=== PATIENT | male | born 1955 | race Caucasian/White ===

== ENCOUNTER 2018-06-07 18:38 | Inpatient (IN) | payer SELFPAY ==
[2018-06-07 22:24] LABS: Troponin I Less than 0.010 ng/mL (< 0.028)
[2018-06-07 22:46] LABS: CKMB 9.3 ng/mL (0-6.6)
[2018-06-08 01:03] LABS: Troponin I Less than 0.010 ng/mL (< 0.028)
[2018-06-08] MEDS ORDERED: Acetaminophen 325 MG TAB PO PRN (01:35)
[2018-06-08] MEDS ORDERED: Ondansetron ODT 4 MG TAB SL PRN (01:35)
[2018-06-08] MEDS ORDERED: Ondansetron HCl/PF 4 MG/2 ML Vial IVP PRN (01:35)
[2018-06-08] MEDS ORDERED: Diltiazem HCl 125 MG, Admixture Fee 1 EACH in Sodium Chloride 0.9% 100 ML IVPB SCH ×2 (01:45→20:30)
[2018-06-08 02:01] VITALS: BMI 33.4
[2018-06-08 04:33] LABS: Troponin I 0.041 ng/mL (< 0.028)
[2018-06-08] MEDS ORDERED: Metoprolol Tartrate 25 MG TAB PO SCH (11:15)
[2018-06-08] MEDS ORDERED: Topiramate 100 MG TAB PO SCH (11:15)
[2018-06-08] MEDS ORDERED: Furosemide 20 MG TAB PO SCH (11:15)
[2018-06-08] MEDS ORDERED: Levothyroxine Sodium 50 MCG TAB PO SCH (11:15)
[2018-06-08] MEDS ORDERED: Divalproex Sodium 250 MG (DR) TAB PO SCH (11:15)
[2018-06-08] MEDS ORDERED: Gabapentin 400 MG CAP PO SCH (11:15)
[2018-06-08] MEDS ORDERED: Loratadine 10 MG TAB PO SCH (11:15)
[2018-06-08 11:20] LABS: Bilirubin Negative (Negative); Blood, Urine Negative (Negative); Glucose, Urine (Dipstick) Negative (Negative); Leukocyte Negative (Negative); Nitrite Negative (Negative); Protein, Urine (Dipstick) Negative (Neg-Trace); Specific Gravity, Urine 1.015 (1.005-1.030); pH, Urine 7.5 (5.0-9.0)
[2018-06-08 11:22] LABS: Clarity Clear (Clear)
[2018-06-08 12:02] LABS: INR-International Normal Ratio 1.9; Prothrombin Time 21.5 SEC (12.0-14.7)
[2018-06-08] MEDS ORDERED: Digoxin 0.5 MG/2 ML AMP SLOW IVP SCH (14:30)
[2018-06-08] MEDS ORDERED: Enoxaparin Sodium 40 MG/0.4 ML SYRINGE SC SCH (16:15)
[2018-06-08] MEDS: Gabapentin 400 MG CAP PO SCH ×2 (16:36→20:42)
[2018-06-08] MEDS: Divalproex Sodium 250 MG (DR) TAB PO SCH ×2 (16:36→20:43)
[2018-06-08] MEDS ORDERED: Warfarin Sodium 5 MG TAB PO SCH (17:00)
--- NOTE | 2018-06-08 19:06 | CON ---
DATE OF CONSULTATION: 06/08/2018 REASON FOR CONSULTATION: Atrial flutter. PRIMARY CHILD DEVELOPMENT ASSISTANT: Juan Nicholson M.D. HISTORY OF PRESENT ILLNESS: Mr. Thomason is a very pleasant 62-year-old white gentleman who comes to the hospital for tachycardia. He was at his regular appointment with his physician for his lower ext remity edema and back pain. He was found to have a heart rate in the 130s range, so he was transferr ed over as he was found to be in atrial flutter. He has a history of paroxysmal atrial fibrillation. He has been in and out of atrial fibrillation actually last time we saw him was in December of this year. He had an echo at that time that showed he had asymmetric septal hypertrophy; However, his LV OT did not show any significant gradient. His EF was normal and he was in atrial fibrillation at daiana t time. By the time I saw him a few days later, he was already back in sinus rhythm. He has been to lerating his amiodarone well as well as his anticoagulation. He has a history of seizure disorder, b ut has not had one in many years. PAST MEDICAL HISTORY: 1. Paroxysmal atrial fibrillation. 2. Seizure disorder in remission for many years. 3. Hypothyroidism. 4. Hyperlipidemia. PAST SURGICAL HISTORY: 1. Neurostimulator implants on the left chest. 2. Spinal surgery. OUTPATIENT MEDICATIONS: Include, 1. Divalproex. 2. Gabapentin. 3. Topiramate. 4. Levothyroxine 50 mcg a day. 5. Metoprolol 25 mg twice a day. 6. Zyrtec. 7. Lasix 20 mg a day. 8. MiraLax. 9. Warfarin. 10. Simvastatin 20 mg at bedtime. 11. Amiodarone 200 mg a day. ALLERGIES: No known drug allergies. SOCIAL HISTORY: No alcohol, tobacco or drugs. Lives with his brother and [id number]. Sister-in- law is very involved in his care. FAMILY HISTORY: Mother at 70 of unknown causes. Father is alive with dementia. REVIEW OF SYSTEMS: A 12-point review of systems was done and negative unless stated in the history o f present illness. PHYSICAL EXAMINATION: VITAL SIGNS: Temperature 97.5, pulse 124, respiratory rate 20, satting 95% on room air, blood pressu re 119/69. GENERAL: Awake, alert, and oriented x3, in no distress. HEENT: Normocephalic, atraumatic. NECK: Supple. LUNGS: Clear. CARDIOVASCULAR: S1, S2, no S3, S4, no murmurs. ABDOMEN: Soft with positive bowel sounds. EXTREMITIES: No edema. SKIN: Warm and dry. LABORATORY WORK: Reviewed. Potassium was normal. Troponin is negative x2. BNP was only 263, trigl ycerides 169, otherwise normal cholesterol LDL of 58. TSH was normal. UA unremarkable. Valproic ac id was normal. INR was 2.4 yesterday, 1.9 today. CBC unremarkable. ASSESSMENT AND PLAN: Atypical atrial flutter: He does have a history of this. I have not really st opped his amiodarone, he might have stopped it recently with his edema and he was being treated with Lasix as well. Electrophysiology already evaluated and he will get a cardioversion in the morning, I could perform this tomorrow. He can most likely go home after that. We will follow up with him in the office with an outpatient echo in about 1-2 months. Thank you for letting us participate in the care of your patient. We will follow.
[2018-06-08] MEDS: Topiramate 100 MG TAB PO SCH (20:43)
[2018-06-08] MEDS: Metoprolol Tartrate 25 MG TAB PO SCH (20:43)
[2018-06-08] MEDS: Atorvastatin Calcium 10 MG TAB PO SCH (20:43)
[2018-06-09] MEDS: Levothyroxine Sodium 50 MCG TAB PO SCH (04:17)
[2018-06-09] MEDS: Loratadine 10 MG TAB PO SCH (04:17)
[2018-06-09] MEDS: Metoprolol Tartrate 25 MG TAB PO SCH ×2 (04:17→21:10)
[2018-06-09] MEDS: Topiramate 100 MG TAB PO SCH ×2 (04:17→21:13)
[2018-06-09] MEDS: Gabapentin 400 MG CAP PO SCH ×3 (04:18→21:11)
[2018-06-09] MEDS: Divalproex Sodium 250 MG (DR) TAB PO SCH ×3 (04:18→21:11)
[2018-06-09 04:58] LABS: INR-International Normal Ratio 1.8; Prothrombin Time 20.8 SEC (12.0-14.7)
--- NOTE | 2018-06-09 08:48 | CON ---
DATE OF CONSULTATION: 06/08/2018 ELECTROPHYSIOLOGY CONSULTATION REPORT REFERRING PHYSICIAN: Dr. Nicholson. I am seeing Mr. Thomason at our [facility] telemetry for electrophysiology field sales consultant. His p roblems are, 1. Recurrent atrial arrhythmias. A. Paroxysmal atrial fibrillation, status post extensive left atrial ablation procedure, Dr. Garcia dt in January 2017. On the early recurrence of atrial flutter, prompting amiodarone initiation and car dioversion in 02/2017. B. Amiodarone stopped in about 07/2017. C. Current presentation with atypical atrial flutter with rapid rates of unclear duration. 2. On chronic anticoagulation with creatinine 1.9. 3. History of hypertension. 4. History of obesity. 5. History of traumatic brain injury and subsequent craniotomy, seizure disorder, chronic mental sta tus changes. 6. Seizure disorder, under control with vagal stimulator in place. ALLERGIES: None noted. MEDICATIONS AT HOME: Include simvastatin, gabapentin, Depakote, levothyroxine, topiramate, furosemid e, cetirizine, warfarin, metoprolol. SUBJECTIVE: Mr. Thomason is here due to the fact that his primary care physician, Dr. Christianson has foun d atrial flutter/fibrillation and rapid rates at his office. He was sent to the ER in [place], eventually transferred to our facility, he was placed on diltiazem drip and his rates are better cont rolled now. Throughout this, he voiced minimal complaints, although he is rather a poor historian. There is some notion of increased lower extremity edema recently. He denies dizziness, loss of consc iousness, no stroke-like symptoms, no chest pain, no fever, chills, cough, no bleeding issues. He re gularly checks his INR levels. REVIEW OF SYSTEMS: Twelve-point system otherwise unremarkable. PAST MEDICAL HISTORY: As above. SOCIAL HISTORY: Patient denies smoking, ETOH or drug use. FAMILY HISTORY: Noncontributory. OBJECTIVE: VITAL SIGNS: Blood pressure 151/94, heart rate 124, respirations 20, temperature 98.7 degrees Fahren heit. GENERAL: He is alert and oriented, obese man in no apparent distress. NECK: Supple. Jugular veins not distended. CHEST: Coarse without crackles. CARDIAC: Heart sounds are irregularly irregular. S1 and S2 variable. No murmur or gallop. ABDOMEN: Benign. Bowel sounds positive. EXTREMITIES: Lower extremities without edema, clubbing or cyanosis. Pulses are adequate. DATABASE: EKG initially reveals atrial flutter with variable AV conduction, it appears to be atypica l atrial flutter present. Cannot completely rule out . LABORATORY DATA: Sodium 139, potassium 4.2 yesterday, BUN is 15, creatinine is 1.32. The AST, ALT a re 23 and 22. BNP was 263, total cholesterol 122. The INR 1.9 today, 2.4 yesterday, 2.3 on 05/23 an d 2.2 on 05/08. Chest x-ray from yesterday revealed active cardiopulmonary abnormalities. ASSESSMENT AND PLAN: Mr. Thomason is a pleasant 62-year-old man with prior history of traumatic brain injury, persistent atrial fibrillation pulmonary venous isolation. He had some recurrent atri al flutter, is now off amiodarone. We discussed treatment options with his family present. It would be reasonable to cardiovert him and consider resuming some antiarrhythmic agents. He has done well on amiodarone in the past. If his l eft ventricular function is preserved, we could consider also Multaq as an alternative. We will obta in a 2D echo and schedule him for cardioversion tomorrow. His INR levels have been good yesterday, s lightly on the lower end today, need extra Lovenox to minimize chance of stroke. For now, I agree wi th rate control, continue digoxin, IV diltiazem, and metoprolol p.o. We will follow with you. Thank you for the consult.
[2018-06-09] MEDS: Furosemide 20 MG TAB PO SCH (10:50)
[2018-06-09] MEDS ORDERED: PROPOFOL 20 ML ONE (12:46)
--- NOTE | 2018-06-09 14:00 | EKG ---
Test Reason : Blood Pressure : / mmHG Vent. Rate : 125 BPM Atrial Rate : 250 BPM P-R Int : 000 ms QRS Dur : 090 ms QT Int : 332 ms P-R-T Axes : 006 038 004 degrees QTc Int : 479 ms Unusual P axis, possible ectopic atrial tachycardia Abnormal ECG Confirmed by ELENO TROTTER ([id number]) on 06/09/2018 1:59:31 PM Referred By: JEAN Confirmed By:ELENO TROTTER
[2018-06-09] MEDS ORDERED: PROPOFOL 200 MG/20 ML VIAL ONE (14:19)
[2018-06-09] MEDS ORDERED: Enoxaparin Sodium 40 MG/0.4 ML SYRINGE SC SCH (15:15)
[2018-06-09] MEDS ORDERED: Dronedarone HCl 400 MG TAB PO SCH (15:30)
--- NOTE | 2018-06-09 17:09 | PDOC.CTH ---
Cardiology Progress Note - Subjective No new issues. - Objective Vital Signs Temp Pulse Resp BP Pulse Ox 06/09/18 11:48 97.5 F L 63 19 115/69 92 L 06/09/18 08:00 97.8 F 63 16 06/09/18 07:29 97.8 F 63 16 107/61 94 L Weight 273 lb 06/08/18 06/09/18 06/10/18 06:59 06:59 06:59 Intake Total 5.8 1294.6 Output Total 350 800 350 Balance -344.2 494.6 -350 - Physical Examination General/Neuro: alert & oriented x3, NAD Neck: no JVD present Lungs: unlabored respirations Heart: other: (irreg) Abdomen: NT/ND Extremities: + edema B (trace) - Telemetry Telemetry Rhythm: Aflutter - Labs Troponin/CKMB CK-MB (CK-2) 9.3 ng/mL (0-6.6) H* 06/07/18 21:42 Troponin I 0.041 ng/mL (< 0.028) H 06/08/18 04:03 - Assessment/Plan 1. Atypical atrial flutter. 2. Hx of afib s/p ablation PLAN: - Cardioversion today.
[2018-06-09] MEDS: Warfarin Sodium 2.5 MG TAB PO SCH (18:11)
--- NOTE | 2018-06-09 20:50 | OP ---
DATE OF SERVICE: 06/09/2018 CARDIOVERSION REPORT REFERRING PHYSICIAN: Juan Nicholson M.D. REASON FOR PROCEDURE: Mr. Thomason is a 62-year-old man with prior history of atrial arrhythmias. He underwent prior ablation and subsequently required amiodarone for suppression of his rhythm. He is now here with recurrent arrhythmias. He has been on warfarin and adequate anticoagulation. PROCEDURE IN DETAIL: The patient received propofol per Anesthesia specialist. After adequate level of sedation achieved, a synchronized 70 joule shock failed to convert him back to sinus rhythm. A fo llowup 150 joule shock, though convert him back to sinus rhythm with a rate about 55. The patient to lerated the procedure well, no complications noted. PLAN: Continue anticoagulation, target INR 2-3. Stop IV diltiazem and add Multaq to the regimen.
[2018-06-09] MEDS: Atorvastatin Calcium 10 MG TAB PO SCH (21:10)
--- NOTE | 2018-06-09 23:26 | PDOC.PN ---
- Subjective Encounter Start Date: 06/09/18 Encounter Start Time: 16:00 Subjective: nsg notes rev, bennie ovn, no new c/o, no active palpitations at this time -: denies CP, SOB - Objective Vital Signs & Weight: Vital Signs (12 hours) Temp Pulse Resp BP Pulse Ox 06/09/18 20:00 98.7 F 90 18 126/91 H 96 06/09/18 11:48 97.5 F L 63 19 115/69 92 L Weight Weight 273 lb I&O: 06/08/18 06/09/18 06/10/18 06:59 06:59 06:59 Intake Total 5.8 1294.6 250 Output Total 350 800 350 Balance -344.2 494.6 -100 Phys Exam - Physical Examination Constitutional: NAD lying in hospital bed HEENT: PERRLA, moist MMs Respiratory: no wheezing, no rales, no rhonchi, clear to auscultation bilateral Cardiovascular: RRR, no significant murmur, no rub Gastrointestinal: soft, positive bowel sounds Musculoskeletal: pulses present Neurological: moves all 4 limbs Psychiatric: normal affect, A&O x 3 Dx/Plan - Plan cont current plan of care * atrial flutter * s/p ablation * apprec card c/s, EP c/s * mgmt as per specialty recs hypothyroidism - stable, continue home regimen hx TBI s/o neurostim - stable, continue home regimen CKD -stable, continue home regimen diet: cardiac activity: as puja
[2018-06-10 05:31] LABS: Prothrombin Time 23.1 SEC (12.0-14.7)
[2018-06-10] MEDS: Levothyroxine Sodium 50 MCG TAB PO SCH (06:03)
[2018-06-10] MEDS: Loratadine 10 MG TAB PO SCH (09:33)
[2018-06-10] MEDS: Dronedarone HCl 400 MG TAB PO SCH ×2 (09:33→17:01)
[2018-06-10] MEDS: Metoprolol Tartrate 25 MG TAB PO SCH (09:33)
[2018-06-10] MEDS: Gabapentin 400 MG CAP PO SCH ×2 (09:33→15:33)
[2018-06-10] MEDS: Furosemide 20 MG TAB PO SCH (09:34)
[2018-06-10] MEDS: Divalproex Sodium 250 MG (DR) TAB PO SCH ×2 (09:34→15:30)
[2018-06-10] MEDS: Topiramate 100 MG TAB PO SCH (09:35)
--- NOTE | 2018-06-10 11:40 | PDOC.CTH ---
<Elvia Zuniga - Last Filed: 06/10/18 11:38> Cardiology Progress Note - Subjective EP progress note: patient seen an evaluated. No new cardiac concerns or complaints. Family is bedside. Feeling fine after DCCV yesterday. Seems to be tolerating Multaq well. Denies heart racing, palpitations, chest pain/pressure, stroke like symptoms, passing out or lightheaded. - Objective Vital Signs Temp Pulse Resp BP Pulse Ox 06/10/18 08:00 96.3 F L 89 18 135/93 H 94 L 06/10/18 03:57 97.7 F 88 16 126/80 95 Weight 273 lb 06/09/18 06/10/18 06/11/18 06:59 06:59 06:59 Intake Total 1294.6 250 Output Total 800 350 Balance 494.6 -100 - Physical Examination General/Neuro: NAD, other: (alert. mentally slow) Neck: no JVD present Lungs: CTA, unlabored respirations Heart: PMI normal, RRR Abdomen: NT/ND, soft - Telemetry Telemetry Rhythm: NSR - Labs Troponin/CKMB CK-MB (CK-2) 9.3 ng/mL (0-6.6) H* 06/07/18 21:42 Troponin I 0.041 ng/mL (< 0.028) H 06/08/18 04:03 - Assessment/Plan 1. Late recurrent atrial arrhythmias. Hx atrial fibrillation s/p PVAI in the remote past. Now with recent atrial flutter s/p DCCV yesterday. Maintaining NSR with AF suppressed by Multaq. Has been on amiodarone in the past with moderate suppression. If Multaq fails, we will discuss potential further treatment options. 2. OAC on warfarin: CHADS2-Vasc score of 1 on the basis of hypertension. Continue with warfarin, goal INR 2-3. Reconsider OAC in future if high bleed risk. 3. Preserved EF by 2D echo 55-60% OK for DC by EP. Follow up in 4-6 weeks with [facility] will be arranged. <Jimmy Enriquez - Last Filed: 06/10/18 14:55> Cardiology Progress Note - Objective Vital Signs Temp Pulse Resp BP Pulse Ox 06/10/18 12:00 96.9 F L 82 17 128/88 95 06/10/18 08:00 96.3 F L 89 18 135/93 H 94 L 06/10/18 03:57 97.7 F 88 16 126/80 95 Weight 273 lb 06/09/18 06/10/18 06/11/18 06:59 06:59 06:59 Intake Total 1294.6 250 Output Total 800 350 Balance 494.6 -100 - Labs Troponin/CKMB CK-MB (CK-2) 9.3 ng/mL (0-6.6) H* 06/07/18 21:42 Troponin I 0.041 ng/mL (< 0.028) H 06/08/18 04:03 Attending Addendum - Attending Addendum Date/Time: 06/10/18 [id number] I personally evaluated the patient and discussed the management with Ms Zuniga. I agree with the History, Examination, Assessment and Plan documented above with any addition or exceptions noted below.
[2018-06-10 15:38] VITALS: BP 133/77; TEMP 97.4
[2018-06-10] MEDS: Warfarin Sodium 2.5 MG TAB PO SCH (17:01)
== END 2018-06-10 18:23 | disposition home or self-care (01) | DRG 310 ==
LOC: ERS 18:38 → 2SW 23:15 → OBSVTOIN 23:15 → 2NO 06-09 13:08
PROVIDERS: ADMIT Family Medicine; ATTEND Family Medicine
PROC: 5A2204Z Restoration of Cardiac Rhythm, Single (ICD-10-PCS; principal; 2018-06-09)
DX: I48.0 Paroxysmal atrial fibrillation (principal); Z79.01 Long term (current) use of anticoagulants; E66.9 Obesity, unspecified; I48.92 Unspecified atrial flutter; G40.909 Epilepsy, unspecified, not intractable, without status epilepticus; E78.5 Hyperlipidemia, unspecified; E03.9 Hypothyroidism, unspecified; K59.00 Constipation, unspecified; H91.90 Unspecified hearing loss, unspecified ear; D69.6 Thrombocytopenia, unspecified; M54.5 Low back pain; I12.9 Hypertensive chronic kidney disease with stage 1 through stage 4 chronic kidney disease, or unspecified chronic kidney disease; N18.9 Chronic kidney disease, unspecified; Z68.33 Body mass index [BMI] 33.0-33.9, adult
CPT/HCPCS: 36415; 80164; 81003; 82553; 84443; 84484; 85610; 92960; 93005; 93010; 93306; 96365; 96366; A4216; J1650; J2704; J7050

== ENCOUNTER 2018-10-24 18:45 | Observation (INO) | payer MEDICARE, SELFPAY ==
[2018-10-24 19:20] LABS: #Lymphocytes 1.2 thou/uL (1.20-3.40); #Monocytes 1.2 thou/uL (0.11-0.59); #Neutrophils 5.6 thou/uL (1.40-6.50); %Basophils 0.5 % (0.0-1.0); %Eosinophils 0.5 % (0.0-10.0); %Monocytes 14.9 % (0.0-10.0); %Neutrophils 69.2 % (42.0-75.0); Hemoglobin 14.3 g/dL (14.0-18.0); Mean Corpuscular HGB CONC 33.2 g/dL (32.0-36.0); Mean Corpuscular Hemoglobin 30.7 pg (27.0-31.0); Mean Corpuscular Volume 92.5 fL (78.0-98.0); Mean Platelet Volume 9.6 fL (7.4-10.4); Platelet Count 137 thou/uL (130-400); RBC Distribution Width 13.7 % (11.5-14.5); Red Blood Cell (RBC) Count 4.66 mill/uL (4.70-6.10); White Blood Cell (WBC) Count 8.1 thou/uL (4.8-10.8)
[2018-10-24 19:25] LABS: INR-International Normal Ratio 1.8; PTT 35.6 SEC (22.9-36.1); Prothrombin Time 21.2 SEC (12.0-14.7)
[2018-10-24 19:44] LABS: Troponin I Less than 0.010 ng/mL (< 0.028)
[2018-10-24 19:45] LABS: Bilirubin Small (Negative); Blood, Urine Negative (Negative); Clarity CLEAR (Clear); Glucose, Urine (Dipstick) Negative (Negative); Leukocyte Negative (Negative); Nitrite Negative (Negative); Protein, Urine (Dipstick) Negative (Neg-Trace); Specific Gravity, Urine 1.023 (1.002-1.036)
[2018-10-24 19:45] LABS: ALT (SGPT) 25 U/L (8-55); AST (SGOT) 37 U/L (5-34); Albumin 4.1 g/dL (3.4-4.8); Alkaline Phosphatase 80 U/L (40-150); Anion Gap 8 mmol/L (10-20); BUN (Urea Nitrogen) 21 mg/dL (8.4-25.7); Bilirubin, Total 0.9 mg/dL (0.2-1.2); CK (CPK) 1016 U/L (30-200); Calc. Creatinine Clearance 0 mL/min (70-130); Calcium 9.3 mg/dL (7.8-10.44); Carbon Dioxide 27 mmol/L (23-31); Chloride 102 mmol/L (98-107); Estimated GFR-MDRD 61; Globulin 3.9 g/dL (2.4-3.5); Glucose 71 mg/dL (80-115); Lipase 41 U/L (8-78); Potassium 4.2 mmol/L (3.5-5.1); Sodium 133 mmol/L (136-145)
[2018-10-24] MEDS ORDERED: levETIRAcetam In NaCl (Iso-Os) 1,000 MG in Premix Bag 1 BAG IVPB ONE (19:45)
[2018-10-24 19:48] LABS: CKMB 13.4 ng/mL (0-6.6)
--- NOTE | 2018-10-24 20:33 | RAD ---
PORTABLE CHEST: HISTORY: Seizure with patient found on floor, complaining of back pain. FINDINGS: Heart size is slightly enlarged. An electronic device is seen overlying the left chest. The lungs a re clear of infiltrates. I do not see any signs of pneumothorax or rib fractures. IMPRESSION: Cardiomegaly. POS: [facility]
--- NOTE | 2018-10-24 21:13 | CT ---
HEAD CT WITHOUT CONTRAST: 10/24/2018 HISTORY: Possible seizure activity. COMPARISON: 02/24/2017 TECHNIQUE: Axial CT imaging at 5 mm intervals, from the vertex through the skull base, without contrast. FINDINGS: The imaged paranasal sinuses and mastoid air cells are well aerated. There is evidence of a prior ri ght-sided craniotomy. No intracranial hemorrhage, midline shift, or mass effect is seen. There is m ild diffuse cerebral volume loss, stable. Stable kevin cisterna magna noted. No intracranial hemorrh age, midline shift, or mass effect. IMPRESSION: Stable head CT. No acute findings. POS: [facility]
[2018-10-25] MEDS ORDERED: WARFARIN PO PRN (02:37)
[2018-10-25 03:33] LABS: INR-International Normal Ratio 1.9; Prothrombin Time 21.8 SEC (12.0-14.7)
[2018-10-25] MEDS: Levothyroxine Sodium 50 MCG TAB PO SCH (07:45)
[2018-10-25] MEDS ORDERED: Divalproex Sodium DR 500 MG TAB PO SCH ×3 (09:00→11:45)
[2018-10-25 10:15] VITALS: BMI 26.9
[2018-10-25] MEDS ORDERED: Metoprolol Tartrate 25 MG TAB ONE (11:23)
[2018-10-25] MEDS: Metoprolol Tartrate 25 MG TAB PO SCH ×2 (11:31→21:27)
--- NOTE | 2018-10-25 12:25 | HP ---
CHIEF COMPLAINT: Seizure. HISTORY OF PRESENT ILLNESS: Patient is a 63-year-old male, who has a history of a seizure and also h as a history of falls causing cerebral bleeding and status post craniotomy, who presented to the hosp ital after he was found down by his family member. The patient's sister is at the bedside stated daiana t she and her brother keep a very close eye on the patient in regard to medications and his appointme nts and so on and so forth. Patient's sister stated that last time she saw him was Wednesday at 9:00 a. m. when he was complaining of some right-sided shoulder pain and back pain when she put out his medic ations for the following week. Patient's sister then stated that, when she went to pick him up on around 4:30 for his appointment, she saw him lying next to the recliner and [facility]. The patient's sister stated, at that time, he was awake and was responsive at this ti me. EMS was called and the patient was brought into the hospital for further evaluation. The patient's sister stated that the only recent changes on his medications has been the Neurontin, w hich was decreased from 1200 mg t.i.d. to 900 mg t.i.d.; it was done about a month ago. The patient, according to her, has been compliant with medications except for Wednesday when she noticed that he did not take his medications. She states that there is normally an alarm that will go off to remind him to take his medications. Patient currently is awake, slow in responding, follows commands. Denies any fever or chills; however, complains of generalized body aches and pains all over. PAST MEDICAL HISTORY: 1. He has a history of seizures since young age. 2. He also has a history of atrial fibrillation, status post cardioversion, currently is in sinus. He is on anticoagulation. 3. He has hypothyroidism. 4. Dyslipidemia. 5. Hypertension. 6. Gastroesophageal reflux disease. PAST SURGICAL HISTORY: The patient has had a craniotomy after a seizure, which caused him to have a fall, which caused a brain bleed. Per notes, the patient also has had a neurostimulator for his seiz ures in the past. CURRENT MEDICATIONS: That are in the computer are as of the followin. Patient takes warfarin 2.5 Tuesdays and and takes 5 mg the remaining. 2. He is on Lasix of 20 mg daily. 3. He is on Multaq 400 mg b.i.d. 4. He is on Depakote 500 mg t.i.d. 5. He is on sertraline 10 mg daily. 6. He is on gabapentin 900 mg t.i.d. 7. Levothyroxine 50 mcg daily. 8. Metoprolol 25 mg daily. 9. Simvastatin 20 mg daily. 10. Topamax 100 mg b.i.d. ALLERGIES: Patient has no known drug allergies. SOCIAL HISTORY: Denies any alcohol use, drug use. Patient lives alone, he does not drive. This is per previous documentations. FAMILY HISTORY: Mother at the age of 72 from unknown causes. REVIEW OF SYSTEMS: Unable to obtain. Currently, patient still has some confusion. PHYSICAL EXAMINATION: VITAL SIGNS: As of the following, temperature of 98.8. His heart rate was in 69. His blood pressur e was 137/84, 99% on room air, 16 respirations. GENERAL: He is awake, alert, oriented x2. CARDIOVASCULAR: S1 and S2 present, regular rhythm. No murmurs heard. LUNGS: Clear to auscultation. No rhonchi or wheezes noted. ABDOMEN: Soft and nontender. Bowel sounds are present x2. EXTREMITIES: He does have +1 lower extremity pitting edema. SKIN: He does have chronic venous changes in his bilateral lower extremities. MUSCULOSKELETAL: Neurovascular rudd, he has no focal deficits. He is able to move his bilateral upp er extremity 5/5, bilateral lower extremity 5/5. Sensation is also intact bilateral upper and bilate ral lower. NEUROLOGIC: He is able to tell me his name. He is able to tell me he is in the hospital. He recogn izes his sister. He is able to follow commands; however, he does not recall what month and year we a re in. Per the patient's sister, this is not normal for him. LABORATORY RESULTS: As of the following: WBCs of 8.1, hemoglobin of 14.4, hematocrit 43.2, platelet s of 137. Chemistries: Sodium of 133, potassium of 4.2, BUN of 21, creatinine 1.21. Glucose was 71 . CK was 1016. CK-MB was 13.4. LFTs: His AST was mildly elevated, which also has been elevated pr eviously. I checked an ammonia level, which was 47. His TSH was 3.12 and his vitamin B12 level was 299, and his prolactin level was 6.43. He did have a chest x-ray, which did not indicate any acute a bnormalities per my interpretation. Also, a brain CT did not show any acute bleeds. Urinalysis was normal. ASSESSMENT AND PLAN: The patient is a very pleasant 63-year-old male, who presents to the hospital a fter being found down by family. 1. Acute on chronic seizure. The patient's Depakote level was 25, which is low, normal is between 5 0-100. I did consult Neurology, who recommended giving him a loading dose of 1500 mg currently and t hen increasing it to 1000 b.i.d. The patient did get Keppra in the ER. I do not think there is any infectious etiology that could precipitate this like urinary tract infection or pneumonia. The patie nt has no symptoms currently or per his sister either. The patient's Neurontin was recently changed from 1200 mg t.i.d. to 900 mg t.i.d. This could be a possibility. However, this change was made abo wa a month ago. The patient's family also is pretty adamant that he is very compliant with his medic ations, maybe switching him from something like Depakote to maybe Keppra would possibly be a good opt ion. 2. Rhabdomyolysis. The patient's CK was 1016. His urinalysis did not indicate any blood or any RBC s were not checked. We will continue some IV hydration. This is probably from the fall and we will continue to monitor. 3. Dehydration. The patient clinically appeared very dehydrated. We will continue some IV hydratio n. 4. History of atrial fibrillation, currently he is sinus rhythm. His INR was subtherapeutic, his IN R was 1.9. We will continue his Coumadin. There is a risk of falls and being on Coumadin. I discus sed this with the sister. However, currently she wants everything to be continued for now. 5. Deep venous thrombosis prophylaxis. The patient is already on Coumadin. So, I did speak with the patient's sister, who was concerned about the patient's mentation still not being at baseline. I explained to her this could be multifactorial given the fact that the patient a ppears dehydrated, has rhabdomyolysis, and also had a seizure, and given his history of brain injury and craniotomy, might take some time getting back to baseline. Patient currently is able to move all extremities and to follow commands. However, he is just very slow in responding, which she states t hat normally he is very slow in responding, but according to her, he is more slower than his usual se lf. Again, he does not have a urinary tract infection. Chest x-ray did not indicate any acute abnor malities, and also echocardiogram, which was done in 05/2018, indicated an EF of 55%-60% with just so me mild mitral regurgitation and mild tricuspid regurgitation.
--- NOTE | 2018-10-25 15:22 | EEG ---
Referring Physician: Jamar MARCUM EEG # [id number] TEST TYPE: ROUTINE PORTABLE INPATIENT REPORT: AN EEG USING THE INTERNATIONAL TEN-TWENTY SYSTEM OF ELECTRODE PLACEMENT WAS PERFORMED. The best waking background is a low amplitude 9 hertz alpha frequency. Overall , the background is a bit suppressed over both hemispheres. Photic stimulation was unremarkable. No epileptiform features were present. No sleep transients were noted. IMPRESSION: THIS STUDY SUGGESTS A POST-ICTAL STATE WITHOUT ANY EPILEPTIFORM FEATURES Scout: NEY Assistant Teaching Professor: EEG.CARL JUÁREZ
[2018-10-25] MEDS ORDERED: Warfarin Sodium 2.5 MG TAB PO SCH (17:00)
[2018-10-25] MEDS: Loratadine 10 MG TAB PO SCH (20:22)
[2018-10-25] MEDS: Topiramate 100 MG TAB PO SCH ×2 (20:22→21:27)
[2018-10-25] MEDS: Dronedarone HCl 400 MG TAB PO SCH (20:22)
[2018-10-25] MEDS: Gabapentin 300 MG CAP PO SCH ×2 (20:23→21:27)
[2018-10-25] MEDS ORDERED: Amiodarone 200 MG TAB PO SCH (21:00)
[2018-10-25] MEDS: Divalproex Sodium DR 500 MG TAB PO SCH (21:26)
[2018-10-25] MEDS: Atorvastatin Calcium 10 MG TAB PO SCH (21:27)
--- NOTE | 2018-10-25 21:33 | CON ---
DATE OF CONSULTATION: 10/25/2018 CONSULTING PHYSICIAN: ER Services. IMPRESSION: Recurrent seizure secondary to missed doses and subtherapeutic level of Depakote. PLAN: 1. The patient has been loaded with 1500 mg IV and will continue on higher maintenance dose of 1000 mg twice a day. 2. Follow up with his [facility] neurologist. HISTORY OF PRESENT ILLNESS: Mr. Thomason is a 63-year-old man who has a history of traumatic brain injury some 18 years ago. He has some residual cognitive impairment and is not held on a job in quite sometime. 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 He has been followed by neurologist at [facility]. He was currently on a combination of Topamax and Depakote. He apparently missed at least 2 doses of medicine yesterday. He started having recurrent seizures that essentially were status epilepticus. He was brought into the ER for evaluation. He was brought under control and subsequently was found to have a Depakote level of 23. He has had a loading dose and has been stable for the remainder of the afternoon. His brother reports that he is slight bit more sluggish in his baseline, but he is otherwise doing reasonably well. PAST MEDICAL HISTORY: Traumatic brain injury with secondary seizures, low back pain, and joint pain. ALLERGIES: PER CHART. SOCIAL HISTORY: No tobacco or alcohol use. FAMILY HISTORY: Not obtained. MEDICATIONS: Medication list was reviewed. REVIEW OF SYSTEMS: Unremarkable. PHYSICAL EXAMINATION: GENERAL: He is a somewhat overweight middle-aged gentleman, lying in bed, in no acute distress. HEENT: Indentation on the right side of the skull. His pupils are equal. Conjunctivae are clear. Oropharynx clear. Tongue did not appear injured. NEUROLOGIC: His responses were sluggish, but appropriate. He follow commands reasonably well. His speech seem to be reasonably fluent, although limited in content. No facial asymmetry was noted. He seemed to have equal antigravity strength in the extremities. Plantar responses downgoing on the right, upgoing on the left. Gait was not tested. No abnormal movements were seen. SUMMARY: This is a gentleman with traumatic brain injury and secondary seizures. He seems to be stable at this point. The family is going to decide whether they want to bring him home this evening or tomorrow. Job ID: [id number]
[2018-10-26 04:40] LABS: INR-International Normal Ratio 1.7; Prothrombin Time 20.1 SEC (12.0-14.7)
[2018-10-26] MEDS: Levothyroxine Sodium 50 MCG TAB PO SCH (05:15)
[2018-10-26] MEDS: Dronedarone HCl 400 MG TAB PO SCH ×2 (08:44→17:44)
[2018-10-26] MEDS: Metoprolol Tartrate 25 MG TAB PO SCH ×2 (08:44→21:04)
[2018-10-26] MEDS: Loratadine 10 MG TAB PO SCH (08:45)
[2018-10-26] MEDS: Gabapentin 300 MG CAP PO SCH ×3 (08:45→21:04)
[2018-10-26] MEDS: Topiramate 100 MG TAB PO SCH ×2 (08:46→21:04)
[2018-10-26] MEDS: Divalproex Sodium DR 500 MG TAB PO SCH ×2 (09:39→21:03)
[2018-10-26] MEDS ORDERED: Acetaminophen/Codeine 30-300mg Tablet PO PRN (10:49)
--- NOTE | 2018-10-26 12:26 | RAD ---
LUMBAR SPINE 3 VIEWS: HISTORY: Low back pain. FINDINGS: Mild degenerative changes are present. No fracture, subluxation, or bony destruction is identified. IMPRESSION: Mild lumbar spondylosis. POS: [facility]
--- NOTE | 2018-10-26 12:27 | RAD ---
RIGHT SHOULDER 3 VIEWS: HISTORY: A 63-year-old male with a history of right shoulder pain. FINDINGS: Mild degenerative changes of the AC joint and glenohumeral joins. No evidence for acute fracture or dislocation. IMPRESSION: Degenerative change without acute fracture or dislocation. POS: [facility]
--- NOTE | 2018-10-26 15:36 | PDOC.PN ---
- Subjective Encounter Start Date: 10/26/18 Encounter Start Time: 11:15 Subjective: pt up in bed more awake today - Objective Vital Signs & Weight: Vital Signs (12 hours) Temp Pulse Resp BP Pulse Ox 10/26/18 12:00 97.9 F 58 L 18 150/80 H 94 L 10/26/18 08:00 98.5 F 54 L 18 94 L 10/26/18 07:43 98.5 F 54 L 18 152/81 H 94 L 10/26/18 04:01 98.4 F 55 L 16 137/88 96 Weight Weight 204 lb 9.6 oz I&O: 10/25/18 10/26/18 10/27/18 06:59 06:59 06:59 Intake Total 240 Balance 240 Result Diagrams: 10/24/18 19:10 10/24/18 19:10 Phys Exam - Physical Examination Neck: no nodes, no JVD, supple, full ROM Respiratory: no wheezing, no rales, no rhonchi, wheezing present, clear to auscultation bilateral Cardiovascular: RRR, no significant murmur, no rub, gallop, irregular Gastrointestinal: soft, non-tender, no distention, positive bowel sounds Neurological: moves all 4 limbs alert and oriented x3 but is slow on answering questions Dx/Plan (1) Seizure Code(s): R56.9 - UNSPECIFIED CONVULSIONS Status: Acute Comment: causing encephalopathy (2) Warfarin anticoagulation Code(s): Z79.01 - RETIREMENT (CURRENT) USE OF 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 Status: Acute (3) Rhabdomyolysis Code(s): M62.82 - RHABDOMYOLYSIS Status: Acute (4) Low vitamin B12 level Code(s): E53.8 - DEFICIENCY OF OTHER SPECIFIED B GROUP VITAMINS Status: Acute - Plan will stat pt on vit b12 meds -: will recheck ck level -: PT stated pt is very weak and not at baseline -: shoulder xray and lumbar xray no acute changes * . Review of Systems - Review of Systems Respiratory: negative: Cough, Dry, Shortness of Breath, Hemoptysis, SOB with Excertion, Pleuritic Pain, Sputum, Wheezing Cardiovascular: negative: chest pain, palpitations, orthopnea, paroxysmal nocturnal dyspnea, edema, light headedness, other Gastrointestinal: negative: Nausea, Vomiting, Abdominal Pain, Diarrhea, Constipation, Melena, Hematochezia, Other Genitourinary: negative: Dysuria, Frequency, Incontinence, Hematuria, Retention , Other - Medications/Allergies Allergies/Adverse Reactions: Allergies Allergy/AdvReac Type Severity Reaction Status Date / Time No Known Allergies Allergy Verified 10/25/18 10:16 Medications: Current Medications Acetaminophen/Codeine Phosphate (Tylenol #3) 1 tab PO Q6H PRN PRN Reason: Pain Last Admin: 10/26/18 15:26 Dose: 1 tab Atorvastatin Calcium (Lipitor) 10 mg PO [facility] Last Admin: 10/25/18 21:27 Dose: 10 mg Divalproex Sodium (Depakote) 1,000 mg PO BID [facility] Last Admin: 10/26/18 09:39 Dose: 1,000 mg Dronedarone (Multaq) 400 mg PO BID-[facility] Last Admin: 10/26/18 08:44 Dose: 400 mg Gabapentin (Neurontin) 900 mg PO TID [facility] Last Admin: 10/26/18 15:24 Dose: 900 mg Levothyroxine Sodium (Synthroid) 50 mcg PO 0600 [facility] Last Admin: 10/26/18 05:15 Dose: 50 mcg Loratadine (Claritin) 10 mg PO DAILY [facility] Last Admin: 10/26/18 08:45 Dose: 10 mg Metoprolol Tartrate (Lopressor) 25 mg PO BID [facility] Last Admin: 10/26/18 08:44 Dose: 25 mg Miscellaneous Medication (Pharmacy To Dose) 1 each PO PRN PRN PRN Reason: RPH TO DOSE WARFARIN Topiramate (Topamax) 100 mg PO BID [facility] Last Admin: 10/26/18 08:46 Dose: 100 mg Warfarin Sodium (Coumadin) 2.5 mg PO AnnabellaTuThFrSa [facility] Last Admin: 10/25/18 19:28 Dose: 2.5 mg Warfarin Sodium (Coumadin) 5 mg PO [facility]
[2018-10-26] MEDS ORDERED: Ibuprofen 200 MG TAB PO SCH (15:45)
[2018-10-26] MEDS ORDERED: Warfarin Sodium 5 MG TAB PO SCH (17:00)
[2018-10-26] MEDS: Atorvastatin Calcium 10 MG TAB PO SCH (21:04)
[2018-10-26] MEDS: Ibuprofen 200 MG TAB PO SCH (21:04)
[2018-10-27] MEDS: Levothyroxine Sodium 50 MCG TAB PO SCH (04:53)
[2018-10-27 05:01] LABS: INR-International Normal Ratio 2.1; Prothrombin Time 23.5 SEC (12.0-14.7)
[2018-10-27] MEDS ORDERED: Metoprolol Tartrate 25 MG TAB PO SCH (08:16)
[2018-10-27] MEDS: Divalproex Sodium DR 500 MG TAB PO SCH (08:31)
[2018-10-27] MEDS: Dronedarone HCl 400 MG TAB PO SCH (08:31)
[2018-10-27] MEDS: Topiramate 100 MG TAB PO SCH (08:31)
[2018-10-27] MEDS: Loratadine 10 MG TAB PO SCH (08:32)
[2018-10-27] MEDS: Gabapentin 300 MG CAP PO SCH ×2 (08:32→15:12)
[2018-10-27] MEDS: Ibuprofen 200 MG TAB PO SCH (08:33)
[2018-10-27] MEDS ORDERED: Cyanocobalamin (Vitamin B-12) 1,000 MCG TAB PO SCH (09:00)
[2018-10-27 12:27] VITALS: TEMP 97.7
[2018-10-27 16:24] VITALS: BP 118/75
--- NOTE | 2018-10-28 12:12 | DIS ---
DATE OF ADMISSION: 10/24/2018 DATE OF DISCHARGE: 10/27/2018 DISCHARGE DIAGNOSES: 1. Acute on chronic seizure. 2. Physical deconditioning. 3. Mild rhabdomyolysis. 4. Vitamin B12 deficiency. HOSPITAL COURSE: The patient is a very pleasant 63-year-old male, who presented to the hospital after was found fallen on the floor by family member. The patient was postictal and thought to have a seizure. He was seen by Neurology, who increased his Depakote level since his Depakote level was low than the recommended. He did have an EEG, which did indicate postictal status without any epileptiform feature. The patient was seen by Physical Therapy and he was kept in the hospital for couple of days because of severe deconditioning and the patient lives alone with support of family. The patient does not have any insurance, unable to provide rehab for this patient. I have talked with family member, who will be staying with the patient and also hopefully will be able to provide some [facility] physical therapy as outpatient. The patient has been eating and drinking well. His TSH was 3.12. His vitamin B12 was 299, which he has been put on medications for that. MEDICATIONS: His home medications; 1. Vitamin B12 of 1000 p.o. daily. 2. Depakote 1000 mg b.i.d. 3. Lopressor 12.5 b.i.d. 4. Furosemide 20 mg daily. 5. Gabapentin 900 mg t.i.d. 6. Levothyroxine 50 mcg daily. 7. Simvastatin 20 mg at bedtime. 8. Topamax 100 mg b.i.d. 9. Warfarin 2.5 on Wednesday, Wednesday, and Wednesday and I think Warfarin 0.5 on Saturdays and Sundays. 10. Amiodarone 200 mg b.i.d. PHYSICAL EXAMINATION: VITAL SIGNS: Temperature of 97.7, pulse 50, respiratory rate 20, sats 94% on room air, and blood pressure 120/81. GENERAL: He is awake, alert, and oriented x3. Does not appear in distress. CV: S1 and S2 present. No murmurs, rubs, or gallops. ABDOMEN: Soft and nontender. Bowel sounds are present x2. EXTREMITIES: Mild lower extremity edema. NEURO: The patient is able to move all 4 extremities. He does have some slowing when he talks, which according to the family is at baseline. I did decrease the dose of the patient's metoprolol since his heart rate was in the 50s from 25 b.i.d. to 12.5 b.i.d., and he will follow up with his primary care doctor in a week. Job ID: [id number]
--- NOTE | 2018-10-29 20:20 | EKG ---
Test Reason : SEZIURES Blood Pressure : / mmHG Vent. Rate : 066 BPM Atrial Rate : 066 BPM P-R Int : 232 ms QRS Dur : 098 ms QT Int : 438 ms P-R-T Axes : 045 018 021 degrees QTc Int : 459 ms Sinus rhythm with 1st degree A-V block Otherwise normal ECG Confirmed by TERRY MARIN, LISSY ([id number]), international editorial producer BETTIE KENNEDY ([id number]) on 10/29/2018 8:20:00 PM Referred By: ASHWIN STEWART Confirmed By:LISSY STEWART MD
== END 2018-10-27 16:00 | disposition home or self-care (01) ==
LOC: ERS 18:45 → INTOOBSV 22:55 → ERHOLD 22:55 → T4-B 10-25 19:53
PROVIDERS: ADMIT Hospitalist; ATTEND Hospitalist
DX: R56.9 Unspecified convulsions (principal); M62.82 Rhabdomyolysis; E86.0 Dehydration; E53.8 Deficiency of other specified B group vitamins; I48.91 Unspecified atrial fibrillation; E03.9 Hypothyroidism, unspecified; E78.5 Hyperlipidemia, unspecified; I10 Essential (primary) hypertension; K21.9 Gastro-esophageal reflux disease without esophagitis; R79.1 Abnormal coagulation profile; M47.816 Spondylosis without myelopathy or radiculopathy, lumbar region; Z87.820 Personal history of traumatic brain injury; Z79.01 Long term (current) use of anticoagulants; Z79.899 Other long term (current) drug therapy; Z98.890 Other specified postprocedural states
CPT/HCPCS: 36415; 70450; 71045; 72100; 80053; 80164; 81003; 82140; 82550; 82553; 82607; 83690; 83880; 84146; 84443; 84484; 85025; 85610; 85730; 90471; 90686; 93005; 95816; 95819; 96361; 96365; G0008; G0378; G8978-GP-CL; G8979-GP-CK; J1953

== ENCOUNTER 2019-06-11 10:49 | Inpatient (IN) | payer MEDICARE, SELFPAY ==
[2019-06-11] MEDS ORDERED: levETIRAcetam 500 MG/100 ML PREMIX BAG ONE (11:19)
--- NOTE | 2019-06-11 11:52 | CT ---
CT Brain WO Con: 06/11/2019 11:10 AM CLINICAL HISTORY: Seizures and fall. IMAGING TECHNIQUE: Multiple CT images were obtained of the brain without IV contrast. COMPARISON: CT brain dated October 24, 2018 FINDINGS: Infarct: No acute infarct evident. Hemorrhage: None.. Hydrocephalus: None.. Basal cisterns: Normal.. Cerebral parenchyma: There is generalized cerebral and cerebellar atrophy but more atrophy is present within the region of the temporal lobes which is stable. Midline shift: None.. Cerebellum: Normal. Brainstem: Normal. OTHER: Calvarium: There is stable postsurgical change of a right sided craniotomy. Visualized Paranasal sinuses: There air-fluid levels within the right maxillary sinus and ethmoid air cells. Extracranial soft tissues:There is soft tissue swelling involving the parietal scalp bilaterally. IMPRESSION: 1. No acute intracranial abnormality. 2. Stable cerebral atrophy 3. Parietal scalp contusions. 4. Air-fluid levels within the right maxillary sinus and ethmoid air cells may reflect underlying sin usitis
--- NOTE | 2019-06-11 11:54 | CT ---
CT cervical spine without contrast: Multiple axial tones obtained through cervical spine with multiplanar reconstruction. INDICATIONS: trauma with cervical spine injury COMPARISON: none FINDINGS: Cervical vertebra maintain normal height and alignment.. Moderate degenerative changes seen throughout the cervical spine with loss of disc space, hypertrophi c spurring, and posterior spondylosis. No evidence of fracture. IMPRESSION: No acute finding
[2019-06-11 11:56] LABS: Hemoglobin 16.3 g/dL (14.0-18.0); Mean Corpuscular HGB CONC 31.6 g/dL (32.0-36.0); Mean Corpuscular Hemoglobin 31.1 pg (27.0-31.0); Mean Corpuscular Volume 98.2 fL (78.0-98.0); Mean Platelet Volume 9.7 fL (7.4-10.4); Platelet Count 185 thou/uL (130-400); Red Blood Cell (RBC) Count 5.25 mill/uL (4.70-6.10); White Blood Cell (WBC) Count 10.1 thou/uL (4.8-10.8)
[2019-06-11 12:14] LABS: ALT (SGPT) 63 U/L (8-55); AST (SGOT) 150 U/L (5-34); Acetaminophen Less than 6.0 mcg/mL (10.0-30.0); Albumin 3.9 g/dL (3.4-4.8); Alcohol Less than 10 mg/dL (Less than 10); Alkaline Phosphatase 65 U/L (40-150); Anion Gap 18 mmol/L (10-20); BUN (Urea Nitrogen) 74 mg/dL (8.4-25.7); Bilirubin, Total 1.5 mg/dL (0.2-1.2); Calc. Creatinine Clearance 0 mL/min (70-130); Carbon Dioxide 20 mmol/L (23-31); Chloride 110 mmol/L (98-107); Estimated GFR-MDRD 37; Globulin 4.2 g/dL (2.4-3.5); Glucose 131 mg/dL (80-115); Lipase 142 U/L (8-78); Potassium 3.9 mmol/L (3.5-5.1); Protein, Total 8.1 g/dL (5.8-8.1); Salicylate Less than 8.0 mg/dL (15.0-30.0); Sodium 144 mmol/L (136-145)
[2019-06-11 12:20] LABS: Band 2 % (5-11); Lymphocytes 6 % (21-51); MDiff Complete? YES; Monocytes 20 % (0-10); Neutrophil 72 % (42-75); Ovalocytes SLIGHT = 2-5 cells (100X) (0-1/hpf); Platelet Morphology Comment Appears Adequate; Polychromasia SLIGHT = 2-3 cells (100X) (0-2/hpf)
[2019-06-11 12:26] LABS: CK (CPK) 6317 U/L (30-200)
[2019-06-11 12:37] LABS: CKMB 41.5 ng/mL (0-6.6)
--- NOTE | 2019-06-11 12:37 | RAD ---
AP CHEST: Date: 06/11/19 HISTORY: Seizure. FINDINGS: Lungs appear clear of infiltrate. No evidence of vascular congestion. Heart size upper normal and sta ble. IMPRESSION: No acute process. POS: [facility]
--- NOTE | 2019-06-11 12:38 | RAD ---
RIGHT SHOULDER 3 VIEWS: Date: 06/11/19 HISTORY: Seizure. FINDINGS: No fracture or dislocation. AC joint normally aligned. IMPRESSION: No acute abnormality. POS: [facility]
--- NOTE | 2019-06-11 12:38 | RAD ---
AP PELVIS: Date: 06/11/19 HISTORY: Seizure with injury. FINDINGS: Pelvis appears intact. Mild degenerative change at both hips. No fracture or acute abnormality. IMPRESSION: No evidence of acute fracture. POS: [facility]
--- NOTE | 2019-06-11 12:38 | RAD ---
RIGHT HUMERUS 2 VIEWS: Date: 06/11/19 HISTORY: Injury. FINDINGS: No evidence of fracture. No osseous abnormality is seen. IMPRESSION: No acute abnormality. POS: [facility]
[2019-06-11 12:45] LABS: Bacteria/HPF None Seen HPF (None Seen); Bilirubin 1+ (Negative); Blood, Urine Trace (Negative); Clarity Clear (Clear); Glucose, Urine (Dipstick) Normal (Negative); Leukocyte Negative Leu/uL (Negative); Mucous/LPF 1+ LPF (<2+); Nitrite Negative (Negative); Protein, Urine (Dipstick) 100 mg/dL (Neg-Trace); RBC/HPF None Seen HPF (0-3); Squamous Epithelial None Seen HPF (0-3); WBC/HPF 0-3 HPF (0-3)
[2019-06-11 12:50] LABS: Amphetamine Not Detected (NotDetected); Barbiturates Screen Not Detected (NotDetected); Benzodiazepine Screen Not Detected (NotDetected); Cocaine Metabolite Screen Not Detected (NotDetected); Medtox Control Line Valid? VALID (VALID); Medtox Reader # READER 4; Methadone Not Detected (NotDetected); Methamphetamine Not Detected (NotDetected); Opiate Screen Not Detected (NotDetected); Oxycodone Screen Not Detected (NotDetected); Phencyclidine (PCP) Not Detected (NotDetected); THC/Cannabinoid Screen Not Detected (NotDetected); Tricyclic Screen Not Detected (NotDetected)
[2019-06-11] MEDS ORDERED: Morphine 4 MG/ML VIAL ONE (13:11)
[2019-06-11 15:27] LABS: Troponin I 0.038 ng/mL (< 0.028)
[2019-06-11] MEDS ORDERED: Morphine 4 MG/ML VIAL SLOW IVP PRN (15:31)
[2019-06-11] MEDS ORDERED: hydrALAZINE 20 MG/ML VIAL SLOW IVP PRN (15:42)
[2019-06-11 16:17] LABS: INR-International Normal Ratio 1.4; Prothrombin Time 17.3 SEC (12.0-14.7)
[2019-06-11] MEDS: Sodium Chloride 0.9% 1,000 ML IV SCH (16:17)
[2019-06-11] MEDS ORDERED: Metoprolol Tartrate 5 MG/5 ML VIAL ONE (16:19)
[2019-06-11] MEDS ORDERED: Lorazepam 2 MG/ML VIAL SLOW IVP PRN (16:52)
--- NOTE | 2019-06-11 17:03 | HP ---
PRIMARY CARE PROVIDER: Conrad Christianson MD CHIEF COMPLAINT: Found down. HISTORY OF PRESENT ILLNESS: This is a 63-year-old male with known seizure disorder, on antiepileptic medication; atrial fibrillation, on full anticoagulation with warfarin; thrombocytopenia; hypothyroidism; dyslipidemia; hypertension, who presents to the emergency room by EMS for being found down. All history is obtained by the patient's brother and sister. She was last with the patient on Wednesday 5 days ago and states that it was a normal day, he had blood work performed. She prepares this medication and reports that the patient is good at taking it on his own. She found him down today at his home, and his last medication was taken on Wednesday in the afternoon. She reports that the seizures he has are not frequent. However, when they come, they are debilitating. He was last hospitalized for seizures back in September 2018. There were no precipitants for it, no recent medication changes , and no change in health that she has noticed. Since arriving in the emergency room, the patient was a little responsive, he has received morphine for pain, and he is now asleep. REVIEW OF SYSTEMS: Not obtainable. ALLERGIES: NONE THAT ARE KNOWN BY THE PATIENT'S SISTER, HOWEVER, ASPIRIN IS LISTED ON THE ER CHART. CURRENT MEDICATIONS: Reconciled with the bottles provided by the patient's sister. 1. Vitamin B12 of 1000 mcg daily. 2. Divalproex sodium 500 mg tablets 3 times a day. 3. Gabapentin 600 mg 1-1/2 tablets 3 times a day. 4. Levothyroxine 50 mcg daily. 5. Lasix 20 mg daily. 6. Warfarin 2.5 mg tablets, takes 1/2 tablet every day except for one full tablet on Wednesday and Wednesday. 7. Simvastatin 20 mg daily. 8. Amiodarone 200 mg b.i.d. 9. Loratadine 10 mg daily. 10. Metoprolol tartrate 25 mg one-half tablet b.i.d. 11. Topiramate, a 100 mg and a 25 mg tablets together b.i.d. PAST MEDICAL HISTORY: by chart review: 1. Epilepsy. 2. Thrombocytopenia. 3. Atrial fibrillation, on anticoagulation. 4. Hypothyroidism. 5. Dyslipidemia. 6. Hypertension. 7. GERD. PAST SURGICAL HISTORY by chart review: 1. AFib ablation. 2. Craniotomy secondary to bleeding after a seizure. 3. Neurostimulator for seizures. SOCIAL HISTORY: The patient lives alone, his siblings are his surrogate decision makers, and he is a full code. FAMILY HISTORY: Significant for mother, who at 72 from unknown causes. PHYSICAL EXAMINATION: VITAL SIGNS: Blood pressure 170/95, pulse 85, respirations 18, temperature 98.2 , saturations 95% on 1 L nasal cannula. GENERAL: The patient is asleep. He does crumble to stimulus such as light touch. He is not in apparent distress. HEENT: His oral mucosa is pink and dry. NECK: Supple, nontender. LYMPHATICS: He does have palpable anterior lymph node on the left side, less than 1 cm. LUNGS: Clear to auscultation bilateral. No audible wheezing, rhonchi, or rales. HEART: Normal S1 and S2. Regular rate and rhythm. No significant murmurs. ABDOMEN: Soft with present bowel sounds. The patient does grunt with palpation , however, that is with palpation with his arms or legs, nothing unique to his abdomen and there were no palpable abnormalities. EXTREMITIES: No pitting edema, clubbing, or cyanosis. SKIN: No visible rashes. NEUROLOGIC: Unable to assess. PSYCHIATRIC: Unable to assess. VASCULAR: 2+ dorsalis pedis pulses. DIAGNOSTIC STUDIES: EKG is personally reviewed, sinus rhythm with a normal axis and a first-degree AV block at 222, if prolonged QT with a QT corrected of 467, no ST changes and occasional PVC. LABORATORY DATA: CBC: 10.1, 16.3, 51.5, 185. Chemistry: 144, 3.9, 110, 20, 74, 1.86, 131. T bilirubin 1.5, AST 150, ALT 63, alkaline phosphatase 65, total protein 8.1, albumin 3.9. Troponin 0.048 and 0.038. CK 6317, MB 41.5. Lipase 142. Urinalysis shows present protein, ketones, 1+ bilirubin, no red blood cells. Urine drug screen negative, alcohol negative, Tylenol negative, salicylates negative. IMAGING: CT of the brain without contrast shows no acute intracranial abnormality, stable cerebral atrophy, parietal scalp contusions, and air-fluid levels in the right maxillary and ethmoid air cells, which may be sinusitis. CT of the C-spine, no acute findings. Chest x-ray personally reviewed, no acute process. Right shoulder x-ray, negative. Right humerus, negative. Pelvis x-ray, negative. IMPRESSION: 1. Rhabdomyolysis in a patient found down with suspected breakthrough seizure as the source. 2. Acute kidney injury secondary to above. 3. Encephalopathy and dehydration 4. Elevated LFTs, which likely reflect muscle breakdown. 5. History of atrial fibrillation, on full anticoagulation with warfarin, with unknown INR. 6. Dyslipidemia. 7. Hypertension, uncontrolled. 8. Hypothyroidism. 9. Gastroesophageal reflux disease. 10. Left anterior cervical lymphadenopathy of unknown significance. PLAN: 1. Admission to the hospital. 2. Monitoring on telemetry. 3. Neurology consult for breakthrough seizures, we will continue IV Keppra for now and await further recommendations. 4. IV fluid hydration, monitoring renal function, and we will obtain a renal ultrasound. If not improving tomorrow, will request Nephrology consultation. 5. We will request bladder scanning and if needed, place Olguin catheter. 6. Check a TSH level and an INR. 7. Holding the warfarin given the current situation, I am concerned that Coumadin is not safe for the patient at this time. This will need to be reassessed both in the hospital and then follow up as an outpatient. 8. Given the half-life of amiodarone being long, we will hold on this for now as well as his other oral medications until he is able to safely swallow. 9. Continue beta-tashia with IV metoprolol. Use IV hydralazine prn for elevated blood pressures 10. DVT prophylaxis with pneumatic compression devices, hold on pharmacologic DVT prophylaxis until the INR is resulted. 11. GI prophylaxis. We will use IV famotidine. 12. Code status is full. Surrogate decision maker are the patient's siblings. Reviewed the plan of care with the patient's siblings. No questions or further needs at the end of evaluation. The patient is at high risk given age comorbidities and current presentation. Job ID: [id number] MTDD
[2019-06-11] MEDS: Metoprolol Tartrate 5 MG/5 ML VIAL IVP SCH ×2 (17:07→21:15)
--- NOTE | 2019-06-11 17:25 | ULT ---
Bilateral renal ultrasound CLINICAL INDICATION: Renal Insufficiency COMPARISON: None FINDINGS: Right kidney: No solid mass, or hydronephrosis. Left kidney: No solid mass, or hydronephrosis. Urinary bladder: Olguin catheter seen within a mildly distended urinary bladder. IMPRESSION: Unremarkable exam.
[2019-06-11 18:42] VITALS: BMI 31.9
[2019-06-11 18:43] LABS: Troponin I 0.042 ng/mL (< 0.028)
[2019-06-11] MEDS: levETIRAcetam In NaCl (Iso-Os) 1,000 MG in Premix Bag 1 BAG IVPB SCH (21:15)
[2019-06-11] MEDS: Famotidine/PF 20 mg/2ml Vial SLOW IVP SCH (21:15)
[2019-06-12] MEDS: Morphine 2 MG/ML SYRINGE SLOW IVP PRN ×2 (04:22→18:26)
[2019-06-12] MEDS: Metoprolol Tartrate 5 MG/5 ML VIAL IVP SCH (04:28)
[2019-06-12 04:57] LABS: INR-International Normal Ratio 1.4; Prothrombin Time 16.8 SEC (12.0-14.7)
[2019-06-12 05:15] LABS: Anion Gap 12 mmol/L (10-20); BUN (Urea Nitrogen) 59 mg/dL (8.4-25.7); Calc. Creatinine Clearance 100 mL/min (70-130); Carbon Dioxide 23 mmol/L (23-31); Chloride 117 mmol/L (98-107); Estimated GFR-MDRD 57; Glucose 104 mg/dL (80-115); Potassium 4.1 mmol/L (3.5-5.1); Sodium 148 mmol/L (136-145)
[2019-06-12] MEDS: Sodium Chloride 0.9% 1,000 ML IV SCH (05:19)
[2019-06-12 05:27] LABS: CK (CPK) 4294 U/L (30-200)
--- NOTE | 2019-06-12 06:32 | PDOC.EVN ---
Event Note - Event Note Event Note: Reviewed labs this morning and elevated sodium and chloride levels - change to D5 1/2 NS and continue to hydrate for rhabdomyolysis.
[2019-06-12] MEDS: Dextrose 5 %-0.45 % NaCl 1,000 ML IV SCH ×3 (06:38→21:45)
--- NOTE | 2019-06-12 07:49 | PDOC.PN ---
- Subjective Encounter Start Date: 06/12/19 Encounter Start Time: 07:50 Subjective: responds to questions - Objective Resuscitation Status - Order Detail: 06/11/19 15:27 Resuscitation Status Routine Resuscitation Status: FULL: Full Resuscitation MAR Reviewed: Yes Vital Signs & Weight: Vital Signs (12 hours) Temp Pulse Resp BP Pulse Ox 06/12/19 06:01 98.2 F 06/12/19 04:30 134/87 06/12/19 04:29 127/90 06/12/19 04:28 130/92 H 06/12/19 04:00 100.1 F H 90 16 132/85 89 L 06/11/19 23:00 99.6 F 92 18 143/86 H 93 L 06/11/19 19:47 98.3 F 77 20 98/62 96 Weight Weight 262 lb 9.6 oz I&O: 06/11/19 06/12/19 06/13/19 06:59 06:59 06:59 Intake Total 1100 Output Total 1050 Balance 50 Result Diagrams: 06/11/19 11:35 06/12/19 04:17 Phys Exam - Physical Examination Neck: no JVD Respiratory: clear to auscultation bilateral Cardiovascular: RRR, no significant murmur Gastrointestinal: soft, positive bowel sounds Musculoskeletal: edema present Dx/Plan (1) MARBIN (acute kidney injury) Code(s): N17.9 - ACUTE KIDNEY FAILURE, UNSPECIFIED Status: Acute Comment: resolving (2) Rhabdomyolysis Code(s): M62.82 - RHABDOMYOLYSIS Status: Acute Qualifiers: Rhabdomyolysis type: traumatic Encounter type: initial encounter Qualified Code(s): T79.6XXA - Traumatic ischemia of muscle, initial encounter (3) Seizure Code(s): R56.9 - UNSPECIFIED CONVULSIONS Status: Acute Comment: causing encephalopathy (4) Warfarin anticoagulation Code(s): Z79.01 - 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 OF 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 Status: Chronic (5) Wound dehiscence Status: Acute Qualifiers: Encounter type: initial encounter Qualified Code(s): T81.31XA - Disruption of external operation (surgical) wound, not elsewhere classified, initial encounter Comment: at site of loop recorder placement (6) Dyslipidemia Code(s): E78.5 - HYPERLIPIDEMIA, UNSPECIFIED Status: Chronic (7) Hypothyroidism Code(s): E03.9 - HYPOTHYROIDISM, UNSPECIFIED Status: Chronic Qualifiers: Hypothyroidism type: unspecified Qualified Code(s): E03.9 - Hypothyroidism , unspecified (8) Seizure disorder Code(s): G40.909 - EPILEPSY, UNSP, NOT INTRACTABLE, WITHOUT STATUS EPILEPTICUS Status: Chronic (9) Acute encephalopathy Code(s): G93.40 - ENCEPHALOPATHY, UNSPECIFIED Status: Acute - Plan brother present. discussed patient care , etc -: encephalopathy improving -: serial Ck, cont iv fluids -: speech, OT,PT, wound care -: neuro consult * .
[2019-06-12] MEDS: Famotidine/PF 20 mg/2ml Vial SLOW IVP SCH ×2 (09:43→21:41)
[2019-06-12] MEDS: levETIRAcetam In NaCl (Iso-Os) 1,000 MG in Premix Bag 1 BAG IVPB SCH (11:27)
[2019-06-12] MEDS: Topiramate 100 MG TAB PO SCH ×2 (12:06→21:49)
[2019-06-12] MEDS: Acetaminophen 325 MG TAB PO PRN (12:06)
[2019-06-12] MEDS: Metoprolol Tartrate 25 MG TAB PO SCH ×2 (12:07→21:49)
[2019-06-12] MEDS: Amiodarone 200 MG TAB PO SCH ×2 (12:08→21:49)
[2019-06-12] MEDS: Topiramate 25 MG TAB PO SCH ×2 (12:08→21:49)
[2019-06-12] MEDS: Gabapentin 300 MG CAP PO SCH ×3 (12:09→21:49)
[2019-06-12] MEDS ORDERED: Ondansetron ODT 4 MG TAB PO PRN (14:45)
[2019-06-12] MEDS: Warfarin Sodium 2.5 MG TAB PO SCH (18:32)
[2019-06-12] MEDS: Atorvastatin Calcium 10 MG TAB PO SCH (21:49)
[2019-06-13] MEDS: Dextrose 5 %-0.45 % NaCl 1,000 ML IV SCH ×3 (03:18→11:53)
[2019-06-13] MEDS: Levothyroxine Sodium 50 MCG TAB PO SCH (06:16)
--- NOTE | 2019-06-13 09:19 | PDOC.PN ---
- Subjective Encounter Start Date: 06/13/19 Encounter Start Time: 09:13 Subjective: more alert - Objective Resuscitation Status - Order Detail: 06/11/19 15:27 Resuscitation Status Routine Resuscitation Status: FULL: Full Resuscitation MAR Reviewed: Yes Vital Signs & Weight: Vital Signs (12 hours) Temp Pulse Resp BP Pulse Ox 06/13/19 08:00 102.9 F H 98 20 122/83 87 L 06/13/19 04:00 99.3 F 84 20 141/80 H 92 L 06/13/19 00:00 98.0 F 76 20 147/94 H 96 Weight Admit Weight 262 lb 9.6 oz Weight 262 lb 9.6 oz I&O: 06/12/19 06/13/19 06/14/19 06:59 06:59 06:59 Intake Total 1100 2158 Output Total 1050 875 Balance 50 1283 Result Diagrams: 06/11/19 11:35 06/12/19 04:17 Phys Exam - Physical Examination Neck: no JVD scattered rhonchi Cardiovascular: RRR, no significant murmur Gastrointestinal: soft, positive bowel sounds Musculoskeletal: edema present Dx/Plan (1) MARBIN (acute kidney injury) Code(s): N17.9 - ACUTE KIDNEY FAILURE, UNSPECIFIED Status: Acute Comment: resolving (2) Rhabdomyolysis Code(s): M62.82 - RHABDOMYOLYSIS Status: Acute Qualifiers: Rhabdomyolysis type: traumatic Encounter type: initial encounter Qualified Code(s): T79.6XXA - Traumatic ischemia of muscle, initial encounter (3) Seizure Code(s): R56.9 - UNSPECIFIED CONVULSIONS Status: Acute Comment: causing encephalopathy (4) Warfarin anticoagulation Code(s): Z79.01 - 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 OF 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 Status: Chronic (5) Wound dehiscence Status: Acute Qualifiers: Encounter type: initial encounter Qualified Code(s): T81.31XA - Disruption of external operation (surgical) wound, not elsewhere classified, initial encounter Comment: at site of loop recorder placement (6) Dyslipidemia Code(s): E78.5 - HYPERLIPIDEMIA, UNSPECIFIED Status: Chronic (7) Hypothyroidism Code(s): E03.9 - HYPOTHYROIDISM, UNSPECIFIED Status: Chronic Qualifiers: Hypothyroidism type: unspecified Qualified Code(s): E03.9 - Hypothyroidism , unspecified (8) Seizure disorder Code(s): G40.909 - EPILEPSY, UNSP, NOT INTRACTABLE, WITHOUT STATUS EPILEPTICUS Status: Chronic (9) Acute encephalopathy Code(s): G93.40 - ENCEPHALOPATHY, UNSPECIFIED Status: Acute - Plan rpt Ck, BMP- cont iv fluids -: CXR, blood, urine C&S * .
--- NOTE | 2019-06-13 09:40 | RAD ---
XR Chest 1 View Portable HISTORY: Shortness of breath and fever COMPARISON: 06/11/2019 study. FINDINGS: Heart size appears enlarged. Electronic device is again noted over the left chest. There is been development of opacification in the left base with obscuration of left hemidiaphragm. This is new as compared to the prior exam. IMPRESSION: Retrocardiac infiltrate. Some of these changes could be related to pleural effusion.
[2019-06-13] MEDS: Acetaminophen 325 MG TAB PO PRN ×2 (09:52→16:02)
[2019-06-13] MEDS: Gabapentin 300 MG CAP PO SCH ×3 (09:52→20:19)
[2019-06-13] MEDS: Topiramate 100 MG TAB PO SCH ×2 (09:52→20:18)
[2019-06-13] MEDS: Amiodarone 200 MG TAB PO SCH ×2 (09:52→20:21)
[2019-06-13] MEDS: Metoprolol Tartrate 25 MG TAB PO SCH ×2 (09:53→20:20)
[2019-06-13] MEDS: Topiramate 25 MG TAB PO SCH ×2 (09:56→20:21)
[2019-06-13] MEDS: Famotidine/PF 20 mg/2ml Vial SLOW IVP SCH ×2 (10:09→20:20)
[2019-06-13 10:24] LABS: Anion Gap 12 mmol/L (10-20); BUN (Urea Nitrogen) 40 mg/dL (8.4-25.7); CK (CPK) 1512 U/L (30-200); Calc. Creatinine Clearance 101 mL/min (70-130); Carbon Dioxide 21 mmol/L (23-31); Chloride 118 mmol/L (98-107); Estimated GFR-MDRD 58; Glucose 93 mg/dL (80-115); Potassium 3.6 mmol/L (3.5-5.1); Sodium 147 mmol/L (136-145)
[2019-06-13] MEDS: Morphine 2 MG/ML SYRINGE SLOW IVP PRN (11:52)
--- NOTE | 2019-06-13 16:18 | PDOC.EVN ---
Event Note - Event Note Event Note: CXR- LLL infiltrate. start rocephine and zithromax
[2019-06-13] MEDS: cefTRIAXone\\ROCEPHIN 2 GM in Sodium Chloride 0.9% 100 ML IVPB SCH (17:35)
[2019-06-13] MEDS: Azithromycin 500 MG in Sodium Chloride 0.9% 250 ML 250 ML IVPB SCH (18:23)
[2019-06-13] MEDS: Warfarin Sodium 1.25 MG HALF.TAB PO SCH (18:23)
[2019-06-13] MEDS: Atorvastatin Calcium 10 MG TAB PO SCH (20:21)
--- NOTE | 2019-06-13 21:32 | CON ---
DATE OF CONSULTATION: 06/13/2019 CONSULTING PHYSICIAN: Hospitalist Services. IMPRESSION: 1. Seizure disorder. 2. Rhabdomyolysis. 3. Continued altered mental status, possibly secondary to new onset of pneumonia versus subclinical seizures. PLAN: 1. Continue anticonvulsant therapy. 2. EEG. 3. Continue supportive measures. HISTORY OF PRESENT ILLNESS: Mr. Thomason is a 63-year-old man with a known history of epilepsy. He was found down in his apartment and transferred here. He had a CPK of over 6000. His BUN was significantly elevated as well as his creatinine consistent with dehydration. He was started on IV fluids. Since admission, he has been a bit lethargic. He was more awake last night according to the family. He was conversant and answering questions. He spiked a fever earlier today. He has become much more lethargic. They report that he can take several days to recover from his postictal state. He is reportedly hypersensitive to touch in his postictal state. PAST MEDICAL HISTORY: Hypertension, seizures. ALLERGIES: ASPIRIN. SOCIAL HISTORY: Unremarkable. FAMILY HISTORY: Unremarkable. REVIEW OF SYSTEMS: Not obtainable due to his mental state. PHYSICAL EXAMINATION: GENERAL: He is a well-nourished, middle-aged man, lying in bed, in no apparent distress. VITAL SIGNS: Had been stable, but other than an elevated temperature today. HEENT: Pupils equal, conjunctivae clear. He has head turn to the left. Attempting to rotate the head back to the right caused some wincing with pain, seemed to have some hypersensitivities, soft-tissue manipulation around the neck. EXTREMITIES: No cyanosis or edema. NEUROLOGIC: He would not awaken and follow commands. He is responsive to stimulation, but primarily displaying pain. His face appeared to be symmetric. He had symmetric tone in the extremities. There was some development of a rhythmic tremor-like movement in both of his hands. He also had some tremulous twitching of the lower lip. Plantar responses were equivocal. No abnormal movements in the legs were noted. SUMMARY: This is a middle-aged male with a history of epilepsy. He has been slow to awaken after an apparent seizure and secondary rhabdomyolysis. He now has pneumonia complicating the situation. I agree with management. I will check his EEG and give you further information when available. Job ID: [id number]
[2019-06-14] MEDS: Dextrose 5 %-0.45 % NaCl 1,000 ML IV SCH ×2 (04:12→09:37)
[2019-06-14 05:41] LABS: ALT (SGPT) 43 U/L (8-55); AST (SGOT) 60 U/L (5-34); Albumin 2.7 g/dL (3.4-4.8); Alkaline Phosphatase 53 U/L (40-150); Anion Gap 11 mmol/L (10-20); BUN (Urea Nitrogen) 40 mg/dL (8.4-25.7); CK (CPK) 891 U/L (30-200); Calc. Creatinine Clearance 90 mL/min (70-130); Carbon Dioxide 22 mmol/L (23-31); Chloride 119 mmol/L (98-107); Estimated GFR-MDRD 51; Globulin 3.6 g/dL (2.4-3.5); Glucose 95 mg/dL (80-115); Potassium 3.8 mmol/L (3.5-5.1); Protein, Total 6.3 g/dL (5.8-8.1); Sodium 148 mmol/L (136-145)
[2019-06-14 05:50] LABS: Hemoglobin 12.9 g/dL (14.0-18.0); Mean Corpuscular HGB CONC 29.6 g/dL (32.0-36.0); Mean Corpuscular Hemoglobin 30.1 pg (27.0-31.0); Mean Platelet Volume 9.7 fL (7.4-10.4); Platelet Count 155 thou/uL (130-400); RBC Distribution Width 15.1 % (11.5-14.5); Red Blood Cell (RBC) Count 4.28 mill/uL (4.70-6.10); White Blood Cell (WBC) Count 8.6 thou/uL (4.8-10.8)
[2019-06-14 05:51] LABS: Band 33 % (5-11); Hypochromia SLIGHT = 6-15 cells (100X) (0-5/hpf); Lymphocytes 26 % (21-51); MDiff Complete? YES; Monocytes 19 % (0-10); Neutrophil 22 % (42-75); Platelet Morphology Comment Appears Adequate
[2019-06-14] MEDS: Levothyroxine Sodium 50 MCG TAB PO SCH (05:53)
--- NOTE | 2019-06-14 08:52 | PDOC.PN ---
- Subjective Encounter Start Date: 06/14/19 Encounter Start Time: 08:51 Subjective: somewhat more alert - Objective Resuscitation Status - Order Detail: 06/11/19 15:27 Resuscitation Status Routine Resuscitation Status: FULL: Full Resuscitation MAR Reviewed: Yes Vital Signs & Weight: Vital Signs (12 hours) Temp Pulse Resp BP Pulse Ox 06/14/19 07:49 98.7 F 77 24 H 109/77 92 L 06/14/19 04:40 99.2 F 06/14/19 04:00 100.0 F H 74 22 H 102/77 91 L 06/13/19 22:00 99.8 F H 73 20 106/70 93 L 06/13/19 21:42 97.8 F Weight Admit Weight 262 lb 9.6 oz Weight 262 lb 9.6 oz I&O: 06/13/19 06/14/19 06/15/19 06:59 06:59 06:59 Intake Total 2158 2440 Output Total 875 1600 Balance 1283 840 Result Diagrams: 06/14/19 04:57 06/14/19 04:57 Phys Exam - Physical Examination Neck: no JVD rales/rhonchi LLL Cardiovascular: RRR, no significant murmur Gastrointestinal: soft, positive bowel sounds Musculoskeletal: no edema Dx/Plan (1) Hypernatremia Code(s): E87.0 - HYPEROSMOLALITY AND HYPERNATREMIA Status: Acute (2) PNA (pneumonia) Code(s): J18.9 - PNEUMONIA, UNSPECIFIED ORGANISM Status: Acute Qualifiers: Pneumonia type: due to Pneumococcus Laterality: left Lung location: lower lobe of lung Qualified Code(s): J13 - Pneumonia due to Streptococcus pneumoniae (3) MARBIN (acute kidney injury) Code(s): N17.9 - ACUTE KIDNEY FAILURE, UNSPECIFIED Status: Acute Comment: resolving (4) Rhabdomyolysis Code(s): M62.82 - RHABDOMYOLYSIS Status: Acute Qualifiers: Rhabdomyolysis type: traumatic Encounter type: initial encounter Qualified Code(s): T79.6XXA - Traumatic ischemia of muscle, initial encounter (5) Seizure Code(s): R56.9 - UNSPECIFIED CONVULSIONS Status: Acute Comment: causing encephalopathy (6) Warfarin anticoagulation Code(s): Z79.01 - [employer]NAGER [employer] (CURRENT) USE OF 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 Status: Chronic (7) Wound dehiscence Status: Acute Qualifiers: Encounter type: initial encounter Qualified Code(s): T81.31XA - Disruption of external operation (surgical) wound, not elsewhere classified, initial encounter Comment: at site of loop recorder placement (8) Dyslipidemia Code(s): E78.5 - HYPERLIPIDEMIA, UNSPECIFIED Status: Chronic (9) Hypothyroidism Code(s): E03.9 - HYPOTHYROIDISM, UNSPECIFIED Status: Chronic Qualifiers: Hypothyroidism type: unspecified Qualified Code(s): E03.9 - Hypothyroidism , unspecified (10) Seizure disorder Code(s): G40.909 - EPILEPSY, UNSP, NOT INTRACTABLE, WITHOUT STATUS EPILEPTICUS Status: Chronic (11) Acute encephalopathy Code(s): G93.40 - ENCEPHALOPATHY, UNSPECIFIED Status: Acute - Plan blood C&S pending, cont iv antibx -: rpt speech tx eval -: D5W iv fluids- monitor BMP -: Ck level decreased -: cont anti epileptic meds * .
[2019-06-14 10:12] LABS: INR-International Normal Ratio 1.8; Prothrombin Time 20.8 SEC (12.0-14.7)
[2019-06-14] MEDS: Famotidine/PF 20 mg/2ml Vial SLOW IVP SCH ×2 (10:30→20:55)
[2019-06-14] MEDS: Dextrose 5% in Water 1,000 ML IV SCH ×2 (11:18→21:09)
[2019-06-14] MEDS: Topiramate 100 MG TAB PO SCH ×2 (11:57→20:55)
[2019-06-14] MEDS: Metoprolol Tartrate 25 MG TAB PO SCH ×2 (11:57→20:55)
[2019-06-14] MEDS: Amiodarone 200 MG TAB PO SCH ×2 (11:57→20:56)
[2019-06-14] MEDS: Topiramate 25 MG TAB PO SCH ×2 (11:58→21:13)
[2019-06-14] MEDS: Gabapentin 300 MG CAP PO SCH ×3 (11:58→20:55)
[2019-06-14] MEDS: Warfarin Sodium 1.25 MG HALF.TAB PO SCH (16:36)
[2019-06-14] MEDS: cefTRIAXone\\ROCEPHIN 2 GM in Sodium Chloride 0.9% 100 ML IVPB SCH (16:36)
[2019-06-14] MEDS: Azithromycin 500 MG in Sodium Chloride 0.9% 250 ML 250 ML IVPB SCH (17:20)
[2019-06-14] MEDS: Atorvastatin Calcium 10 MG TAB PO SCH (20:56)
[2019-06-15] MEDS: Dextrose 5% in Water 1,000 ML IV SCH ×3 (04:23→23:45)
[2019-06-15] MEDS: Levothyroxine Sodium 50 MCG TAB PO SCH (05:29)
[2019-06-15 05:51] LABS: INR-International Normal Ratio 1.9
[2019-06-15] MEDS: Metoprolol Tartrate 25 MG TAB PO SCH ×2 (08:21→22:03)
[2019-06-15] MEDS: Amiodarone 200 MG TAB PO SCH ×2 (08:21→22:03)
[2019-06-15] MEDS: Gabapentin 300 MG CAP PO SCH ×3 (08:21→22:04)
[2019-06-15] MEDS: Topiramate 100 MG TAB PO SCH ×2 (08:22→22:03)
[2019-06-15] MEDS: Famotidine/PF 20 mg/2ml Vial SLOW IVP SCH ×2 (08:24→22:04)
[2019-06-15] MEDS: Topiramate 25 MG TAB PO SCH ×2 (08:42→22:03)
--- NOTE | 2019-06-15 09:00 | EEG ---
Referring Physician: Goldy BAH EEG # [id number] TEST TYPE: PORTABLE INPATIENT REPORT: AN EEG USING THE INTERNATIONAL TEN-TWENTY SYSTEM OF ELECTRODE PLACEMENT WAS PERFORMED. The best waking background is a 6-7 hertz Theta frequency which appears symmetric over both hemispheres. No epileptiform features were present. The patient appeared to be awake through the study. Photic stimulation was unremarkable. IMPRESSION: THIS IS AN ABNORMAL STUDY FOR THE FINDINGS OF SOME DIFFUSE SLOWING OF A NONSPECIFIC NATURE. CLINICAL CORRELATION IS INDICATED. Runstitching Machine Operator: NEY Security Attendant: [email or web address] JUÁREZ
[2019-06-15 09:40] LABS: Anion Gap 11 mmol/L (10-20); BUN (Urea Nitrogen) 30 mg/dL (8.4-25.7); CK (CPK) 461 U/L (30-200); Calc. Creatinine Clearance 128 mL/min (70-130); Calcium 8.6 mg/dL (7.8-10.44); Carbon Dioxide 19 mmol/L (23-31); Chloride 115 mmol/L (98-107); Estimated GFR-MDRD 77; Glucose 93 mg/dL (80-115); Potassium 3.6 mmol/L (3.5-5.1); Sodium 141 mmol/L (136-145)
--- NOTE | 2019-06-15 10:19 | PDOC.PN ---
- Subjective Encounter Start Date: 06/15/19 Encounter Start Time: 10:14 Subjective: alert - Objective Resuscitation Status - Order Detail: 06/11/19 15:27 Resuscitation Status Routine Resuscitation Status: FULL: Full Resuscitation MAR Reviewed: Yes Vital Signs & Weight: Vital Signs (12 hours) Temp Pulse Resp BP Pulse Ox 06/15/19 07:40 98.3 F 59 L 18 106/65 94 L 06/15/19 04:00 97.9 F 62 19 105/68 96 06/15/19 00:00 98.3 F 62 20 110/70 96 Weight Admit Weight 262 lb 9.6 oz Weight 262 lb 9.6 oz I&O: 06/14/19 06/15/19 06/16/19 06:59 06:59 06:59 Intake Total 2440 Output Total 1600 350 Balance 840 -350 Result Diagrams: 06/14/19 04:57 06/15/19 09:02 Phys Exam - Physical Examination Neck: no JVD Respiratory: clear to auscultation bilateral Cardiovascular: RRR, no significant murmur Gastrointestinal: soft, positive bowel sounds Musculoskeletal: no edema Dx/Plan (1) Hypernatremia Code(s): E87.0 - HYPEROSMOLALITY AND HYPERNATREMIA Status: Resolved (2) PNA (pneumonia) Code(s): J18.9 - PNEUMONIA, UNSPECIFIED ORGANISM Status: Acute Qualifiers: Pneumonia type: due to Pneumococcus Laterality: left Lung location: lower lobe of lung Qualified Code(s): J13 - Pneumonia due to Streptococcus pneumoniae (3) MARBIN (acute kidney injury) Code(s): N17.9 - ACUTE KIDNEY FAILURE, UNSPECIFIED Status: Resolved Comment : resolving (4) Rhabdomyolysis Code(s): M62.82 - RHABDOMYOLYSIS Status: Acute Qualifiers: Rhabdomyolysis type: traumatic Encounter type: initial encounter Qualified Code(s): T79.6XXA - Traumatic ischemia of muscle, initial encounter (5) Seizure Code(s): R56.9 - UNSPECIFIED CONVULSIONS Status: Acute Comment: causing encephalopathy (6) Warfarin anticoagulation Code(s): Z79.01 - DETENTION (CURRENT) USE OF 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 Status: Chronic (7) Wound dehiscence Status: Acute Qualifiers: Encounter type: initial encounter Qualified Code(s): T81.31XA - Disruption of external operation (surgical) wound, not elsewhere classified, initial encounter Comment: at site of loop recorder placement (8) Dyslipidemia Code(s): E78.5 - HYPERLIPIDEMIA, UNSPECIFIED Status: Chronic (9) Hypothyroidism Code(s): E03.9 - HYPOTHYROIDISM, UNSPECIFIED Status: Chronic Qualifiers: Hypothyroidism type: unspecified Qualified Code(s): E03.9 - Hypothyroidism , unspecified (10) Seizure disorder Code(s): G40.909 - EPILEPSY, UNSP, NOT INTRACTABLE, WITHOUT STATUS EPILEPTICUS Status: Chronic (11) Acute encephalopathy Code(s): G93.40 - ENCEPHALOPATHY, UNSPECIFIED Status: Acute (12) Bacteremia due to Gram-positive bacteria Code(s): R78.81 - BACTEREMIA Status: Acute - Plan 2/2 blood C&S coag neg staph -: DC rocephin, start ancef -: echocardigram for poss endocarditis -: cont routine meds * .
[2019-06-15] MEDS: CEFAZOLIN 2 GM in Premix Bag 1 BAG IVPB SCH ×2 (13:23→22:07)
[2019-06-15] MEDS ORDERED: CEFAZOLIN 2 GM in Premix Bag 1 BAG IVPB SCH (14:00)
[2019-06-15] MEDS: Warfarin Sodium 1.25 MG HALF.TAB PO SCH (16:06)
[2019-06-15] MEDS: Azithromycin 500 MG in Sodium Chloride 0.9% 250 ML 250 ML IVPB SCH (18:10)
[2019-06-15] MEDS: Morphine 2 MG/ML SYRINGE SLOW IVP PRN (22:00)
[2019-06-15] MEDS: Acetaminophen 325 MG TAB PO PRN (22:04)
[2019-06-15] MEDS: Atorvastatin Calcium 10 MG TAB PO SCH (22:04)
[2019-06-16] MEDS: Morphine 2 MG/ML SYRINGE SLOW IVP PRN ×3 (04:55→21:15)
[2019-06-16] MEDS: CEFAZOLIN 2 GM in Premix Bag 1 BAG IVPB SCH (04:57)
[2019-06-16] MEDS: Levothyroxine Sodium 50 MCG TAB PO SCH (04:58)
[2019-06-16 05:50] LABS: INR-International Normal Ratio 2.1; Prothrombin Time 23.1 SEC (12.0-14.7)
[2019-06-16] MEDS: Gabapentin 300 MG CAP PO SCH ×3 (08:23→21:18)
[2019-06-16] MEDS: Metoprolol Tartrate 25 MG TAB PO SCH ×2 (08:24→21:17)
[2019-06-16] MEDS: Amiodarone 200 MG TAB PO SCH ×2 (08:24→21:18)
[2019-06-16] MEDS: Topiramate 25 MG TAB PO SCH ×2 (08:25→21:18)
[2019-06-16] MEDS: Topiramate 100 MG TAB PO SCH ×2 (08:25→21:18)
[2019-06-16] MEDS: Famotidine/PF 20 mg/2ml Vial SLOW IVP SCH ×2 (08:26→21:19)
[2019-06-16] MEDS: Dextrose 5% in Water 1,000 ML IV SCH ×2 (08:38→16:34)
[2019-06-16] MEDS: CEFAZOLIN 2 GM in Sodium Chloride 0.9% 100 ML IVPB SCH ×2 (14:06→21:20)
[2019-06-16] MEDS: Warfarin Sodium 2.5 MG TAB PO SCH (15:54)
[2019-06-16] MEDS ORDERED: Acetaminophen 650 MG/20.3 ML UDCUP PO PRN (16:18)
[2019-06-16] MEDS: Folic Acid 1 MG TAB PO SCH (17:35)
[2019-06-16] MEDS: Azithromycin 500 MG in Sodium Chloride 0.9% 250 ML 250 ML IVPB SCH (17:35)
--- NOTE | 2019-06-16 17:59 | PRG ---
DATE OF SERVICE: 06/16/2019 SUBJECTIVE: A 64-year-old male with seizure disorder; atrial fibrillation, on anticoagulation; hypertension; and dyslipidemia, was brought in on 06/11/2019 with unresponsiveness. He was last seen normal 5 days prior to admission. He currently lives alone at home. His workup was consistent with acute kidney injury along with rhabdomyolysis, encephalopathy along with deconditioning. He was evaluated by Dr. Baldwin, and was advised to continue anticonvulsant therapy. He underwent EEG yesterday, that was nonspecific. The patient developed urinary retention, for which a Olguin catheter has been placed. He has also currently been followed by Wound Care for decubitus ulcer present on admission. His blood culture also came back positive for Staphylococcus. He is also on antibiotics for pneumonia. REVIEW OF SYSTEMS: The patient denies any nausea, vomiting, abdominal pain, fever, or chills. OBJECTIVE: VITAL SIGNS: Temperature 99.3, pulse rate of 60, respirations 20, blood pressure 112/63, and O2 saturation of 92% on 2L nasal cannula. GENERAL: A 64-year-old male with increased somnolence. The patient opens eyes to verbal command. Appears comfortable. LUNGS: Diminished air entry at bilateral bases with scattered rales. HEART: S1 and S2 present. Regular rate and rhythm. ABDOMEN: Distended. Bowel sounds present. No rebound or guarding. EXTREMITIES: No calf tenderness. NEUROLOGIC: No new focal deficit. LABORATORY FINDINGS: INR today is 2.1. No other labs today. CK yesterday was 461. Blood culture 2/2 is positive for Staphylococcus. Urine culture showed 10,000 to 25,000 Enterococcus as well as less than 5000 gram-negative rods. IMAGING STUDIES: 1. Chest x-ray 3 days ago showed left-sided infiltrate. 2. Renal ultrasound was negative for obstructive uropathy. 3. CT scan of the brain was negative. 4. Humerus and shoulder x-rays were negative. 5. Pelvic x-rays were negative for fractures. IMPRESSION: 1. Toxic metabolic encephalopathy secondary to seizure. 2. Acute kidney injury on chronic kidney disease, stage 2. Creatinine on admission was 1.86. 3. Dehydration with hypernatremia. 4. Abnormal liver function tests, probably secondary to dehydration. 5. Elevated troponin secondary to demand ischemia/type 2 myocardial infarction. 6. Rhabdomyolysis. 7. Metabolic acidosis. 8. Chronic anticoagulation for atrial fibrillation. 9. Hypertension. 10. Dyslipidemia. 11. Hypothyroidism. 12. Gastroesophageal reflux disease. 13. History of vitamin B12 deficiency. 14. Physical deconditioning. 15. Two of two Staphylococcus bacteremia. 16. Left-sided pneumonia, suspected aspiration. 17. History of seizure disorder. 18. Urinary retention. 19. Decubitus ulcer, present on admission. Please refer to Wound Care note. 20. Obesity with a BMI of 32. PLAN: The patient will continue to be monitored in the stroke unit. We will continue azithromycin with Ancef. Infectious Disease will be consulted. We will reduce IV fluid to 70 mL/h. Continue Keppra. We will change Pepcid to p.o. We will recheck chest x-ray in a.m. The patient has not had a bowel movement for the last 5 days. We will get a KUB. We will add MiraLAX along with Senokot-S. Continue Topamax along with gabapentin. Continue physical therapy, occupational Therapy, and speech therapy evaluation. We will consult residential case manager for halfway facility versus rehab. We will repeat labs in a.m. Recheck PT/INR in a.m. Check CK in a.m. Plan was discussed with the patient's brother at the bedside. Job ID: [id number]
[2019-06-16] MEDS ORDERED: Polyethylene Glycol 3350 17 GM Packet PO SCH (21:00)
[2019-06-16] MEDS: Atorvastatin Calcium 10 MG TAB PO SCH (21:16)
[2019-06-16] MEDS: Senokot S 8.6-50 MG TAB PO SCH (21:17)
[2019-06-17 03:06] LABS: #Basophils 0.1 thou/uL (0.0-0.2); #Eosinphils 0.3 thou/uL (0.0-0.7); #Lymphocytes 1.5 thou/uL (1.20-3.40); #Monocytes 1.4 thou/uL (0.11-0.59); #Neutrophils 7.5 thou/uL (1.40-6.50); %Basophils 0.9 % (0.0-1.0); %Eosinophils 2.3 % (0.0-10.0); %Lymphocytes 14.2 % (21.0-51.0); %Neutrophils 69.6 % (42.0-75.0); Hemoglobin 11.6 g/dL (14.0-18.0); Mean Corpuscular HGB CONC 31.7 g/dL (32.0-36.0); Mean Corpuscular Hemoglobin 31.2 pg (27.0-31.0); Mean Corpuscular Volume 98.3 fL (78.0-98.0); Mean Platelet Volume 9.1 fL (7.4-10.4); Platelet Count 187 thou/uL (130-400); RBC Distribution Width 14.6 % (11.5-14.5); Red Blood Cell (RBC) Count 3.72 mill/uL (4.70-6.10); White Blood Cell (WBC) Count 10.8 thou/uL (4.8-10.8)
[2019-06-17 03:17] LABS: INR-International Normal Ratio 2.3; Prothrombin Time 25.5 SEC (12.0-14.7)
--- NOTE | 2019-06-17 03:19 | PDOC.EVN ---
Event Note - Event Note Event Note: Patient's nurse called to say that patient's O2 requirement increasing to 4.5 L. Will order breathing treatment, chest X ray, and BNP. Patient does not appear to be in any distress.
[2019-06-17 03:26] LABS: Actual Bicarbonate (HCO3a) 18.2 mEq/L (22-28); Analyzer IN Cardio OR; Base Excess (BEa) -5.4 mEq/L (-2.0 to +3.0); CO2 Tension 29.6 mmHg (35.0-45.0); Calcium, Ionized 1.15 mmol/L (1.12-1.30); Carboxyhemoglobin (COHb) 0.7 gm% (0.0-3.0); Hemoglobin (Hb) 11.9 g/dL (14.0-18.0); O2 Tension (PaO2) 69.9 mmHg (> 80.0); Potassium - ABG Lab 3.29 mmol/L (3.70-5.30); Puncture Site R RADIAL; pH, Arterial 7.41 (7.35-7.45)
[2019-06-17 03:43] LABS: ALT (SGPT) 47 U/L (8-55); AST (SGOT) 62 U/L (5-34); Albumin 2.6 g/dL (3.4-4.8); Alkaline Phosphatase 136 U/L (40-150); Anion Gap 9 mmol/L (10-20); BUN (Urea Nitrogen) 16 mg/dL (8.4-25.7); Bilirubin, Total 0.9 mg/dL (0.2-1.2); CK (CPK) 235 U/L (30-200); Calc. Creatinine Clearance 137 mL/min (70-130); Calcium 8.6 mg/dL (7.8-10.44); Carbon Dioxide 20 mmol/L (23-31); Chloride 110 mmol/L (98-107); Estimated GFR-MDRD 83; Globulin 3.5 g/dL (2.4-3.5); Glucose 98 mg/dL (80-115); Magnesium 1.7 mg/dL (1.6-2.6); Phosphorus 3.4 mg/dL (2.3-4.7); Potassium 3.3 mmol/L (3.5-5.1); Protein, Total 6.1 g/dL (5.8-8.1); Sodium 136 mmol/L (136-145)
[2019-06-17] MEDS: Famotidine 20 MG TAB PO SCH ×2 (05:55→09:30)
[2019-06-17] MEDS: Dextrose 5% in Water 1,000 ML IV SCH ×2 (07:13→09:29)
[2019-06-17] MEDS: Levothyroxine Sodium 50 MCG TAB PO SCH (07:13)
[2019-06-17] MEDS: CEFAZOLIN 2 GM in Sodium Chloride 0.9% 100 ML IVPB SCH ×3 (07:14→21:42)
[2019-06-17] MEDS ORDERED: Polyethylene Glycol 3350 17 GM Packet PO SCH (09:00)
[2019-06-17] MEDS: Gabapentin 300 MG CAP PO SCH ×3 (09:29→21:41)
[2019-06-17] MEDS: Senokot S 8.6-50 MG TAB PO SCH ×2 (09:29→21:42)
[2019-06-17] MEDS: Topiramate 100 MG TAB PO SCH ×2 (09:29→21:42)
[2019-06-17] MEDS: Saccharomyces boulardii 250 MG CAP PO SCH (09:30)
[2019-06-17] MEDS: Cyanocobalamin (Vitamin B-12) 1,000 MCG TAB PO SCH (09:30)
[2019-06-17] MEDS: Metoprolol Tartrate 25 MG TAB PO SCH ×2 (09:30→21:41)
[2019-06-17] MEDS: Topiramate 25 MG TAB PO SCH ×2 (09:31→21:42)
[2019-06-17] MEDS: Famotidine/PF 20 mg/2ml Vial SLOW IVP SCH (09:31)
[2019-06-17] MEDS: Amiodarone 200 MG TAB PO SCH ×2 (09:31→21:42)
--- NOTE | 2019-06-17 10:51 | RAD ---
PORTABLE CHEST: HISTORY: Pneumonia. COMPARISON: 06/13/2019 study. FINDINGS: The heart size appears slightly enlarged. The patient is obliqued on this examination. There is lorenzo e linear parenchymal change in the right base suggestive of atelectasis. Still persistent increased retrocardiac density similar to the previous exam. IMPRESSION: Cardiomegaly with bibasilar lung changes and also possible pleural changes in the left base. Finding s appear essentially stable. POS: ASAD
[2019-06-17] MEDS: Morphine 2 MG/ML SYRINGE SLOW IVP PRN ×2 (11:13→22:44)
--- NOTE | 2019-06-17 12:02 | RAD ---
XR Abdomen 2 View/1 View Cxr HISTORY: Shortness of breath abdominal pain. COMPARISON: Earlier exam done today. FINDINGS: Heart size is slightly enlarged, the bibasilar lung changes appear improved as compared to the prior exam. No signs of failure. KUB and left lateral decubitus views of abdomen: There is mild gaseous distention of the colon. No fr ee air. No radiopaque calculi. There are arthritic changes of the spine. IMPRESSION: Improvement in the bibasilar atelectasis. No signs of obstruction.
--- NOTE | 2019-06-17 13:16 | EKG ---
Test Reason : Blood Pressure : / mmHG Vent. Rate : 099 BPM Atrial Rate : 099 BPM P-R Int : 222 ms QRS Dur : 110 ms QT Int : 364 ms P-R-T Axes : 057 -11 049 degrees QTc Int : 467 ms Sinus rhythm with 1st degree A-V block with Premature atrial complexes with Abberant conduction Possible Inferior infarct , age undetermined Abnormal ECG Confirmed by NELL LAND MD ([id number]), video editor ALICJA ABREU ([id number]) on 06/17/2019 1:16:14 PM Referred By: Confirmed By:NELL ALND MD
[2019-06-17] MEDS ORDERED: Acetaminophen 325 MG TAB PO PRN (15:45)
--- NOTE | 2019-06-17 16:56 | CON ---
DATE OF CONSULTATION: 06/17/2019 REASON FOR CONSULTATION: Bacteremia. HISTORY OF PRESENT ILLNESS: A 64-year-old with history of seizure disorder since childhood; atrial fibrillation, on warfarin; and hypertension, who was found in his house on the floor awake, but unable to prop himself up. Presumably, he had been there for at least 48 hours and this patient was brought by EMS after relatives found him in that situation. He lives by himself and usually takes a number of medications on a regular schedule with alarm prompters to increase the likelihood of compliance. On arrival, his BP was 170/95, pulse 85, respirations 18, temperature 98.2, and O2 saturation 95%. He was drowsy and would respond to light touch. The lung exam and heart examination were normal. The abdomen was not particularly tender. The white cell count 10.1. Platelets were normal. Creatinine 1.86 and bilirubin 1.5. The CK was elevated at 6300 and lipase 142. Urine drug screen was negative. The patient had a CT of brain, which showed no abnormalities other than atrophy. C-spine and chest x-ray without acute process. Impression was rhabdomyolysis, possible seizure, and acute kidney injury. He was admitted to telemetry and given IV fluids. Now, we have 2 sets of blood cultures which were Staphylococcus coagulase negative and we were asked to evaluate this finding. The patient does not appear in distress. He is awake. He denies headaches. No shortness of breath. No neck pain. No back pain. No abdominal pain. He is urinating with an indwelling Olguin catheter, which was inserted upon admission. He has been noticed by family members that he tends to veer to the left side. At home, he is able to ambulate with assistance of a walker and is fairly independent except for shopping, where he needs the family members to perform shopping groceries for him. 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 SOCIAL HISTORY: Lives by himself. Fairly independent. FAMILY HISTORY: Noncontributory. ALLERGIES: NONE. CURRENT MEDICATIONS: 1. Tylenol. 2. DuoNeb. 3. Cordarone. 4. Lipitor. 5. Azithromycin. 6. Cefazolin. 7. Dextrose. 8. Pepcid. 9. Folvite. 10. Neurontin. 11. Levothyroxine. 12. Lorazepam. 13. Ondansetron. 14. Florastor. 15. Senokot. 16. Warfarin. PHYSICAL EXAMINATION: VITAL SIGNS: T-max 102.2 to 102.9. He has been afebrile since after admission. BP 120/70, pulse 79, respirations 18, and O2 saturation 92%. SKIN: A few areas of bruising in the presacral gluteal region from the fall and pressure damage. Blistering with some areas of what appears to be superficial skin necrosis in the back area and the right hip. No lymphadenopathy. Peripheral IV access. Olguin catheter. HEENT: Ocular movements have a tendency to deviate to the left side, but he is able to establish eye contact intermittently. His head position tends to veer to the left, and he seems to have pain when I try to bring his head towards the right side. The nasal passages are patent. Ear exam normal. Oral cavity with very few remaining teeth. NECK: Stiff to all directions. LUNGS: Symmetric with clear breath sounds. HEART: S1 and S2. Irregular rate. ABDOMEN: Soft. Not distended or tender. No ascites. No bladder distention. EXTREMITIES: He is diffusely weak. There is no edema in the lower extremities. His pulses are 1+ in dorsalis pedis. Plantar responses are flexor. No clonus. NEUROLOGIC: He is awake. He will establish eye contact, but has some element of dysarthria. Sluggish reply to questions. LABORATORY DATA: White cell count was 10.1 and now 10.8, hemoglobin 11.6, MCV 98, platelets 187 with 69% neutrophils and 14% lymphocytes. INR 2.3. A pH 7.41, pCO2 29, and pO2 69. Sodium was 148, now 136 and creatinine was 1.28, is now down to 0.92. Transaminases are coming down, probably those are related to the muscle damage. The CK is down to 235 and albumin is 2.6. Urinalysis with 0 to 3 wbc' s. Toxicology was negative. Microbiology with 2 sets with Staphylococcus epidermidis in one and the other was a coagulase-negative staphylococcus, not identified, but probably not Staphylococcus epidermidis. He also had Enterococcus faecalis and gram-negative randell, which probably reflects contamination or colonization rather than an invasive infection. ASSESSMENT AND PLAN: Epilepsy with likely recurrent seizure activity with rhabdomyolysis following the protracted stay in recumbent position and on the floor at his home until he was found by relatives. The organisms retrieved from the blood cultures are unlikely to represent a true bacteremia. The specimen is logged as having been drawn at exactly the same time, so I doubt the technical quality of the sample. The urinary tract findings do not need treatment. At this point, we would recommend discontinuation of antimicrobial therapy. The wounds in the back need wound care only. There is one area of what appears to be superficial skin necrosis that will have to be continued to be followed to obtain an accurate staging. Job ID: [id number] [facility]
[2019-06-17] MEDS: Warfarin Sodium 1.25 MG HALF.TAB PO SCH (17:03)
[2019-06-17] MEDS: Folic Acid 1 MG TAB PO SCH (17:03)
--- NOTE | 2019-06-17 19:13 | PDOC.PN ---
- Subjective Encounter Start Date: 06/17/19 Encounter Start Time: 15:00 Patient seen and examined for AMS/Seizure/Pneumonia. No new seizure or focal deficits. No new complaints. Overnight events noted. - Objective Resuscitation Status - Order Detail: 06/11/19 15:27 Resuscitation Status Routine Resuscitation Status: FULL: Full Resuscitation MAR Reviewed: Yes Vital Signs & Weight: Vital Signs (12 hours) Temp Pulse Resp BP BP BP Pulse Ox 06/17/19 18:19 16 92 L 06/17/19 15:38 98.2 F 74 18 116/79 92 L 06/17/19 14:24 70 22 H 92 L 06/17/19 13:51 115/68 108/68 06/17/19 12:00 98.0 F 79 18 121/70 92 L 06/17/19 10:50 82 24 H 92 L 06/17/19 08:00 98.3 F 83 18 123/76 92 L Weight Admit Weight 262 lb 9.6 oz Weight 262 lb 9.6 oz I&O: 06/16/19 06/17/19 06/18/19 06:59 06:59 06:59 Intake Total 1250 500 Output Total 850 2150 750 Balance -850 -900 -250 Result Diagrams: 06/17/19 02:58 06/17/19 02:58 Radiology Reviewed by me: Yes (CXR - No new infiltrate) EKG Reviewed by me: Yes (Tele SR) Phys Exam - Physical Examination Constitutional: NAD Respiratory: no wheezing, no rhonchi Bibasilar rales Cardiovascular: RRR, no rub Gastrointestinal: soft, non-tender, positive bowel sounds Neurological: moves all 4 limbs Dx/Plan - Plan IMPRESSION: 1. Toxic metabolic encephalopathy secondary to seizure. 2. Acute kidney injury on chronic kidney disease, stage 2. 3. Dehydration with hypernatremia. 4. Abnormal liver function tests, probably secondary to dehydration. 5. Elevated troponin secondary to demand ischemia/type 2 myocardial infarction. 6. Rhabdomyolysis. 7. Metabolic acidosis. 8. Chronic anticoagulation for atrial fibrillation. 9. Hypertension. 10. Dyslipidemia. 11. Hypothyroidism. 12. Gastroesophageal reflux disease. 13. History of vitamin B12 deficiency. 14. Physical deconditioning. 15. 2/2 Staphylococcus bacteremia. 16. Left-sided pneumonia, suspected aspiration. 17. History of seizure disorder. 18. Urinary retention - Olguin placed this admission 19. Decubitus ulcer, present on admission. Please refer to Wound Care note. 20. Obesity with a BMI of 32. PLAN: Cont Keppra - change to PO Restart Depakote at low dose Reduce IVF to 50 ml/hr AM labs Cont Ancef Await ID input Treat constipation Continue Topamax along with gabapentin. Continue physical therapy, occupational Therapy, and speech therapy evaluation. DC in 1-2 days if stable Review of Systems - Review of Systems Respiratory: negative: Cough, Dry, Shortness of Breath, Hemoptysis, SOB with Excertion, Pleuritic Pain, Sputum, Wheezing Cardiovascular: negative: chest pain, palpitations, orthopnea, paroxysmal nocturnal dyspnea, edema, light headedness, other Gastrointestinal: negative: Nausea, Vomiting, Abdominal Pain, Diarrhea, Constipation, Melena, Hematochezia, Other - Medications/Allergies Allergies/Adverse Reactions: Allergies Allergy/AdvReac Type Severity Reaction Status Date / Time aspirin Allergy Verified 06/12/19 00:00 Medications: Current Medications Acetaminophen (Tylenol) 650 mg PO Q4H PRN PRN Reason: Headache/Fever or Mild Pain Albuterol/Ipratropium (Duoneb) 3 ml NEB [id number] [facility] Last Admin: 06/17/19 18:19 Dose: 3 ml Amiodarone HCl (Cordarone) 200 mg PO BID [facility] Last Admin: 06/17/19 09:31 Dose: 200 mg Atorvastatin Calcium (Lipitor) 10 mg PO HS [facility] Last Admin: 06/16/19 21:16 Dose: 10 mg Bisacodyl (Dulcolax) 10 mg PA DAILY [facility] Cyanocobalamin (Vitamin B-12) 1,000 mcg PO DAILY [facility] Last Admin: 06/17/19 09:30 Dose: 1,000 mcg Divalproex Sodium (Depakote) 250 mg PO BID [facility] Famotidine (Pepcid) 20 mg PO DAILY [facility] Folic Acid (Folvite) 1 mg PO Q24HR [facility] Last Admin: 06/17/19 17:03 Dose: 1 mg Gabapentin (Neurontin) 900 mg PO TID [facility] Last Admin: 06/17/19 15:09 Dose: 900 mg Hydralazine HCl (Apresoline) 10 mg SLOW IVP Q4H PRN PRN Reason: SBP Greater Than 180 Cefazolin Sodium 2 gm/ Sodium (Chloride) 100 mls @ 100 mls/hr IVPB Q8HR [facility] Last Admin: 06/17/19 13:30 Dose: 100 mls Dextrose/Water (D5w) 1,000 mls @ 50 mls/hr IV .Q20H [facility] Last Admin: 06/17/19 09:29 Dose: 1,000 mls Lactulose (Lactulose) 10 gm PO TID [facility] Levetiracetam (Keppra) 500 mg PO BID [facility] Levothyroxine Sodium (Synthroid) 50 mcg PO 0600 [facility] Last Admin: 06/17/19 07:13 Dose: 50 mcg Lorazepam (Ativan) 1 mg SLOW IVP Q1H PRN PRN Reason: Seizures Magnesium Hydroxide (Milk Of Magnesium) 30 ml PO HS [facility] Metoprolol Tartrate (Lopressor) 12.5 mg PO BID [facility] Last Admin: 06/17/19 09:30 Dose: 12.5 mg Miscellaneous Medication (Pharmacy To Dose) 1 each PO .WARFARIN [facility] Morphine Sulfate (Morphine) 2 mg SLOW IVP Q4H PRN PRN Reason: Moderate Pain (4-6) Last Admin: 06/17/19 11:13 Dose: 2 mg Ondansetron HCl (Zofran Odt) 4 mg PO Q6H PRN PRN Reason: Nausea/Vomiting Polyethylene Glycol (Miralax) 17 gm PO BID [facility] Saccharomyces Boulardii (Florastor) 250 mg PO DAILY [facility] Last Admin: 06/17/19 09:30 Dose: 250 mg Senna/Docusate Sodium (Senokot S) 2 tab PO BID [facility] Last Admin: 06/17/19 09:29 Dose: 2 tab Sodium Chloride (Flush - Normal Saline) 10 ml IVF Q12HR [facility] Last Admin: 06/17/19 09:31 Dose: 10 ml Sodium Chloride (Flush - Normal Saline) 10 ml IVF PRN PRN PRN Reason: Saline Flush Topiramate (Topamax) 100 mg PO BID [facility] Last Admin: 06/17/19 09:29 Dose: 100 mg Topiramate (Topamax) 25 mg PO BID [facility] Last Admin: 06/17/19 09:31 Dose: 25 mg Warfarin Sodium (Coumadin) 2.5 mg PO MoFr@1700 [facility] Last Admin: 06/16/19 15:54 Dose: 2.5 mg Warfarin Sodium (Coumadin) 1.25 mg PO Gelacio@1700 [facility] Last Admin: 06/17/19 17:03 Dose: 1.25 mg
[2019-06-17] MEDS ORDERED: Divalproex Sodium DR 500 MG TAB PO SCH (21:00)
[2019-06-17] MEDS: Atorvastatin Calcium 10 MG TAB PO SCH (21:41)
[2019-06-17] MEDS: levETIRAcetam 500 MG TAB PO SCH (21:41)
[2019-06-17] MEDS: Polyethylene Glycol 3350 17 GM Packet PO SCH (21:45)
[2019-06-17] MEDS: Milk Of Magnesia 30 ML UDCUP PO SCH (22:45)
[2019-06-18 06:18] LABS: Prothrombin Time 31.3 SEC (12.0-14.7)
[2019-06-18] MEDS: CEFAZOLIN 2 GM in Sodium Chloride 0.9% 100 ML IVPB SCH (07:55)
[2019-06-18] MEDS: Levothyroxine Sodium 50 MCG TAB PO SCH (07:55)
[2019-06-18] MEDS ORDERED: Bisacodyl 10 MG SUPP PR SCH (09:00)
[2019-06-18] MEDS ORDERED: Cyanocobalamin (Vitamin B-12) 1,000 MCG TAB PO SCH (09:00)
[2019-06-18] MEDS ORDERED: Divalproex Sodium DR 500 MG TAB PO SCH (09:00)
[2019-06-18] MEDS: Dextrose 5% in Water 1,000 ML IV SCH (09:17)
[2019-06-18] MEDS: levETIRAcetam 500 MG TAB PO SCH ×2 (09:20→22:16)
[2019-06-18] MEDS: Topiramate 25 MG TAB PO SCH ×2 (09:21→22:16)
[2019-06-18] MEDS: Topiramate 100 MG TAB PO SCH ×2 (09:21→22:16)
[2019-06-18] MEDS: Senokot S 8.6-50 MG TAB PO SCH ×2 (09:23→22:15)
[2019-06-18] MEDS: Metoprolol Tartrate 25 MG TAB PO SCH ×2 (09:24→22:17)
[2019-06-18] MEDS: Amiodarone 200 MG TAB PO SCH ×2 (09:26→22:17)
[2019-06-18] MEDS: Divalproex Sodium 250 MG (DR) TAB PO SCH ×2 (09:26→22:26)
[2019-06-18] MEDS: Famotidine 20 MG TAB PO SCH (09:27)
[2019-06-18] MEDS: Cyanocobalamin (Vitamin B-12) 1,000 MCG TAB PO SCH (09:27)
[2019-06-18] MEDS: Saccharomyces boulardii 250 MG CAP PO SCH (09:27)
[2019-06-18] MEDS: Gabapentin 300 MG CAP PO SCH ×3 (09:27→22:17)
[2019-06-18] MEDS: Polyethylene Glycol 3350 17 GM Packet PO SCH (09:31)
[2019-06-18] MEDS: Morphine 2 MG/ML SYRINGE SLOW IVP PRN ×2 (13:22→20:43)
--- NOTE | 2019-06-18 13:47 | PDOC.PN ---
- Subjective Encounter Start Date: 06/18/19 Encounter Start Time: 10:30 Patient seen and examined for AMS. Mentation improving. No new seizure. No new complaints. No overnight events - Objective Resuscitation Status - Order Detail: 06/11/19 15:27 Resuscitation Status Routine Resuscitation Status: FULL: Full Resuscitation MAR Reviewed: Yes Vital Signs & Weight: Vital Signs (12 hours) Temp Pulse Resp BP Pulse Ox 06/18/19 11:49 98.1 F 76 18 139/74 95 06/18/19 10:29 82 20 94 L 06/18/19 09:15 92 L 06/18/19 07:58 98.2 F 77 16 118/63 92 L 06/18/19 06:44 71 16 94 L 06/18/19 04:00 98.1 F 77 24 H 112/64 93 L 06/18/19 02:21 74 20 93 L Weight Admit Weight 262 lb 9.6 oz Weight 262 lb 9.6 oz I&O: 06/17/19 06/18/19 06/19/19 06:59 06:59 06:59 Intake Total 1250 500 550 Output Total 2150 750 1225 Balance -417 -146 -675 Result Diagrams: 06/17/19 02:58 06/17/19 02:58 EKG Reviewed by me: Yes (Tele SR) Phys Exam - Physical Examination Constitutional: NAD Respiratory: no wheezing, no rhonchi Cardiovascular: RRR, no rub Gastrointestinal: soft, non-tender, positive bowel sounds Musculoskeletal: no edema Neurological: moves all 4 limbs Dx/Plan - Plan IMPRESSION: 1. Toxic metabolic encephalopathy secondary to seizure. improving 2. Acute kidney injury on chronic kidney disease, stage 2. 3. Dehydration with hypernatremia. 4. Abnormal liver function tests, probably secondary to dehydration. 5. Elevated troponin secondary to demand ischemia/type 2 myocardial infarction. 6. Rhabdomyolysis. 7. Metabolic acidosis. 8. Chronic Atrial fibrillation - on Warfarin - INR 3.0 today 9. Hypertension. 10. Dyslipidemia. 11. Hypothyroidism. 12. Gastroesophageal reflux disease. 13. History of vitamin B12 deficiency. 14. Physical deconditioning. 15. 2/2 Staphylococcus bacteremia. Contamination per ID 16. Left-sided pneumonia, suspected aspiration. 17. History of seizure disorder. 18. Urinary retention - Olguin placed this admission 19. Decubitus ulcer, present on admission. Please refer to Wound Care note. 20. Obesity with a BMI of 32. PLAN: DC Ancef Start PO Augmentin Treat constipation Cont Keppra/Depakote/Topamax/Gabapentin. Cont other meds as below Stable for discharge - Await Rehab vs SNF placement AM labs including Warfarin Review of Systems - Review of Systems Respiratory: negative: Cough, Dry, Shortness of Breath, Hemoptysis, SOB with Excertion, Pleuritic Pain, Sputum, Wheezing Cardiovascular: negative: chest pain, palpitations, orthopnea, paroxysmal nocturnal dyspnea, edema, light headedness, other - Medications/Allergies Allergies/Adverse Reactions: Allergies Allergy/AdvReac Type Severity Reaction Status Date / Time aspirin Allergy Verified 06/12/19 00:00 Medications: Current Medications Acetaminophen (Tylenol) 650 mg PO Q4H PRN PRN Reason: Headache/Fever or Mild Pain Albuterol/Ipratropium (Duoneb) 3 ml NEB [id number] [facility] Last Admin: 06/18/19 10:29 Dose: 3 ml Amiodarone HCl (Cordarone) 200 mg PO BID [facility] Last Admin: 06/18/19 09:26 Dose: 200 mg Amoxicillin/Clavulanate Potassium (Augmentin) 500 mg PO TID [facility] Atorvastatin Calcium (Lipitor) 10 mg PO HS [facility] Last Admin: 06/17/19 21:41 Dose: 10 mg Cyanocobalamin (Vitamin B-12) 1,000 mcg PO DAILY [facility] Last Admin: 06/18/19 09:27 Dose: 1,000 mcg Divalproex Sodium (Depakote) 250 mg PO BID [facility] Last Admin: 06/18/19 09:26 Dose: 250 mg Famotidine (Pepcid) 20 mg PO DAILY [facility] Last Admin: 06/18/19 09:27 Dose: 20 mg Folic Acid (Folvite) 1 mg PO Q24HR [facility] Last Admin: 06/17/19 17:03 Dose: 1 mg Gabapentin (Neurontin) 900 mg PO TID [facility] Last Admin: 06/18/19 09:27 Dose: 900 mg Hydralazine HCl (Apresoline) 10 mg SLOW IVP Q4H PRN PRN Reason: SBP Greater Than 180 Dextrose/Water (D5w) 1,000 mls @ 50 mls/hr IV .Q20H [facility] Last Admin: 06/18/19 09:17 Dose: 1,000 mls Lactulose (Lactulose) 10 gm PO DAILY [facility] Levetiracetam (Keppra) 500 mg PO BID [facility] Last Admin: 06/18/19 09:20 Dose: 500 mg Levothyroxine Sodium (Synthroid) 50 mcg PO 0600 [facility] Last Admin: 06/18/19 07:55 Dose: 50 mcg Lorazepam (Ativan) 1 mg SLOW IVP Q1H PRN PRN Reason: Seizures Magnesium Hydroxide (Milk Of Magnesium) 30 ml PO HS [facility] Last Admin: 06/17/19 22:45 Dose: 30 ml Metoprolol Tartrate (Lopressor) 12.5 mg PO BID [facility] Last Admin: 06/18/19 09:24 Dose: 12.5 mg Miscellaneous Medication (Pharmacy To Dose) 1 each PO .WARFARIN [facility] Morphine Sulfate (Morphine) 2 mg SLOW IVP Q4H PRN PRN Reason: Moderate Pain (4-6) Last Admin: 06/18/19 13:22 Dose: 2 mg Ondansetron HCl (Zofran Odt) 4 mg PO Q6H PRN PRN Reason: Nausea/Vomiting Polyethylene Glycol (Miralax) 17 gm PO DAILY [facility] Saccharomyces Boulardii (Florastor) 250 mg PO DAILY [facility] Last Admin: 06/18/19 09:27 Dose: 250 mg Senna/Docusate Sodium (Senokot S) 2 tab PO BID [facility] Last Admin: 06/18/19 09:23 Dose: 2 tab Sodium Chloride (Flush - Normal Saline) 10 ml IVF Q12HR [facility] Last Admin: 06/18/19 09:34 Dose: Not Given Sodium Chloride (Flush - Normal Saline) 10 ml IVF PRN PRN PRN Reason: Saline Flush Topiramate (Topamax) 100 mg PO BID [facility] Last Admin: 06/18/19 09:21 Dose: 100 mg Topiramate (Topamax) 25 mg PO BID [facility] Last Admin: 06/18/19 09:21 Dose: 25 mg Warfarin Sodium (Coumadin) 2.5 mg PO MoFr@1700 [facility] Last Admin: 06/16/19 15:54 Dose: 2.5 mg Warfarin Sodium (Coumadin) 1.25 mg PO SuTuWeThSa@1700 [facility] Last Admin: 06/17/19 17:03 Dose: 1.25 mg
[2019-06-18] MEDS: Amoxicillin/Potassium Clav 500 MG TAB PO SCH ×2 (15:30→22:19)
[2019-06-18] MEDS: Warfarin Sodium 1.25 MG HALF.TAB PO SCH (16:45)
[2019-06-18] MEDS: Folic Acid 1 MG TAB PO SCH (16:46)
[2019-06-18] MEDS: Atorvastatin Calcium 10 MG TAB PO SCH (22:17)
[2019-06-18] MEDS: Milk Of Magnesia 30 ML UDCUP PO SCH (22:19)
[2019-06-19 05:09] LABS: Hemoglobin 11.7 g/dL (14.0-18.0); Platelet Count 240 thou/uL (130-400)
[2019-06-19 05:15] LABS: INR-International Normal Ratio 3.4; Prothrombin Time 34.1 SEC (12.0-14.7)
[2019-06-19 05:39] LABS: Albumin 2.6 g/dL (3.4-4.8); Anion Gap 10 mmol/L (10-20); BUN (Urea Nitrogen) 13 mg/dL (8.4-25.7); BUN/Creatinine Ratio 15.48; Calc. Creatinine Clearance 150 mL/min (70-130); Calcium 8.9 mg/dL (7.8-10.44); Carbon Dioxide 22 mmol/L (23-31); Chloride 109 mmol/L (98-107); Estimated GFR-MDRD Greater than 90; Glucose 96 mg/dL (80-115); Magnesium 2.1 mg/dL (1.6-2.6); Potassium 3.8 mmol/L (3.5-5.1); Sodium 137 mmol/L (136-145)
[2019-06-19] MEDS: Dextrose 5% in Water 1,000 ML IV SCH (06:56)
[2019-06-19] MEDS: Levothyroxine Sodium 50 MCG TAB PO SCH (06:56)
[2019-06-19] MEDS: levETIRAcetam 500 MG TAB PO SCH ×2 (09:14→20:26)
[2019-06-19] MEDS: Amoxicillin/Potassium Clav 500 MG TAB PO SCH ×3 (09:14→20:27)
[2019-06-19] MEDS: Topiramate 25 MG TAB PO SCH ×2 (09:15→20:27)
[2019-06-19] MEDS: Cyanocobalamin (Vitamin B-12) 1,000 MCG TAB PO SCH (09:15)
[2019-06-19] MEDS: Senokot S 8.6-50 MG TAB PO SCH ×2 (09:16→20:27)
[2019-06-19] MEDS: Topiramate 100 MG TAB PO SCH ×2 (09:16→20:27)
[2019-06-19] MEDS: Polyethylene Glycol 3350 17 GM Packet PO SCH (09:17)
[2019-06-19] MEDS: Gabapentin 300 MG CAP PO SCH ×3 (09:18→20:26)
[2019-06-19] MEDS: Saccharomyces boulardii 250 MG CAP PO SCH (09:18)
[2019-06-19] MEDS: Amiodarone 200 MG TAB PO SCH ×2 (09:18→20:27)
[2019-06-19] MEDS: Famotidine 20 MG TAB PO SCH (09:18)
[2019-06-19] MEDS: Metoprolol Tartrate 25 MG TAB PO SCH ×2 (09:24→20:27)
[2019-06-19] MEDS: Divalproex Sodium 250 MG (DR) TAB PO SCH ×2 (11:28→20:27)
[2019-06-19] MEDS ORDERED: Senokot S 8.6-50 MG TAB PO SCH ×2 (12:08→13:00)
--- NOTE | 2019-06-19 12:12 | PDOC.PN ---
- Subjective Encounter Start Date: 06/19/19 Encounter Start Time: 12:11 Patient seen and examined for Encephalopathy. Mentation gradually improving. No CP/SOB/Abd pain. No new complaints. No overnight events - Objective Resuscitation Status - Order Detail: 06/11/19 15:27 Resuscitation Status Routine Resuscitation Status: FULL: Full Resuscitation MAR Reviewed: Yes Vital Signs & Weight: Vital Signs (12 hours) Temp Pulse Pulse Resp BP BP Pulse Ox 06/19/19 12:00 98.1 F 72 18 135/77 94 L 06/19/19 10:40 67 16 92 L 06/19/19 09:49 65 114/61 06/19/19 08:00 98.6 F 69 18 124/68 92 L 06/19/19 06:52 65 16 94 L 06/19/19 03:42 98.7 F 66 24 H 108/63 93 L 06/19/19 02:19 84 16 93 L Weight Admit Weight 262 lb 9.6 oz Weight 262 lb 9.6 oz I&O: 06/18/19 06/19/19 06/20/19 06:59 06:59 06:59 Intake Total 500 790 Output Total 750 2125 1200 Balance -354 -5894 -6263 Result Diagrams: 06/19/19 04:51 06/19/19 04:51 EKG Reviewed by me: Yes (Tele SR) Phys Exam - Physical Examination Constitutional: NAD Respiratory: no wheezing, no rhonchi dec AE at bases Cardiovascular: RRR, no rub Gastrointestinal: soft, non-tender, positive bowel sounds Neurological: moves all 4 limbs Dx/Plan - Plan DVT proph w/SCDs IMPRESSION: 1. Toxic metabolic encephalopathy secondary to seizure. 2. Acute kidney injury on chronic kidney disease, stage 2/Rhabdomyolysis/ Dehydration with hypernatremia. 3. Chronic Atrial fibrillation - on Warfarin - INR supratherapeutic 4. Abnormal liver function tests, probably secondary to dehydration. 5. Elevated troponin secondary to demand ischemia/type 2 myocardial infarction. 6. Urinary retention - Olguin placed this admission 7. Metabolic acidosis. 8. Aspiration pneumonia. 9. Hypertension. 10. Dyslipidemia. 11. Hypothyroidism. 12. Gastroesophageal reflux disease. 13. History of vitamin B12 deficiency. 14. Physical deconditioning. 15. 2/2 Staphylococcus bacteremia. Contamination per ID 16. Obesity with a BMI of 32. 17. History of seizure disorder. 18. Decubitus ulcer, present on admission. Please refer to Wound Care note. PLAN: Cont Augmentin Cont Keppra/Depakote/Topamax/Gabapentin and other meds as below Stable for discharge - Await Rehab vs SNF placement PT/INR in AM ABBI Olguin in 1-2 days Review of Systems - Review of Systems Respiratory: negative: Cough, Dry, Shortness of Breath, Hemoptysis, SOB with Excertion, Pleuritic Pain, Sputum, Wheezing Cardiovascular: negative: chest pain, palpitations, orthopnea, paroxysmal nocturnal dyspnea, edema, light headedness, other - Medications/Allergies Allergies/Adverse Reactions: Allergies Allergy/AdvReac Type Severity Reaction Status Date / Time aspirin Allergy Verified 06/12/19 00:00 Medications: Current Medications Acetaminophen (Tylenol) 650 mg PO Q4H PRN PRN Reason: Headache/Fever or Mild Pain Last Admin: 06/18/19 22:18 Dose: 650 mg Albuterol/Ipratropium (Duoneb) 3 ml NEB [id number] [facility] Last Admin: 06/19/19 10:40 Dose: 3 ml Amiodarone HCl (Cordarone) 200 mg PO BID [facility] Last Admin: 06/19/19 09:18 Dose: 200 mg Amoxicillin/Clavulanate Potassium (Augmentin) 500 mg PO TID [facility] Last Admin: 06/19/19 09:14 Dose: 500 mg Atorvastatin Calcium (Lipitor) 10 mg PO HS [facility] Last Admin: 06/18/19 22:17 Dose: 10 mg Cyanocobalamin (Vitamin B-12) 1,000 mcg PO DAILY [facility] Last Admin: 06/19/19 09:15 Dose: 1,000 mcg Divalproex Sodium (Depakote) 250 mg PO BID [facility] Last Admin: 06/19/19 11:28 Dose: 250 mg Famotidine (Pepcid) 20 mg PO DAILY [facility] Last Admin: 06/19/19 09:18 Dose: 20 mg Folic Acid (Folvite) 1 mg PO Q24HR [facility] Last Admin: 06/18/19 16:46 Dose: 1 mg Gabapentin (Neurontin) 900 mg PO TID [facility] Last Admin: 06/19/19 09:18 Dose: 900 mg Hydralazine HCl (Apresoline) 10 mg SLOW IVP Q4H PRN PRN Reason: SBP Greater Than 180 Dextrose/Water (D5w) 1,000 mls @ 50 mls/hr IV .Q20H [facility] Last Admin: 06/19/19 06:56 Dose: 1,000 mls Lactulose (Lactulose) 10 gm PO DAILY [facility] Last Admin: 06/19/19 09:20 Dose: 10 gm Levetiracetam (Keppra) 500 mg PO BID [facility] Last Admin: 06/19/19 09:14 Dose: 500 mg Levothyroxine Sodium (Synthroid) 50 mcg PO 0600 [facility] Last Admin: 06/19/19 06:56 Dose: 50 mcg Lorazepam (Ativan) 1 mg SLOW IVP Q1H PRN PRN Reason: Seizures Metoprolol Tartrate (Lopressor) 12.5 mg PO BID [facility] Last Admin: 06/19/19 09:24 Dose: 12.5 mg Morphine Sulfate (Morphine) 2 mg SLOW IVP Q4H PRN PRN Reason: Moderate Pain (4-6) Last Admin: 06/18/19 20:43 Dose: 2 mg Ondansetron HCl (Zofran Odt) 4 mg PO Q6H PRN PRN Reason: Nausea/Vomiting Polyethylene Glycol (Miralax) 17 gm PO DAILY [facility] Last Admin: 06/19/19 09:17 Dose: Not Given Saccharomyces Boulardii (Florastor) 250 mg PO DAILY [facility] Last Admin: 06/19/19 09:18 Dose: 250 mg Senna/Docusate Sodium (Senokot S) 1 tab PO BID [facility] Sodium Chloride (Flush - Normal Saline) 10 ml IVF Q12HR [facility] Last Admin: 06/19/19 09:16 Dose: Not Given Sodium Chloride (Flush - Normal Saline) 10 ml IVF PRN PRN PRN Reason: Saline Flush Topiramate (Topamax) 100 mg PO BID [facility] Last Admin: 06/19/19 09:16 Dose: 100 mg Topiramate (Topamax) 25 mg PO BID [facility] Last Admin: 06/19/19 09:15 Dose: 25 mg Warfarin Sodium (Coumadin) 2.5 mg PO MoFr@1700 [facility] Last Admin: 06/16/19 15:54 Dose: 2.5 mg Warfarin Sodium (Coumadin) 1.25 mg PO SuTuWeThSa@1700 [facility] Last Admin: 06/18/19 16:45 Dose: 1.25 mg
[2019-06-19] MEDS: Acetaminophen 325 MG TAB PO SCH ×2 (15:04→20:27)
[2019-06-19] MEDS: Folic Acid 1 MG TAB PO SCH (18:31)
[2019-06-19] MEDS: Atorvastatin Calcium 10 MG TAB PO SCH (20:26)
[2019-06-20] MEDS: traMADol HCl 50 MG TAB PO PRN ×3 (01:32→10:46)
[2019-06-20] MEDS: Dextrose 5% in Water 1,000 ML IV SCH (04:20)
[2019-06-20] MEDS: Levothyroxine Sodium 50 MCG TAB PO SCH (05:14)
[2019-06-20 05:16] LABS: Hemoglobin 11.7 g/dL (14.0-18.0); Platelet Count 256 thou/uL (130-400)
[2019-06-20 05:20] LABS: INR-International Normal Ratio 3.9; Prothrombin Time 37.7 SEC (12.0-14.7)
[2019-06-20] MEDS: Amiodarone 200 MG TAB PO SCH ×2 (08:18→20:35)
[2019-06-20] MEDS: Divalproex Sodium 250 MG (DR) TAB PO SCH ×2 (08:18→20:35)
[2019-06-20] MEDS: Topiramate 25 MG TAB PO SCH ×2 (08:18→20:36)
[2019-06-20] MEDS: Cyanocobalamin (Vitamin B-12) 1,000 MCG TAB PO SCH (08:18)
[2019-06-20] MEDS: levETIRAcetam 500 MG TAB PO SCH ×2 (08:18→20:34)
[2019-06-20] MEDS: Acetaminophen 325 MG TAB PO SCH ×3 (08:18→20:34)
[2019-06-20] MEDS: Amoxicillin/Potassium Clav 500 MG TAB PO SCH ×3 (08:18→20:34)
[2019-06-20] MEDS: Topiramate 100 MG TAB PO SCH ×2 (08:18→20:34)
[2019-06-20] MEDS: Saccharomyces boulardii 250 MG CAP PO SCH (08:19)
[2019-06-20] MEDS: Metoprolol Tartrate 25 MG TAB PO SCH ×2 (08:19→20:35)
[2019-06-20] MEDS: Famotidine 20 MG TAB PO SCH (08:19)
[2019-06-20] MEDS: Senokot S 8.6-50 MG TAB PO SCH ×2 (08:19→20:36)
[2019-06-20] MEDS: Gabapentin 300 MG CAP PO SCH ×3 (08:19→20:34)
[2019-06-20] MEDS: Polyethylene Glycol 3350 17 GM Packet PO SCH (08:20)
--- NOTE | 2019-06-20 10:40 | PDOC.HOSPP ---
- Subjective Subjective: Patient seen and examined for Seizure/Encephalopathy. No new complaints. No overnight events - Objective Vital Signs & Weight: Vital Signs (12 hours) Temp Pulse Resp BP Pulse Ox 06/20/19 08:15 93 L 06/20/19 08:00 97.8 F 70 20 126/75 93 L 06/20/19 07:04 72 16 96 06/20/19 04:00 97.6 F 66 18 130/64 96 06/20/19 02:08 70 16 94 L 06/20/19 00:00 97.5 F L 62 16 116/73 98 Weight Admit Weight 262 lb 9.6 oz Weight 262 lb 9.6 oz I&O: 06/19/19 06/20/19 06/21/19 06:59 06:59 06:59 Intake Total 790 480 Output Total 3339 6250 Balance -6962 -9719 Result Diagrams: 06/20/19 04:50 06/19/19 04:51 EKG Reviewed by me: Yes (Tele SR) ROS - Review of Systems All systems: All other ROS were reviewed and found negative. Respiratory: negative: cough, dry, shortness of breath, hemoptysis, SOB with excertion, pleuritic pain, sputum, wheezing, other Cardiovascular: negative: chest pain, palpitations, orthopnea, paroxysmal noc. dyspnea, edema, light headedness, other - Medication Medications: Active Medications Generic Name Dose Route Start Last Admin Trade Name Freq PRN Reason Stop Dose Admin Acetaminophen 650 mg 06/17/19 15:45 06/18/19 22:18 Tylenol PO 650 mg Q4H PRN Administration Headache/Fever or Mild Pain Acetaminophen 650 mg 06/19/19 15:00 06/20/19 08:18 Tylenol PO 650 mg TID [facility] Administration Albuterol/Ipratropium 3 ml 06/17/19 02:30 06/20/19 07:04 Duoneb NEB 3 ml [id number] [facility] Administration Amiodarone HCl 200 mg 06/12/19 09:00 06/20/19 08:18 Cordarone PO 200 mg BID [facility] Administration Amoxicillin/Clavulanate Potassium 500 mg 06/18/19 15:00 06/20/19 08:18 Augmentin PO 500 mg TID [facility] Administration Atorvastatin Calcium 10 mg 06/12/19 21:00 06/19/19 20:26 Lipitor PO 10 mg HS [facility] Administration Cyanocobalamin 1,000 mcg 06/17/19 09:00 06/20/19 08:18 Vitamin B-12 PO 1,000 mcg DAILY [facility] Administration Divalproex Sodium 250 mg 06/18/19 09:00 06/20/19 08:18 Depakote PO 250 mg BID [facility] Administration Famotidine 20 mg 06/18/19 09:00 06/20/19 08:19 Pepcid PO 20 mg DAILY [facility] Administration Folic Acid 1 mg 06/16/19 17:30 06/19/19 18:31 Folvite PO 1 mg Q24HR [facility] Administration Gabapentin 900 mg 06/12/19 09:00 06/20/19 08:19 Neurontin PO 900 mg TID [facility] Administration Dextrose/Water 1,000 mls @ 50 mls/hr 06/17/19 08:08 06/20/19 04:20 D5w IV Not Given .Q20H [facility] Lactulose 10 gm 06/19/19 09:00 06/20/19 08:19 Lactulose PO 10 gm DAILY [facility] Administration Levetiracetam 500 mg 06/17/19 21:00 06/20/19 08:18 Keppra PO 500 mg BID [facility] Administration Levothyroxine Sodium 50 mcg 06/13/19 06:00 06/20/19 05:14 Synthroid PO 50 mcg 0600 [facility] Administration Metoprolol Tartrate 12.5 mg 06/12/19 09:00 06/20/19 08:19 Lopressor PO 12.5 mg BID [facility] Administration Morphine Sulfate 2 mg 06/11/19 16:08 06/18/19 20:43 Morphine SLOW IVP 2 mg Q4H PRN Administration Moderate Pain (4-6) Polyethylene Glycol 17 gm 06/19/19 09:00 06/20/19 08:20 Miralax PO Not Given DAILY [facility] Saccharomyces Boulardii 250 mg 06/17/19 09:00 06/20/19 08:19 Florastor PO 250 mg DAILY [facility] Administration Senna/Docusate Sodium 1 tab 06/19/19 21:00 06/20/19 08:19 Senokot S PO 1 tab BID [facility] Administration Sodium Chloride 10 ml 06/13/19 21:00 06/20/19 08:20 Flush - Normal Saline IVF Not Given Q12HR [facility] Topiramate 100 mg 06/12/19 09:00 06/20/19 08:18 Topamax PO 100 mg BID [facility] Administration Topiramate 25 mg 06/12/19 09:00 06/20/19 08:18 Topamax PO 25 mg BID [facility] Administration Tramadol HCl 50 mg 06/20/19 01:25 06/20/19 05:14 Ultram PO 50 mg Q4H PRN Administration Pain Warfarin Sodium 2.5 mg 06/12/19 17:00 06/16/19 15:54 Coumadin PO 2.5 mg MoFr@1700 [facility] Administration Warfarin Sodium 1.25 mg 06/13/19 17:00 06/18/19 16:45 Coumadin PO 1.25 mg SuTuWeThSa@1700 [facility] Administration - Exam NAD Heart: RRR, no gallops Respiratory: CTAB, no rales Gastrointestinal: soft, normal bowel sounds Neurological: no new deficit Hosp A/P - Plan PT/OT, social worker masters, speech therapy, dc hernandez (in 1-2 days) IMPRESSION: 1. Toxic metabolic encephalopathy secondary to seizure. Mentation improving 2. Acute kidney injury on chronic kidney disease, stage 2/Rhabdomyolysis/ Dehydration with hypernatremia. 3. Chronic Atrial fibrillation - on Warfarin - INR supratherapeutic 4. Abnormal liver function tests, probably secondary to dehydration. 5. Elevated troponin secondary to demand ischemia/type 2 myocardial infarction. 6. Urinary retention - Hernandez placed this admission 7. Metabolic acidosis. 8. Aspiration pneumonia. on Augmentin 9. Hypertension. 10. Dyslipidemia. 11. Hypothyroidism. 12. Gastroesophageal reflux disease. 13. History of vitamin B12 deficiency. 14. Physical deconditioning. 15. 2/2 Staphylococcus bacteremia. Contamination per ID 16. Obesity with a BMI of 32. 17. History of seizure disorder. 18. Decubitus ulcer, present on admission. Please refer to Wound Care note. 19. Swallow dys - on modified diet PLAN: Cont Augmentin and AEDs Warfarin on hold Stable for discharge - Await Rehab vs SNF placement PT/INR in AM DC Hernandez in 1-2 days Laboratory Tests 06/20/19 04:50 PT 37.7 H INR 3.9
[2019-06-20] MEDS: Folic Acid 1 MG TAB PO SCH (17:43)
[2019-06-20 20:32] VITALS: BP 112/64; TEMP 97.2
[2019-06-20] MEDS: Atorvastatin Calcium 10 MG TAB PO SCH (20:35)
--- NOTE | 2019-06-20 21:55 | DIS ---
DATE OF ADMISSION: 06/11/2019 DATE OF DISCHARGE: 06/20/2019 DISCHARGE DISPOSITION: Inpatient rehabilitation. The patient was seen and examined on the day of discharge. Please refer to my progress note from today. DISCHARGE MEDICATIONS: 1. Tylenol as needed. 2. Amiodarone 200 mg b.i.d. 3. Gabapentin 900 mg three times a day. 4. Levothyroxine 50 mcg daily. 5. Claritin 10 mg daily. 6. Simvastatin 20 mg at bedtime. 7. Topamax 25 mg b.i.d. 8. DuoNeb every 4 hourly. 9. Folic acid 1 mg daily. 10. Augmentin 500 mg 3 times daily, to be discontinued after 5 days. 11. Vitamin B12 1000 mcg daily. 12. Depakote 500 mg twice a day. 13. Keppra 500 mg b.i.d. 14. Lopressor 12.5 mg b.i.d. 15. MiraLAX daily. 16. Florastor 250 mg daily. 17. Senokot S one tablet b.i.d. 18. Topamax 100 mg b.i.d. (the patient takes 125 mg twice a day Topamax). INPATIENT CONSULTANTS: 1. Infectious Disease, Dr. Russell. 2. Neurology Dr. Baldwin. BRIEF HOSPITAL COURSE: The patient is a 64-year-old male with seizure disorder; atrial fibrillation, on anticoagulation; hypertension, and dyslipidemia, was brought in on 06/11/2019, with unresponsiveness. Please refer to the history and physical by Dr. Ijeoma Howard for further details. The patient was admitted to the hospital with a diagnosis of breakthrough seizure causing rhabdomyolysis. The patient was last seen normal 5 days before the admission. It is unclear how long the patient stayed on the floor. He was started on Keppra along with IV hydration. The patient was seen by Neurology as well. He had encephalopathy that slowly improved over the course of the hospitalization. He also had acute kidney injury that gradually resolved. He was restarted back on anticoagulation. His INR is supratherapeutic on the day of discharge at 3.9. Warfarin will be resumed once his INR is below 3. The patient was also found to have 2/2 coagulase-negative staphylococcus bacteremia. He was seen by Infectious Disease, who recommended to discontinue antibiotics. The bacteremia is probably contamination per Infectious Disease. He also had urinary retention for which Olguin catheter was placed. Olguin catheter can probably be discontinued in 1 to 2 days. He would require postvoid residual to be monitored. He was also found to have aspiration pneumonia for which he was placed on IV antibiotics. He will continue Augmentin for another 5 days. He also had decubitus ulcer present on admission. He will continue wound care at the rehab. He is on modified diet per Speech Therapy recommendation. Please note that he would require daily PT/INR until his INR becomes therapeutic. Warfarin can probably be restarted at that time. SIGNIFICANT LABORATORY DATA: CK on admission 6317, at discharge 235. Maximum sodium was 148, at discharge 137. Creatinine on admission was 1.86, at discharge 0.84. Troponin maximum 0.042. Total bilirubin on admission 1.5, at discharge is 0.9. Urine drug screen was negative. CT scan of the brain was negative for acute findings. Cervical spine CT was negative for acute fractures. Chest x-ray on admission was negative for acute findings. Repeat chest x-ray on 06/13/2019, showed retrocardiac infiltrate. He had a chest x-ray 2 days prior to discharge that showed stable findings. Renal ultrasound was negative for obstructive uropathy. Pelvis, humerus, and shoulder x-rays were negative for acute fractures. FINAL DIAGNOSES: 1. Toxic metabolic encephalopathy secondary to breakthrough seizures. 2. Acute kidney injury on chronic kidney disease stage 2. 3. Rhabdomyolysis. 4. Dehydration. 5. Paroxysmal atrial fibrillation, on anticoagulation. Please note that INR is supratherapeutic at the time of discharge. Coumadin needs to be restarted once his INR is below 3. 6. Abnormal LFTs, probably secondary to #1 and dehydration, resolved. 7. Elevated troponin secondary to demand ischemia/type 2 myocardial infarction. 8. Urinary retention. Olguin catheter can probably be discontinued after 1-2 days. 9. Metabolic acidosis. 10. Aspiration pneumonia. The patient needs Augmentin for another 5 days. 11. Hypertension. 12. Dyslipidemia. 13. Hypothyroidism. 14. Gastroesophageal reflux disease. 15. History of vitamin B12 deficiency. 16. Physical deconditioning. 17. Epilepsy. 18. Decubitus ulcer, present on admission. 19. Swallow dysfunction. 20. Obesity with a BMI of 32. 21. 2/2 staphylococcal bacteremia. Contamination per Infectious Disease. TIME SPENT: Total time coordinating the discharge of this patient was 37 minutes. Job ID: [id number]
== END 2019-06-20 22:07 | DRG 100 ==
LOC: ERS 10:49 → ERHOLD 12:15 → 2SE 17:56
PROVIDERS: ADMIT Family Medicine; ATTEND Family Medicine
DX: G40.909 Epilepsy, unspecified, not intractable, without status epilepticus (principal); G92 Toxic encephalopathy; I21.A1 Myocardial infarction type 2; J69.0 Pneumonitis due to inhalation of food and vomit; N17.9 Acute kidney failure, unspecified; E87.0 Hyperosmolality and hypernatremia; R78.81 Bacteremia; E87.2 Acidosis; T79.6XXA Traumatic ischemia of muscle, initial encounter; Z79.01 Long term (current) use of anticoagulants; D69.6 Thrombocytopenia, unspecified; E03.9 Hypothyroidism, unspecified; E78.5 Hyperlipidemia, unspecified; K21.9 Gastro-esophageal reflux disease without esophagitis; E86.0 Dehydration; R59.0 Localized enlarged lymph nodes; N18.2 Chronic kidney disease, stage 2 (mild); I12.9 Hypertensive chronic kidney disease with stage 1 through stage 4 chronic kidney disease, or unspecified chronic kidney disease; E53.8 Deficiency of other specified B group vitamins; E66.9 Obesity, unspecified; R33.9 Retention of urine, unspecified; I48.2 Chronic atrial fibrillation; L89.152 Pressure ulcer of sacral region, stage 2; Z88.8 Allergy status to other drugs, medicaments and biological substances; Z68.32 Body mass index [BMI] 32.0-32.9, adult; Z79.02 Long term (current) use of antithrombotics/antiplatelets; Z79.899 Other long term (current) drug therapy
CPT/HCPCS: 36415; 51702; 70450; 71045; 72125; 72170; 74022; 76770; 80048; 80053; 80069; 80306; 80307; 81003; 81015; 82550; 82553; 82805; 83690; 83735; 83880; 84100; 84443; 84484; 85014; 85018; 85025; 85049; 85610; 87040; 87077; 87086; 87149; 87186; 93005; 93306; 94640; 95816; 95819; 96361; 96365; 96375; J0456; J0690; J0696; J1953; J2270; J3490; J7050; J7620; S0028

== ENCOUNTER 2021-05-09 00:17 | Emergency (ER) | payer OTHER, MEDICARE | END 2021-05-09 03:16 | disposition home or self-care (01) | LOC: ERS 00:17 | DX: R07.89 Other chest pain (principal); I10 Essential (primary) hypertension; E03.9 Hypothyroidism, unspecified; E78.5 Hyperlipidemia, unspecified; F17.220 Nicotine dependence, chewing tobacco, uncomplicated; Z79.899 Other long term (current) drug therapy; W01.0XXA Fall on same level from slipping, tripping and stumbling without subsequent striking against object, initial encounter ==

== ENCOUNTER 2022-06-19 08:49 | Outpatient (CLI) | payer MEDICARE ==
[2022-06-19 10:04] LABS: Hemoglobin 13.7 g/dL (13.5-17.5); Mean Corpuscular HGB CONC 33.7 g/dL (32.0-36.0); Mean Corpuscular Hemoglobin 28.5 pg (27.0-33.0); Mean Corpuscular Volume 84.6 fl (81.2-95.1); Mean Platelet Volume 11.9 fl (7.4-10.4); Platelet Count 186 10x3/uL (150-450); RBC Distribution Width 13.6 % (11.5-14.5); Red Blood Cell (RBC) Count 4.81 10x6/uL (4.32-5.72); White Blood Cell (WBC) Count 5.2 10x3/uL (3.5-10.5)
[2022-06-19 10:25] LABS: Anion Gap 15 mmol/L (10-20); BUN (Urea Nitrogen) 9 mg/dL (8.4-25.7); Calc. Creatinine Clearance 0 mL/min (70-130); Calcium 9.6 mg/dL (7.8-10.44); Carbon Dioxide 27 mmol/L (23-31); Chloride 92 mmol/L (98-107); Estimated GFR 64; Glucose 78 mg/dL (80-115); INR-International Normal Ratio 1.1; PTT 29.1 sec (22.0-33.0); Potassium 5.5 mmol/L (3.5-5.1); Prothrombin Time 11.9 sec (9.5-12.1); Sodium 128 mmol/L (136-145)
== END 2022-06-19 08:50 | disposition home or self-care (01) ==
LOC: LABBT 08:49
PROVIDERS: ATTEND Emergency Medicine
DX: Z01.818 Encounter for other preprocedural examination (principal); Z20.822 Contact with and (suspected) exposure to COVID-19; I48.91 Unspecified atrial fibrillation
CPT/HCPCS: 80048; 85027; 85610; 85730; 87811

== ENCOUNTER 2022-06-22 06:28 | Day surgery (SDC) | payer MEDICARE ==
[2022-06-19 09:52] VITALS: BMI 31.7
[2022-06-22] MEDS ORDERED: PROPOFOL 200 MG/20 ML VIAL ONE (08:52)
== END 2022-06-22 10:26 | disposition home or self-care (01) ==
LOC: SDC 06:28
PROVIDERS: ATTEND Internal Medicine Cardiovascular Disease
PROC: B246ZZ4 Ultrasonography of Right and Left Heart, Transesophageal (ICD-10-PCS; principal; 2022-06-22)
PROC: 5A2204Z Restoration of Cardiac Rhythm, Single (ICD-10-PCS; 2022-06-22)
DX: I48.0 Paroxysmal atrial fibrillation (principal); I48.4 Atypical atrial flutter; I08.1 Rheumatic disorders of both mitral and tricuspid valves; G40.909 Epilepsy, unspecified, not intractable, without status epilepticus; E78.5 Hyperlipidemia, unspecified; I42.2 Other hypertrophic cardiomyopathy; K21.9 Gastro-esophageal reflux disease without esophagitis; Z87.820 Personal history of traumatic brain injury; Z79.01 Long term (current) use of anticoagulants; Z79.82 Long term (current) use of aspirin; Z79.890 Hormone replacement therapy; Z79.899 Other long term (current) drug therapy
CPT/HCPCS: 92960; 93005; 93010; 93312; J2704

== ENCOUNTER 2023-04-01 21:49 | Emergency (ER) | payer MEDICARE ==
[2023-04-01 22:35] LABS: #Eosinphils 0.2 thou/uL (0.0-0.7); #Lymphocytes 1.2 thou/uL (1.20-3.40); #Monocytes 0.7 thou/uL (0.11-0.59); #Neutrophils 3.3 thou/uL (1.40-6.50); %Basophils 0.8 % (0.0-1.0); %Eosinophils 2.8 % (0.0-10.0); %Lymphocytes 22.3 % (21.0-51.0); %Monocytes 12.6 % (0.0-10.0); %Neutrophils 61.4 % (42.0-75.0); Hemoglobin 9.1 g/dL (14.0-18.0); Mean Corpuscular HGB CONC 31.8 g/dL (32.0-36.0); Mean Corpuscular Hemoglobin 28.9 pg (27.0-31.0); Mean Corpuscular Volume 90.9 fl (78.0-98.0); Mean Platelet Volume 7.8 fL (7.4-10.4); Platelet Count 252 10x3/uL (130-400); RBC Distribution Width 13.2 % (11.5-14.5); Red Blood Cell (RBC) Count 3.14 mill/uL (4.70-6.10); White Blood Cell (WBC) Count 5.4 10x3/uL (4.8-10.8)
[2023-04-01] MEDS ORDERED: Furosemide 40 MG/4 ML VIAL ONE (22:52)
[2023-04-01 23:02] LABS: ALT (SGPT) 21 U/L (8-55); AST (SGOT) 25 U/L (5-34); Albumin 3.7 g/dL (3.4-4.8); Alkaline Phosphatase 178 U/L (40-110); Anion Gap 14 mmol/L (10-20); BUN (Urea Nitrogen) 22 mg/dL (8.4-25.7); Bilirubin, Total 0.5 mg/dL (0.2-1.2); Calc. Creatinine Clearance 0 mL/min (70-130); Carbon Dioxide 25 mmol/L (23-31); Chloride 100 mmol/L (98-107); Estimated GFR 43; Globulin 3.3 g/dL (2.4-3.5); Glucose 82 mg/dL (80-115); Sodium 135 mmol/L (136-145)
== END 2023-04-02 00:09 | disposition home or self-care (01) ==
LOC: ERS 21:49
DX: M79.89 Other specified soft tissue disorders (principal); E03.9 Hypothyroidism, unspecified; E78.5 Hyperlipidemia, unspecified; F17.220 Nicotine dependence, chewing tobacco, uncomplicated; Z79.82 Long term (current) use of aspirin; Z79.01 Long term (current) use of anticoagulants
CPT/HCPCS: 36415; 71045; 80053; 83880; 84443; 84484; 85025; 93005; 96374; J1940

== ENCOUNTER 2023-06-02 09:26 | Emergency (ER) | payer MEDICARE ==
[2023-06-02 10:32] LABS: #Basophils 0.1 thou/uL (0.0-0.2); #Eosinphils 0.1 thou/uL (0.0-0.7); #Monocytes 0.8 thou/uL (0.11-0.59); %Basophils 0.8 % (0.0-1.0); %Eosinophils 1.4 % (0.0-10.0); %Lymphocytes 15.2 % (21.0-51.0); %Monocytes 11.3 % (0.0-10.0); %Neutrophils 70.7 % (42.0-75.0); Hemoglobin 8.8 g/dL (14.0-18.0); Mean Corpuscular HGB CONC 31.5 g/dL (32.0-36.0); Mean Corpuscular Hemoglobin 25.6 pg (27.0-31.0); Mean Corpuscular Volume 81.1 fl (78.0-98.0); Mean Platelet Volume 10.5 fL (7.4-10.4); Platelet Count 280 10x3/uL (130-400); RBC Distribution Width 15.9 % (11.5-14.5); Red Blood Cell (RBC) Count 3.44 mill/uL (4.70-6.10); White Blood Cell (WBC) Count 7.1 10x3/uL (4.8-10.8)
[2023-06-02 10:42] LABS: Bacteria/HPF None Seen HPF (None Seen); Bilirubin Negative (Negative); Blood, Urine Negative (Negative); CAUTI Indications for Culture Dysuria,urgency,freq; Clarity Clear (Clear); Glucose, Urine (Dipstick) Normal (Negative); Ketone, Urine Negative (Negative); Leukocyte Negative Leu/uL (Negative); Nitrite Negative (Negative); Protein, Urine (Dipstick) Negative (Neg-Trace); RBC/HPF 0-3 HPF (0-3); Specific Gravity, Urine 1.008 (1.002-1.036); Squamous Epithelial None Seen HPF (0-3); Urobilinogen Normal mg/dL (Less than 2); WBC/HPF None Seen HPF (0-3); pH, Urine 6.5 (5.0-9.0)
[2023-06-02 10:45] LABS: Urine Culture Reflex No No
[2023-06-02 10:54] LABS: ALT (SGPT) 14 U/L (8-55); AST (SGOT) 30 U/L (5-34); Albumin 3.6 g/dL (3.4-4.8); Alkaline Phosphatase 184 U/L (40-110); Anion Gap 15 mmol/L (10-20); BUN (Urea Nitrogen) 13 mg/dL (8.4-25.7); Bilirubin, Total 0.8 mg/dL (0.2-1.2); Calc. Creatinine Clearance 0 mL/min (70-130); Calcium 8.8 mg/dL (7.8-10.44); Carbon Dioxide 27 mmol/L (23-31); Chloride 92 mmol/L (98-107); Estimated GFR 42; Glucose 83 mg/dL (80-115); Potassium 4.3 mmol/L (3.5-5.1); Protein, Total 7.6 g/dL (5.8-8.1); Sodium 130 mmol/L (136-145)
[2023-06-02] MEDS ORDERED: Furosemide 20 MG/2 ML VIAL ONE (11:41)
== END 2023-06-02 12:15 | disposition home or self-care (01) ==
LOC: ERS 09:26
DX: R60.0 Localized edema (principal); N17.9 Acute kidney failure, unspecified; F17.220 Nicotine dependence, chewing tobacco, uncomplicated
CPT/HCPCS: 71045; 80053; 81001; 83880; 85025; 93005; 96374; J1940

== ENCOUNTER 2023-07-12 17:12 | Inpatient (IN) | payer MEDICARE ==
[2023-07-12 18:06] LABS: #Basophils 0.1 thou/uL (0.0-0.2)
[2023-07-12 18:21] LABS: RBC Distribution Width 16.5 % (11.5-14.5)
[2023-07-12 18:23] LABS: #Eosinphils 0.2 thou/uL (0.0-0.7); #Monocytes 0.7 thou/uL (0.11-0.59); #Neutrophils 3.2 thou/uL (1.40-6.50); %Basophils 1.7 % (0.0-1.0); %Eosinophils 4.1 % (0.0-10.0); Hematocrit 25.3 % (42.0-52.0); Hemoglobin 7.4 g/dL (14.0-18.0); Mean Corpuscular HGB CONC 29.2 g/dL (32.0-36.0); Mean Corpuscular Volume 82.1 fl (78.0-98.0); Mean Platelet Volume 10.3 fL (7.4-10.4); Platelet Count 248 10x3/uL (130-400); Red Blood Cell (RBC) Count 3.08 mill/uL (4.70-6.10); White Blood Cell (WBC) Count 5.4 10x3/uL (4.8-10.8)
[2023-07-12 18:45] LABS: INR-International Normal Ratio 1.4; PTT 33.1 sec (22.9-36.1); Prothrombin Time 17.3 sec (12.0-14.7)
[2023-07-12 18:46] LABS: Free T4 (Free Thyroxine) 1.59 ng/dL (0.70-1.48); Thyroid Stimulating Hormone 0.6767 uIU/mL (0.35-4.94)
[2023-07-12 18:46] LABS: Bacteria/HPF None Seen HPF (None Seen); Bilirubin Negative (Negative); Blood, Urine Negative (Negative); CAUTI Indications for Culture Alt mental st,lethar; Clarity Clear (Clear); Glucose, Urine (Dipstick) Normal (Negative); Ketone, Urine Negative (Negative); Leukocyte Negative Leu/uL (Negative); Nitrite Negative (Negative); Protein, Urine (Dipstick) 20 mg/dL (Neg-Trace); RBC/HPF 0-3 HPF (0-3); Specific Gravity, Urine 1.022 (1.002-1.036); Squamous Epithelial None Seen HPF (0-3); WBC/HPF 0-3 HPF (0-3)
[2023-07-12 18:50] LABS: Urine Culture Reflex No No
[2023-07-12 20:03] LABS: ALT (SGPT) 19 U/L (8-55); AST (SGOT) 24 U/L (5-34); Albumin 3.7 g/dL (3.4-4.8); Alkaline Phosphatase 161 U/L (40-110); Anion Gap 14 mmol/L (10-20); BUN (Urea Nitrogen) 11 mg/dL (8.4-25.7); Bilirubin, Total 0.4 mg/dL (0.2-1.2); Calc. Creatinine Clearance 0 mL/min (70-130); Calcium 8.6 mg/dL (7.8-10.44); Carbon Dioxide 25 mmol/L (23-31); Chloride 99 mmol/L (98-107); Estimated GFR 60; Glucose 82 mg/dL (80-115); Magnesium 1.7 mg/dL (1.6-2.6); Potassium 4.1 mmol/L (3.5-5.1); Protein, Total 6.7 g/dL (5.8-8.1); Sodium 134 mmol/L (136-145)
[2023-07-12] MEDS ORDERED: Furosemide 40 MG/4 ML VIAL ONE (20:58)
[2023-07-12 23:42] LABS: #Basophils 0.1 thou/uL (0.0-0.2); #Eosinphils 0.3 thou/uL (0.0-0.7); #Monocytes 0.8 thou/uL (0.11-0.59); #Neutrophils 4.2 thou/uL (1.40-6.50); %Basophils 0.7 % (0.0-1.0); %Eosinophils 3.8 % (0.0-10.0); %Lymphocytes 21.4 % (21.0-51.0); %Monocytes 11.5 % (0.0-10.0); %Neutrophils 62.5 % (42.0-75.0); Hematocrit 24.7 % (42.0-52.0); Hemoglobin 7.4 g/dL (14.0-18.0); Mean Corpuscular Hemoglobin 23.7 pg (27.0-31.0); Mean Platelet Volume 10.2 fL (7.4-10.4); Platelet Count 270 10x3/uL (130-400); RBC Distribution Width 16.4 % (11.5-14.5); Red Blood Cell (RBC) Count 3.12 mill/uL (4.70-6.10); White Blood Cell (WBC) Count 6.8 10x3/uL (4.8-10.8)
[2023-07-12 23:58] LABS: Mean Corpuscular Volume 79.2 fl (78.0-98.0)
[2023-07-13 03:23] VITALS: BMI 27.1
[2023-07-13 05:10] LABS: #Basophils 0.1 thou/uL (0.0-0.2); #Eosinphils 0.2 thou/uL (0.0-0.7); #Monocytes 0.8 thou/uL (0.11-0.59); #Neutrophils 3.9 thou/uL (1.40-6.50); %Eosinophils 3.3 % (0.0-10.0); %Lymphocytes 18.5 % (21.0-51.0); %Monocytes 12.5 % (0.0-10.0); %Neutrophils 64.5 % (42.0-75.0); Hematocrit 24.6 % (42.0-52.0); Hemoglobin 7.4 g/dL (14.0-18.0); Mean Corpuscular HGB CONC 30.1 g/dL (32.0-36.0); Mean Corpuscular Hemoglobin 23.5 pg (27.0-31.0); Mean Corpuscular Volume 78.1 fl (78.0-98.0); Mean Platelet Volume 10.5 fL (7.4-10.4); Platelet Count 269 10x3/uL (130-400); RBC Distribution Width 16.3 % (11.5-14.5); Red Blood Cell (RBC) Count 3.15 mill/uL (4.70-6.10); White Blood Cell (WBC) Count 6.1 10x3/uL (4.8-10.8)
[2023-07-13 05:31] LABS: Anion Gap 13 mmol/L (10-20); BUN (Urea Nitrogen) 11 mg/dL (8.4-25.7); Calc. Creatinine Clearance 80 mL/min (70-130); Calcium 8.8 mg/dL (7.8-10.44); Carbon Dioxide 27 mmol/L (23-31); Chloride 97 mmol/L (98-107); Estimated GFR 62; Glucose 81 mg/dL (80-115); Potassium 3.7 mmol/L (3.5-5.1); Sodium 133 mmol/L (136-145)
[2023-07-13] MEDS ORDERED: Furosemide 20 MG/2 ML VIAL SLOW IVP SCH ×2 (06:00→09:00)
[2023-07-13] MEDS: Atorvastatin Calcium 10 MG TAB PO SCH (08:54)
[2023-07-13] MEDS: Folic Acid 1 MG TAB PO SCH (08:54)
[2023-07-13] MEDS: Cyanocobalamin (Vitamin B-12) 1,000 MCG TAB PO SCH (08:54)
[2023-07-13] MEDS: Amiodarone 200 MG TAB PO SCH (08:54)
[2023-07-13] MEDS: levETIRAcetam 500 MG TAB PO SCH ×2 (08:56→21:40)
[2023-07-13] MEDS: Levothyroxine Sodium 75 MCG TAB PO SCH (08:56)
[2023-07-13] MEDS: Apixaban 5 MG TAB PO SCH ×2 (08:56→21:42)
[2023-07-13] MEDS: Gabapentin 300 MG CAP PO SCH ×3 (08:57→21:39)
[2023-07-13] MEDS: OXcarbazepine 300 MG TAB PO SCH ×2 (08:58→21:40)
[2023-07-13] MEDS: Aspirin 81 mg Enteric Coated Tablet PO SCH (08:58)
[2023-07-13] MEDS ORDERED: Furosemide 40 MG/4 ML VIAL SLOW IVP SCH (09:00)
[2023-07-13] MEDS ORDERED: Gabapentin 300 MG CAP PO SCH (09:00)
[2023-07-13 09:26] LABS: Iron 29 ug/dL (65-175); Iron Binding Capacity, Total 353 mcg/dL (261-462)
[2023-07-13] MEDS ORDERED: Iron, Sodium Ferric Gluconate 250 MG in Sodium Chloride 0.9% 250 ML 250 ML IVPB SCH (17:00)
[2023-07-13] MEDS ORDERED: Melatonin 3 MG TAB PO SCH (21:00)
[2023-07-14 05:45] LABS: #Basophils 0.1 thou/uL (0.0-0.2); #Eosinphils 0.1 thou/uL (0.0-0.7); #Neutrophils 5.3 thou/uL (1.40-6.50); %Basophils 1.1 % (0.0-1.0); %Eosinophils 1.3 % (0.0-10.0); %Neutrophils 69.2 % (42.0-75.0); Hematocrit 27.2 % (42.0-52.0); Hemoglobin 8.2 g/dL (14.0-18.0); Mean Corpuscular HGB CONC 30.1 g/dL (32.0-36.0); Mean Corpuscular Hemoglobin 23.7 pg (27.0-31.0); Mean Corpuscular Volume 78.6 fl (78.0-98.0); Platelet Count 298 10x3/uL (130-400); RBC Distribution Width 16.4 % (11.5-14.5); Red Blood Cell (RBC) Count 3.46 mill/uL (4.70-6.10); White Blood Cell (WBC) Count 7.6 10x3/uL (4.8-10.8)
[2023-07-14 07:12] LABS: Anion Gap 14 mmol/L (10-20); BUN (Urea Nitrogen) 12 mg/dL (8.4-25.7); Calc. Creatinine Clearance 74 mL/min (70-130); Calcium 8.9 mg/dL (7.8-10.44); Carbon Dioxide 25 mmol/L (23-31); Chloride 96 mmol/L (98-107); Estimated GFR 57; Glucose 92 mg/dL (80-115); Potassium 3.6 mmol/L (3.5-5.1); Sodium 131 mmol/L (136-145)
[2023-07-14] MEDS: Aspirin 81 mg Enteric Coated Tablet PO SCH (09:19)
[2023-07-14] MEDS: Folic Acid 1 MG TAB PO SCH (09:19)
[2023-07-14] MEDS: Gabapentin 300 MG CAP PO SCH ×2 (09:19→16:05)
[2023-07-14] MEDS: levETIRAcetam 500 MG TAB PO SCH (09:20)
[2023-07-14] MEDS: Amiodarone 200 MG TAB PO SCH (09:20)
[2023-07-14] MEDS: Apixaban 5 MG TAB PO SCH (09:20)
[2023-07-14] MEDS: Atorvastatin Calcium 10 MG TAB PO SCH (09:20)
[2023-07-14] MEDS: Levothyroxine Sodium 75 MCG TAB PO SCH (09:20)
[2023-07-14] MEDS: OXcarbazepine 300 MG TAB PO SCH (09:20)
[2023-07-14] MEDS: Cyanocobalamin (Vitamin B-12) 1,000 MCG TAB PO SCH (09:23)
[2023-07-14 16:26] VITALS: BP 120/73; TEMP 98.4
== END 2023-07-14 17:20 | disposition home health service (06) | DRG 291 ==
LOC: ERS 17:12 → 2SE 21:17 → OBSVTOIN 21:17
PROVIDERS: ADMIT Family Medicine; ATTEND Family Medicine
DX: I50.23 Acute on chronic systolic (congestive) heart failure (principal); J96.01 Acute respiratory failure with hypoxia; I48.0 Paroxysmal atrial fibrillation; G40.909 Epilepsy, unspecified, not intractable, without status epilepticus; E03.9 Hypothyroidism, unspecified; E78.5 Hyperlipidemia, unspecified; F17.290 Nicotine dependence, other tobacco product, uncomplicated; N18.2 Chronic kidney disease, stage 2 (mild); D63.1 Anemia in chronic kidney disease; I08.1 Rheumatic disorders of both mitral and tricuspid valves; K59.09 Other constipation; I87.8 Other specified disorders of veins; D50.9 Iron deficiency anemia, unspecified; Z20.822 Contact with and (suspected) exposure to COVID-19; Z79.82 Long term (current) use of aspirin; Z79.899 Other long term (current) drug therapy; Z79.01 Long term (current) use of anticoagulants; Z98.890 Other specified postprocedural states
CPT/HCPCS: 36415; 71045; 80048; 80053; 81001; 82728; 83540; 83550; 83605; 83735; 83880; 84439; 84443; 85025; 85610; 85730; 86850; 86900; 86901; 87635; 93005; 96374; 96375; 96376; G0378; J1940; J2916; J7050

== ENCOUNTER 2023-11-26 18:20 | Inpatient (IN) | payer MEDICARE ==
[~2023-11-26 18:20] MED LIST: Iopamidol-370 76% 500 ML MDV (1 ML CHARGE) ONE
[2023-11-26] MEDS ORDERED: Boostrix 0.5 ML (Tdap) VIAL (>/=7 yrs of age) ONE (18:49)
[2023-11-26] MEDS ORDERED: Morphine 2 MG/ML VIAL ONE (18:59)
[2023-11-26 19:00] LABS: #Eosinphils 0.1 thou/uL (0.0-0.7); #Monocytes 0.6 thou/uL (0.11-0.59); #Neutrophils 6.4 thou/uL (1.40-6.50); %Basophils 0.4 % (0.0-1.0); %Eosinophils 0.6 % (0.0-10.0); %Lymphocytes 7.9 % (21.0-51.0); %Monocytes 7.7 % (0.0-10.0); %Neutrophils 82.4 % (42.0-75.0); Hematocrit 39.6 % (42.0-52.0); Hemoglobin 12.5 g/dL (14.0-18.0); Mean Corpuscular HGB CONC 31.6 g/dL (32.0-36.0); Mean Corpuscular Hemoglobin 27.4 pg (27.0-31.0); Mean Corpuscular Volume 86.8 fl (78.0-98.0); Mean Platelet Volume 10.8 fL (7.4-10.4); Platelet Count 208 10x3/uL (130-400); RBC Distribution Width 15.2 % (11.5-14.5); Red Blood Cell (RBC) Count 4.56 mill/uL (4.70-6.10); White Blood Cell (WBC) Count 7.8 10x3/uL (4.8-10.8)
[2023-11-26 19:25] LABS: ALT (SGPT) 34 U/L (8-55); AST (SGOT) 64 U/L (5-34); Albumin 3.8 g/dL (3.4-4.8); Alkaline Phosphatase 230 U/L (40-110); Anion Gap 13 mmol/L (10-20); BUN (Urea Nitrogen) 11 mg/dL (8.4-25.7); Bilirubin, Total 1.3 mg/dL (0.2-1.2); Calc. Creatinine Clearance 0 mL/min (70-130); Calcium 8.6 mg/dL (7.8-10.44); Carbon Dioxide 30 mmol/L (23-31); Chloride 89 mmol/L (98-107); Estimated GFR 75; Globulin 3.7 g/dL (2.4-3.5); Glucose 109 mg/dL (80-115); Magnesium 1.7 mg/dL (1.6-2.6); Potassium 4.6 mmol/L (3.5-5.1); Protein, Total 7.5 g/dL (5.8-8.1); Sodium 127 mmol/L (136-145)
[2023-11-26 19:27] LABS: Troponin I 0.034 ng/mL (< 0.028)
[2023-11-26] MEDS ORDERED: Ketamine In 0.9 % NaCl 50 MG/5 ML SYRINGE ONE (20:29)
[2023-11-26] MEDS ORDERED: Morphine 4 MG/ML VIAL SLOW IVP PRN (22:04)
[2023-11-26] MEDS ORDERED: Acetaminophen 325 MG TAB PO PRN (22:15)
[2023-11-26] MEDS ORDERED: Ondansetron PF 4 MG/2 ML Vial IVP PRN (22:15)
[2023-11-26] MEDS ORDERED: Ondansetron ODT 4 MG TAB SL PRN (22:15)
[2023-11-26] MEDS ORDERED: Ipratropium/Albuterol 3 ML NEB NEB PRN (23:26)
[2023-11-26] MEDS ORDERED: Electrolyte Replacement Protocol IVPB SCH (23:26)
[2023-11-26 23:48] LABS: Troponin I 0.041 ng/mL (< 0.028)
[2023-11-27] MEDS: Sodium Chloride 0.9% 1,000 ML IV SCH ×3 (00:08→20:21)
[2023-11-27] MEDS ORDERED: Magnesium 2 GM/50 ML(in water) 2 GM in Premix 1 BAG IVPB SCH (01:00)
[2023-11-27 01:42] LABS: Troponin I 0.037 ng/mL (< 0.028)
[2023-11-27] MEDS ORDERED: NOREPINEPHRINE 8 MG/250 ML-D5W 250 ML IVPB SCH (01:45)
[2023-11-27] MEDS: Ipratropium/Albuterol 3 ML NEB NEB SCH ×5 (02:24→22:36)
[2023-11-27 04:21] LABS: #Neutrophils 7.1 thou/uL (1.40-6.50); %Basophils 0.2 % (0.0-1.0); %Lymphocytes 5.2 % (21.0-51.0); %Monocytes 11.4 % (0.0-10.0); %Neutrophils 82.9 % (42.0-75.0); Mean Corpuscular HGB CONC 32.5 g/dL (32.0-36.0); Mean Corpuscular Hemoglobin 28.1 pg (27.0-31.0); Mean Corpuscular Volume 86.4 fl (78.0-98.0); Mean Platelet Volume 10.8 fL (7.4-10.4); Platelet Count 188 10x3/uL (130-400); RBC Distribution Width 15.3 % (11.5-14.5); Red Blood Cell (RBC) Count 3.38 mill/uL (4.70-6.10); White Blood Cell (WBC) Count 8.6 10x3/uL (4.8-10.8)
[2023-11-27 04:22] LABS: Hematocrit 29.2 % (42.0-52.0); Hemoglobin 9.5 g/dL (14.0-18.0)
[2023-11-27 04:48] LABS: ALT (SGPT) 34 U/L (8-55); AST (SGOT) 69 U/L (5-34); Alkaline Phosphatase 202 U/L (40-110); Anion Gap 9 mmol/L (10-20); BUN (Urea Nitrogen) 11 mg/dL (8.4-25.7); Bilirubin, Total 1.2 mg/dL (0.2-1.2); Calc. Creatinine Clearance 82 mL/min (70-130); Carbon Dioxide 31 mmol/L (23-31); Chloride 91 mmol/L (98-107); Estimated GFR 69; Globulin 2.6 g/dL (2.4-3.5); Glucose 106 mg/dL (80-115); Potassium 4.3 mmol/L (3.5-5.1); Protein, Total 5.6 g/dL (5.8-8.1); Sodium 127 mmol/L (136-145)
[2023-11-27] MEDS: CEFAZOLIN 2 GM in Sodium Chloride 0.9% 100 ML IVPB SCH ×3 (06:05→21:15)
[2023-11-27] MEDS: Ketorolac Tromethamine 30 MG (1 mL) VIAL IVP SCH ×5 (06:06→18:03)
[2023-11-27] MEDS: Levothyroxine Sodium 75 MCG TAB PO SCH (06:06)
[2023-11-27] MEDS ORDERED: Amiodarone 200 MG TAB PO SCH (09:00)
[2023-11-27] MEDS ORDERED: OXcarbazepine 300 MG TAB PO SCH (09:00)
[2023-11-27] MEDS ORDERED: CEFAZOLIN 2 GM in Sodium Chloride 0.9% 100 ML IVPB SCH (09:00)
[2023-11-27] MEDS ORDERED: levETIRAcetam 500 MG TAB PO SCH (09:00)
[2023-11-27] MEDS ORDERED: Atorvastatin Calcium 10 MG TAB PO SCH (09:00)
[2023-11-27] MEDS ORDERED: Gabapentin 300 MG CAP PO SCH ×2 (09:00)
[2023-11-27] MEDS ORDERED: levETIRAcetam 500 MG (5 mL) VIAL SLOW IVP SCH ×2 (09:00→12:00)
[2023-11-27] MEDS ORDERED: Aspirin 81 mg Enteric Coated Tablet PO SCH (09:00)
[2023-11-27] MEDS: Famotidine/PF 20 mg/2ml Vial SLOW IVP SCH ×2 (09:47→21:15)
[2023-11-27] MEDS: Folic Acid 1 MG TAB PO SCH (09:47)
[2023-11-27] MEDS: Cyanocobalamin (Vitamin B-12) 1,000 MCG TAB PO SCH (09:47)
[2023-11-27] MEDS: Furosemide 20 MG TAB PO SCH (09:48)
[2023-11-27] MEDS ORDERED: Lorazepam 2 MG/ML VIAL SLOW IVP PRN (12:25)
[2023-11-27] MEDS ORDERED: Lorazepam 2 MG/ML VIAL SLOW IVP SCH (15:15)
[2023-11-27 17:02] LABS: Hematocrit 33.8 % (42.0-52.0); Hemoglobin 10.9 g/dL (14.0-18.0); Mean Corpuscular HGB CONC 32.2 g/dL (32.0-36.0); Mean Corpuscular Hemoglobin 28.3 pg (27.0-31.0); Mean Corpuscular Volume 87.8 fl (78.0-98.0); Mean Platelet Volume 11.4 fL (7.4-10.4); Platelet Count 162 10x3/uL (130-400); RBC Distribution Width 15.1 % (11.5-14.5); Red Blood Cell (RBC) Count 3.85 mill/uL (4.70-6.10)
[2023-11-27] MEDS ORDERED: Dexmedetomidine In 0.9 % NaCl 100 ML IVPB SCH (18:00)
[2023-11-27] MEDS: Melatonin 3 MG TAB PO SCH (21:15)
[2023-11-27] MEDS: levETIRAcetam 500 MG (5 mL) VIAL SLOW IVP SCH (21:15)
[2023-11-27] MEDS: Dexmedetomidine 400 MCG, Admixture Fee 1 EACH in Sodium Chloride 0.9% 96 ML IVPB SCH (21:18)
[2023-11-28] MEDS: Ketorolac Tromethamine 30 MG (1 mL) VIAL IVP SCH ×4 (00:20→17:33)
[2023-11-28 04:27] LABS: #Monocytes 0.7 thou/uL (0.11-0.59); #Neutrophils 5.6 thou/uL (1.40-6.50); %Basophils 0.3 % (0.0-1.0); %Eosinophils 0.3 % (0.0-10.0); %Lymphocytes 5.5 % (21.0-51.0); %Monocytes 10.3 % (0.0-10.0); %Neutrophils 83.2 % (42.0-75.0); Hematocrit 30.2 % (42.0-52.0); Mean Corpuscular HGB CONC 33.1 g/dL (32.0-36.0); Mean Corpuscular Hemoglobin 28.7 pg (27.0-31.0); Mean Corpuscular Volume 86.5 fl (78.0-98.0); Mean Platelet Volume 10.8 fL (7.4-10.4); Platelet Count 136 10x3/uL (130-400); RBC Distribution Width 15.2 % (11.5-14.5); Red Blood Cell (RBC) Count 3.49 mill/uL (4.70-6.10); White Blood Cell (WBC) Count 6.7 10x3/uL (4.8-10.8)
[2023-11-28 04:40] LABS: ALT (SGPT) 29 U/L (8-55); AST (SGOT) 68 U/L (5-34); Albumin 2.7 g/dL (3.4-4.8); Alkaline Phosphatase 167 U/L (40-110); Anion Gap 8 mmol/L (10-20); BUN (Urea Nitrogen) 12 mg/dL (8.4-25.7); Bilirubin, Total 1.3 mg/dL (0.2-1.2); Calc. Creatinine Clearance 117 mL/min (70-130); Calcium 7.9 mg/dL (7.8-10.44); Carbon Dioxide 30 mmol/L (23-31); Chloride 93 mmol/L (98-107); Estimated GFR 96; Globulin 2.7 g/dL (2.4-3.5); Glucose 80 mg/dL (80-115); Potassium 4.1 mmol/L (3.5-5.1); Protein, Total 5.4 g/dL (5.8-8.1); Sodium 127 mmol/L (136-145)
[2023-11-28] MEDS: CEFAZOLIN 2 GM in Sodium Chloride 0.9% 100 ML IVPB SCH ×3 (05:53→21:42)
[2023-11-28] MEDS: Morphine 2 MG/ML VIAL SLOW IVP PRN ×3 (05:53→19:32)
[2023-11-28] MEDS: Levothyroxine Sodium 75 MCG TAB PO SCH (06:25)
[2023-11-28] MEDS: Dexmedetomidine 400 MCG, Admixture Fee 1 EACH in Sodium Chloride 0.9% 96 ML IVPB SCH (06:42)
[2023-11-28] MEDS: Ipratropium/Albuterol 3 ML NEB NEB SCH ×4 (07:37→22:49)
[2023-11-28] MEDS: Famotidine/PF 20 mg/2ml Vial SLOW IVP SCH ×2 (08:49→21:33)
[2023-11-28] MEDS: levETIRAcetam 500 MG (5 mL) VIAL SLOW IVP SCH ×2 (08:49→21:34)
[2023-11-28] MEDS: Folic Acid 1 MG TAB PO SCH (09:07)
[2023-11-28] MEDS: Cyanocobalamin (Vitamin B-12) 1,000 MCG TAB PO SCH (09:07)
[2023-11-28] MEDS ORDERED: Lidocaine 1% PF 5 ML VIAL ONE (09:30)
[2023-11-28] MEDS ORDERED: PROPOFOL 20 ML ONE (09:30)
[2023-11-28] MEDS ORDERED: fentaNYL 50 mcg/mL 1 mL Vial ONE (09:30)
[2023-11-28] MEDS ORDERED: ePHEDrine Sulfate 50 MG/10 ML VIAL ONE (10:18)
[2023-11-28] MEDS ORDERED: CEFAZOLIN 1 GM VIAL ONE (10:24)
[2023-11-28] MEDS ORDERED: PHENYLEPHRINE-NS 100 MCG/ML 10 ML SYRINGE ONE (10:48)
[2023-11-28] MEDS ORDERED: SUGAMMADEX SODIUM 200 MG/2 ML VIAL ONE ×2 (11:02→11:14)
[2023-11-28] MEDS ORDERED: Ondansetron PF 4 MG/2 ML Vial ONE (11:02)
[2023-11-28] MEDS: Sodium Chloride 0.9% 1,000 ML IV SCH (15:07)
[2023-11-28] MEDS ORDERED: Albumin 25% 25 GM (100 mL) BOT IVPB SCH ×2 (16:00→19:00)
[2023-11-28] MEDS ORDERED: Sodium Chloride 0.9% 500 ML IV SCH (17:00)
[2023-11-28] MEDS: Furosemide 20 MG TAB PO SCH (21:33)
[2023-11-28] MEDS: Melatonin 3 MG TAB PO SCH (21:33)
[2023-11-29] MEDS: Ketorolac Tromethamine 30 MG (1 mL) VIAL IVP SCH ×4 (00:15→18:04)
[2023-11-29] MEDS: Morphine 2 MG/ML VIAL SLOW IVP PRN ×7 (01:20→23:27)
[2023-11-29 05:07] LABS: ALT (SGPT) 18 U/L (8-55); AST (SGOT) 63 U/L (5-34); Albumin 2.6 g/dL (3.4-4.8); Alkaline Phosphatase 121 U/L (40-110); Anion Gap 10 mmol/L (10-20); BUN (Urea Nitrogen) 16 mg/dL (8.4-25.7); Bilirubin, Total 0.9 mg/dL (0.2-1.2); Calc. Creatinine Clearance 109 mL/min (70-130); Calcium 7.7 mg/dL (7.8-10.44); Carbon Dioxide 28 mmol/L (23-31); Chloride 98 mmol/L (98-107); Estimated GFR 94; Globulin 2.1 g/dL (2.4-3.5); Glucose 82 mg/dL (80-115); Potassium 4.2 mmol/L (3.5-5.1); Protein, Total 4.7 g/dL (5.8-8.1); Sodium 132 mmol/L (136-145)
[2023-11-29] MEDS: Sodium Chloride 0.9% 1,000 ML IV SCH ×2 (05:13→18:44)
[2023-11-29] MEDS: CEFAZOLIN 2 GM in Sodium Chloride 0.9% 100 ML IVPB SCH ×3 (05:35→22:23)
[2023-11-29] MEDS: Levothyroxine Sodium 75 MCG TAB PO SCH (05:37)
[2023-11-29 06:05] LABS: #Monocytes 0.9 thou/uL (0.11-0.59); #Neutrophils 4.6 thou/uL (1.40-6.50); %Basophils 0.7 % (0.0-1.0); %Eosinophils 0.3 % (0.0-10.0); %Lymphocytes 6.4 % (21.0-51.0); %Monocytes 14.9 % (0.0-10.0); %Neutrophils 77.4 % (42.0-75.0); Mean Corpuscular HGB CONC 32.5 g/dL (32.0-36.0); Mean Corpuscular Hemoglobin 28.8 pg (27.0-31.0); Mean Corpuscular Volume 88.5 fl (78.0-98.0); Mean Platelet Volume 11.5 fL (7.4-10.4); RBC Distribution Width 15.3 % (11.5-14.5); Red Blood Cell (RBC) Count 2.26 mill/uL (4.70-6.10)
[2023-11-29] MEDS: Ipratropium/Albuterol 3 ML NEB NEB SCH ×4 (06:41→22:22)
[2023-11-29 06:43] LABS: Hemoglobin 6.5 g/dL (14.0-18.0); Platelet Count 122 10x3/uL (130-400)
[2023-11-29] MEDS: levETIRAcetam 500 MG (5 mL) VIAL SLOW IVP SCH ×2 (08:54→21:11)
[2023-11-29] MEDS: Furosemide 20 MG TAB PO SCH ×3 (08:54→21:00)
[2023-11-29] MEDS: Folic Acid 1 MG TAB PO SCH ×2 (08:54→09:00)
[2023-11-29] MEDS: Cyanocobalamin (Vitamin B-12) 1,000 MCG TAB PO SCH ×2 (08:54→09:00)
[2023-11-29] MEDS: Famotidine/PF 20 mg/2ml Vial SLOW IVP SCH ×2 (08:54→21:11)
[2023-11-29 10:41] LABS: Hematocrit 21.1 % (42.0-52.0); Hemoglobin 6.9 g/dL (14.0-18.0)
[2023-11-29] MEDS: Melatonin 3 MG TAB PO SCH (21:00)
[2023-11-30] MEDS: Ketorolac Tromethamine 30 MG (1 mL) VIAL IVP SCH ×4 (00:10→18:05)
[2023-11-30] MEDS: Morphine 2 MG/ML VIAL SLOW IVP PRN ×5 (02:03→18:06)
[2023-11-30 05:11] LABS: #Eosinphils 0.1 thou/uL (0.0-0.7); #Monocytes 0.8 thou/uL (0.11-0.59); %Basophils 0.8 % (0.0-1.0); %Eosinophils 0.9 % (0.0-10.0); %Lymphocytes 7.9 % (21.0-51.0); %Monocytes 14.8 % (0.0-10.0); %Neutrophils 74.8 % (42.0-75.0); Hematocrit 24.8 % (42.0-52.0); Hemoglobin 8.2 g/dL (14.0-18.0); Mean Corpuscular HGB CONC 33.1 g/dL (32.0-36.0); Mean Corpuscular Hemoglobin 29.3 pg (27.0-31.0); Mean Corpuscular Volume 88.6 fl (78.0-98.0); Mean Platelet Volume 11.8 fL (7.4-10.4); Platelet Count 125 10x3/uL (130-400); RBC Distribution Width 15.2 % (11.5-14.5); White Blood Cell (WBC) Count 5.3 10x3/uL (4.8-10.8)
[2023-11-30] MEDS: CEFAZOLIN 2 GM in Sodium Chloride 0.9% 100 ML IVPB SCH ×3 (05:42→21:58)
[2023-11-30 06:04] LABS: ALT (SGPT) 10 U/L (8-55); AST (SGOT) 55 U/L (5-34); Albumin 2.7 g/dL (3.4-4.8); Alkaline Phosphatase 119 U/L (40-110); Anion Gap 10 mmol/L (10-20); BUN (Urea Nitrogen) 16 mg/dL (8.4-25.7); Bilirubin, Total 1.3 mg/dL (0.2-1.2); Calc. Creatinine Clearance 117 mL/min (70-130); Calcium 7.9 mg/dL (7.8-10.44); Carbon Dioxide 27 mmol/L (23-31); Chloride 100 mmol/L (98-107); Estimated GFR 95; Globulin 2.2 g/dL (2.4-3.5); Glucose 76 mg/dL (80-115); Potassium 4.4 mmol/L (3.5-5.1); Protein, Total 4.9 g/dL (5.8-8.1); Sodium 133 mmol/L (136-145)
[2023-11-30] MEDS: Levothyroxine Sodium 75 MCG TAB PO SCH (07:00)
[2023-11-30] MEDS: Ipratropium/Albuterol 3 ML NEB NEB SCH ×4 (07:15→23:41)
[2023-11-30] MEDS ORDERED: Sodium Chloride 3% (15 ML) NEB NEB SCH ×2 (09:15→14:00)
[2023-11-30] MEDS ORDERED: Polyethylene Glycol 3350 17 GM Packet PO SCH (09:30)
[2023-11-30] MEDS: Famotidine/PF 20 mg/2ml Vial SLOW IVP SCH ×2 (09:48→20:32)
[2023-11-30] MEDS: levETIRAcetam 500 MG (5 mL) VIAL SLOW IVP SCH ×2 (09:48→20:32)
[2023-11-30] MEDS: Furosemide 20 MG TAB PO SCH (09:48)
[2023-11-30] MEDS: Cyanocobalamin (Vitamin B-12) 1,000 MCG TAB PO SCH (09:49)
[2023-11-30] MEDS: Folic Acid 1 MG TAB PO SCH (09:49)
[2023-11-30] MEDS: Dexmedetomidine 400 MCG, Admixture Fee 1 EACH in Sodium Chloride 0.9% 96 ML IVPB SCH ×2 (10:06→19:07)
[2023-11-30] MEDS: Sodium Chloride 3% (15 ML) NEB NEB SCH ×2 (13:33→19:32)
[2023-11-30] MEDS: Furosemide 40 MG (4 mL) VIAL SLOW IVP SCH (13:55)
[2023-11-30] MEDS ORDERED: fentaNYL 25 mcg Patch TD SCH (14:30)
[2023-11-30] MEDS: Acetylcysteine (MUCOMYST) 200 MG/ML (10 ML VIAL) NEB SCH ×2 (19:27→23:40)
[2023-11-30] MEDS: Melatonin 3 MG TAB PO SCH (20:33)
[2023-11-30] MEDS: Senokot S 8.6-50 MG TAB PO SCH (20:33)
[2023-11-30] MEDS ORDERED: Glucagon 1 MG/ML KIT IM PRN (23:32)
[2023-11-30] MEDS ORDERED: Dextrose 50% Abboject 50 ML SYRINGE SLOW IVP PRN (23:32)
[2023-11-30] MEDS ORDERED: Dextrose 5% in Water 1,000 ML IV PRN (23:32)
[2023-11-30 23:36] LABS: Actual Bicarbonate (HCO3a) 27.8 mEq/L (22-28); CO2 Tension 55.3 mmHg (35.0-45.0); Calcium, Ionized (arterial) 1.16 mmol/L (1.12-1.30); Carboxyhemoglobin (COHb) 0.3 gm% (0.0-3.0); Hematocrit-ABG 31 % (42.0-52.0); Hemoglobin (Hb) 10.6 g/dL (14.0-18.0); O2 Tension (PaO2), arterial 99.7 mmHg (> 80.0); Potassium - ABG Lab 4.25 mmol/L (3.70-5.30); pH, Arterial 7.319 (7.35-7.45)
[2023-11-30 23:40] LABS: ALV-art Gradient 294.625 mmHg (0-20); Puncture Site LRA
[2023-12-01] MEDS: Sodium Chloride 3% (15 ML) NEB NEB SCH ×5 (02:29→23:38)
[2023-12-01 04:05] LABS: #Eosinphils 0.1 thou/uL (0.0-0.7); #Monocytes 0.8 thou/uL (0.11-0.59); #Neutrophils 6.1 thou/uL (1.40-6.50); %Basophils 0.5 % (0.0-1.0); %Eosinophils 0.8 % (0.0-10.0); %Lymphocytes 4.6 % (21.0-51.0); %Monocytes 11.3 % (0.0-10.0); %Neutrophils 82.1 % (42.0-75.0); Hematocrit 27.2 % (42.0-52.0); Hemoglobin 8.7 g/dL (14.0-18.0); Mean Corpuscular Hemoglobin 28.7 pg (27.0-31.0); Mean Corpuscular Volume 89.8 fl (78.0-98.0); Platelet Count 152 10x3/uL (130-400); RBC Distribution Width 15.5 % (11.5-14.5); Red Blood Cell (RBC) Count 3.03 mill/uL (4.70-6.10); White Blood Cell (WBC) Count 7.5 10x3/uL (4.8-10.8)
[2023-12-01 04:29] LABS: ALT (SGPT) 10 U/L (8-55); AST (SGOT) 52 U/L (5-34); Albumin 2.9 g/dL (3.4-4.8); Alkaline Phosphatase 130 U/L (40-110); Anion Gap 14 mmol/L (10-20); BUN (Urea Nitrogen) 19 mg/dL (8.4-25.7); Bilirubin, Total 1.1 mg/dL (0.2-1.2); Calc. Creatinine Clearance 102 mL/min (70-130); Calcium 8.2 mg/dL (7.8-10.44); Carbon Dioxide 27 mmol/L (23-31); Chloride 99 mmol/L (98-107); Estimated GFR 85; Globulin 2.7 g/dL (2.4-3.5); Glucose 83 mg/dL (80-115); Potassium 4.4 mmol/L (3.5-5.1); Protein, Total 5.6 g/dL (5.8-8.1); Sodium 136 mmol/L (136-145)
[2023-12-01] MEDS: Ketorolac Tromethamine 30 MG (1 mL) VIAL IVP SCH ×5 (05:33→23:30)
[2023-12-01] MEDS: CEFAZOLIN 2 GM in Sodium Chloride 0.9% 100 ML IVPB SCH ×2 (05:34→13:51)
[2023-12-01] MEDS: Furosemide 40 MG (4 mL) VIAL SLOW IVP SCH ×3 (05:34→14:34)
[2023-12-01] MEDS: Levothyroxine Sodium 75 MCG TAB PO SCH (06:40)
[2023-12-01] MEDS: Dexmedetomidine 400 MCG, Admixture Fee 1 EACH in Sodium Chloride 0.9% 96 ML IVPB SCH ×2 (06:46→15:13)
[2023-12-01] MEDS: Acetylcysteine (MUCOMYST) 200 MG/ML (10 ML VIAL) NEB SCH ×4 (06:59→23:38)
[2023-12-01] MEDS: Ipratropium/Albuterol 3 ML NEB NEB SCH ×4 (06:59→23:38)
[2023-12-01] MEDS: levETIRAcetam 500 MG (5 mL) VIAL SLOW IVP SCH ×2 (08:00→22:09)
[2023-12-01] MEDS: Famotidine/PF 20 mg/2ml Vial SLOW IVP SCH ×2 (08:00→22:09)
[2023-12-01] MEDS: Cyanocobalamin (Vitamin B-12) 1,000 MCG TAB PO SCH (08:00)
[2023-12-01] MEDS: Folic Acid 1 MG TAB PO SCH (08:00)
[2023-12-01] MEDS: Polyethylene Glycol 3350 17 GM Packet PO SCH (08:01)
[2023-12-01] MEDS: Senokot S 8.6-50 MG TAB PO SCH ×2 (08:01→19:42)
[2023-12-01] MEDS: Morphine 2 MG/ML VIAL SLOW IVP PRN ×2 (10:10→13:25)
[2023-12-01] MEDS: Melatonin 3 MG TAB PO SCH (19:42)
[2023-12-02 05:36] LABS: #Eosinphils 0.1 thou/uL (0.0-0.7); #Monocytes 0.8 thou/uL (0.11-0.59); #Neutrophils 4.9 thou/uL (1.40-6.50); %Basophils 0.6 % (0.0-1.0); %Lymphocytes 8.2 % (21.0-51.0); %Monocytes 13.1 % (0.0-10.0); %Neutrophils 75.6 % (42.0-75.0); Hematocrit 28.5 % (42.0-52.0); Hemoglobin 9.2 g/dL (14.0-18.0); Mean Corpuscular HGB CONC 32.3 g/dL (32.0-36.0); Mean Corpuscular Hemoglobin 29.4 pg (27.0-31.0); Mean Corpuscular Volume 91.1 fl (78.0-98.0); Mean Platelet Volume 11.4 fL (7.4-10.4); Platelet Count 168 10x3/uL (130-400); RBC Distribution Width 15.5 % (11.5-14.5); Red Blood Cell (RBC) Count 3.13 mill/uL (4.70-6.10); White Blood Cell (WBC) Count 6.4 10x3/uL (4.8-10.8)
[2023-12-02] MEDS: Levothyroxine Sodium 75 MCG TAB PO SCH (05:46)
[2023-12-02] MEDS: Furosemide 40 MG (4 mL) VIAL SLOW IVP SCH ×2 (05:49→14:00)
[2023-12-02 06:04] LABS: ALT (SGPT) Less than 7 U/L (8-55); AST (SGOT) 47 U/L (5-34); Alkaline Phosphatase 132 U/L (40-110); Anion Gap 13 mmol/L (10-20); BUN (Urea Nitrogen) 20 mg/dL (8.4-25.7); Bilirubin, Total 1.2 mg/dL (0.2-1.2); Calc. Creatinine Clearance 101 mL/min (70-130); Calcium 8.4 mg/dL (7.8-10.44); Carbon Dioxide 32 mmol/L (23-31); Chloride 99 mmol/L (98-107); Estimated GFR 87; Globulin 2.8 g/dL (2.4-3.5); Glucose 72 mg/dL (80-115); Potassium 3.9 mmol/L (3.5-5.1); Protein, Total 5.8 g/dL (5.8-8.1); Sodium 140 mmol/L (136-145)
[2023-12-02] MEDS: Sodium Chloride 3% (15 ML) NEB NEB SCH ×3 (07:28→18:14)
[2023-12-02] MEDS: Acetylcysteine (MUCOMYST) 200 MG/ML (10 ML VIAL) NEB SCH ×3 (07:28→18:14)
[2023-12-02] MEDS: Ipratropium/Albuterol 3 ML NEB NEB SCH ×3 (07:29→18:13)
[2023-12-02] MEDS: Cyanocobalamin (Vitamin B-12) 1,000 MCG TAB PO SCH (08:00)
[2023-12-02] MEDS: Folic Acid 1 MG TAB PO SCH (09:00)
[2023-12-02] MEDS: Senokot S 8.6-50 MG TAB PO SCH ×2 (09:00→20:42)
[2023-12-02] MEDS: levETIRAcetam 500 MG (5 mL) VIAL SLOW IVP SCH ×2 (09:30→20:50)
[2023-12-02] MEDS: Famotidine/PF 20 mg/2ml Vial SLOW IVP SCH ×2 (09:30→20:51)
[2023-12-02] MEDS: Polyethylene Glycol 3350 17 GM Packet PO SCH (10:07)
[2023-12-02] MEDS: Melatonin 3 MG TAB PO SCH (20:42)
[2023-12-02] MEDS ORDERED: Sodium Chloride 0.9% 100 ML ONE (20:48)
[2023-12-03] MEDS: Sodium Chloride 3% (15 ML) NEB NEB SCH ×3 (05:07→12:03)
[2023-12-03] MEDS: Levothyroxine Sodium 75 MCG TAB PO SCH (05:24)
[2023-12-03] MEDS: Furosemide 40 MG (4 mL) VIAL SLOW IVP SCH ×2 (05:26→13:55)
[2023-12-03 05:46] LABS: #Basophils 0.1 thou/uL (0.0-0.2); #Eosinphils 0.1 thou/uL (0.0-0.7); #Monocytes 0.8 thou/uL (0.11-0.59); #Neutrophils 4.7 thou/uL (1.40-6.50); %Basophils 0.8 % (0.0-1.0); %Eosinophils 1.6 % (0.0-10.0); %Lymphocytes 9.2 % (21.0-51.0); %Monocytes 13.2 % (0.0-10.0); %Neutrophils 74.1 % (42.0-75.0); Hemoglobin 9.2 g/dL (14.0-18.0); Mean Corpuscular HGB CONC 31.7 g/dL (32.0-36.0); Mean Corpuscular Hemoglobin 29.5 pg (27.0-31.0); Mean Corpuscular Volume 92.9 fl (78.0-98.0); Mean Platelet Volume 10.1 fL (7.4-10.4); Platelet Count 181 10x3/uL (130-400); RBC Distribution Width 15.5 % (11.5-14.5); Red Blood Cell (RBC) Count 3.12 mill/uL (4.70-6.10); White Blood Cell (WBC) Count 6.3 10x3/uL (4.8-10.8)
[2023-12-03 06:19] LABS: ALT (SGPT) 7 U/L (8-55); AST (SGOT) 39 U/L (5-34); Alkaline Phosphatase 125 U/L (40-110); Anion Gap 11 mmol/L (10-20); BUN (Urea Nitrogen) 20 mg/dL (8.4-25.7); Bilirubin, Total 1.1 mg/dL (0.2-1.2); Calc. Creatinine Clearance 108 mL/min (70-130); Calcium 8.4 mg/dL (7.8-10.44); Carbon Dioxide 36 mmol/L (23-31); Chloride 98 mmol/L (98-107); Estimated GFR 93; Globulin 2.7 g/dL (2.4-3.5); Glucose 74 mg/dL (80-115); Potassium 4.2 mmol/L (3.5-5.1); Protein, Total 5.7 g/dL (5.8-8.1); Sodium 141 mmol/L (136-145)
[2023-12-03] MEDS: Ipratropium/Albuterol 3 ML NEB NEB SCH ×5 (07:42→23:10)
[2023-12-03] MEDS: Acetylcysteine (MUCOMYST) 200 MG/ML (10 ML VIAL) NEB SCH ×2 (07:42)
[2023-12-03] MEDS: Famotidine/PF 20 mg/2ml Vial SLOW IVP SCH ×2 (08:29→21:23)
[2023-12-03] MEDS: levETIRAcetam 500 MG (5 mL) VIAL SLOW IVP SCH ×2 (08:32→21:23)
[2023-12-03] MEDS: Folic Acid 1 MG TAB PO SCH (09:03)
[2023-12-03] MEDS: Senokot S 8.6-50 MG TAB PO SCH ×2 (09:03→21:23)
[2023-12-03] MEDS: Polyethylene Glycol 3350 17 GM Packet PO SCH (09:03)
[2023-12-03] MEDS: Cyanocobalamin (Vitamin B-12) 1,000 MCG TAB PO SCH (09:03)
[2023-12-03] MEDS ORDERED: Levothyroxine 100 MCG SDV SLOW IVP SCH (10:00)
[2023-12-03] MEDS ORDERED: Transdermal Patch Removal TOP SCH (15:00)
[2023-12-03] MEDS: Melatonin 3 MG TAB PO SCH (21:22)
[2023-12-03 22:06] LABS: BUN (Urea Nitrogen) 17 mg/dL (8.4-25.7); Calc. Creatinine Clearance 108 mL/min (70-130); Calcium 8.7 mg/dL (7.8-10.44); Estimated GFR 93; Glucose 92 mg/dL (80-115); Magnesium 1.9 mg/dL (1.6-2.6)
[2023-12-03 22:14] LABS: Anion Gap 16 mmol/L (10-20); Carbon Dioxide 37 mmol/L (23-31); Chloride 93 mmol/L (98-107); Potassium 3.3 mmol/L (3.5-5.1); Sodium 143 mmol/L (136-145)
[2023-12-03] MEDS ORDERED: Magnesium 2 GM/50 ML(in water) 2 GM in Premix 1 BAG IVPB SCH (22:45)
[2023-12-03] MEDS: Potassium Chloride 20 MEQ in Premix 1 BAG IVPB SCH (23:04)
[2023-12-04] MEDS: Potassium Chloride 20 MEQ in Premix 1 BAG IVPB SCH (01:09)
[2023-12-04] MEDS: Levothyroxine 100 MCG SDV SLOW IVP SCH (05:28)
[2023-12-04] MEDS: Furosemide 40 MG (4 mL) VIAL SLOW IVP SCH ×2 (05:28→14:41)
[2023-12-04] MEDS: Ipratropium/Albuterol 3 ML NEB NEB SCH ×4 (07:05→23:07)
[2023-12-04 07:43] LABS: #Basophils 0.1 thou/uL (0.0-0.2); #Eosinphils 0.1 thou/uL (0.0-0.7); #Monocytes 1.1 thou/uL (0.11-0.59); #Neutrophils 7.3 thou/uL (1.40-6.50); %Basophils 0.6 % (0.0-1.0); %Eosinophils 0.8 % (0.0-10.0); %Lymphocytes 4.9 % (21.0-51.0); %Monocytes 12.3 % (0.0-10.0); %Neutrophils 80.3 % (42.0-75.0); Hematocrit 35.8 % (42.0-52.0); Hemoglobin 11.2 g/dL (14.0-18.0); Mean Corpuscular HGB CONC 31.3 g/dL (32.0-36.0); Mean Corpuscular Hemoglobin 29.3 pg (27.0-31.0); Mean Corpuscular Volume 93.7 fl (78.0-98.0); Mean Platelet Volume 10.3 fL (7.4-10.4); Platelet Count 253 10x3/uL (130-400); RBC Distribution Width 15.6 % (11.5-14.5); Red Blood Cell (RBC) Count 3.82 mill/uL (4.70-6.10); White Blood Cell (WBC) Count 9.1 10x3/uL (4.8-10.8)
[2023-12-04] MEDS: Polyethylene Glycol 3350 17 GM Packet PO SCH (08:28)
[2023-12-04] MEDS: Senokot S 8.6-50 MG TAB PO SCH ×2 (08:29→20:43)
[2023-12-04] MEDS: levETIRAcetam 500 MG (5 mL) VIAL SLOW IVP SCH ×2 (08:33→20:44)
[2023-12-04] MEDS: Enoxaparin 40 MG (0.4 mL) SYRINGE SC SCH (08:34)
[2023-12-04] MEDS: Folic Acid 1 MG TAB PO SCH (08:34)
[2023-12-04] MEDS: Cyanocobalamin (Vitamin B-12) 1,000 MCG TAB PO SCH (08:34)
[2023-12-04] MEDS: Famotidine/PF 20 mg/2ml Vial SLOW IVP SCH ×2 (08:34→20:43)
[2023-12-04 08:43] LABS: Protein, Total 7.2 g/dL (5.8-8.1)
[2023-12-04 08:44] LABS: ALT (SGPT) 10 U/L (8-55); AST (SGOT) 49 U/L (5-34); Albumin 3.6 g/dL (3.4-4.8); Alkaline Phosphatase 155 U/L (40-110); BUN (Urea Nitrogen) 18 mg/dL (8.4-25.7); Bilirubin, Total 1.6 mg/dL (0.2-1.2); Calc. Creatinine Clearance 98 mL/min (70-130); Carbon Dioxide 37 mmol/L (23-31); Chloride 91 mmol/L (98-107); Estimated GFR 87; Globulin 3.6 g/dL (2.4-3.5); Glucose 125 mg/dL (80-115); Potassium 3.4 mmol/L (3.5-5.1); Sodium 144 mmol/L (136-145)
[2023-12-04 08:45] LABS: Anion Gap 19 mmol/L (10-20)
[2023-12-04 09:04] LABS: Magnesium 2.8 mg/dL (1.6-2.6); Phosphorus 2.8 mg/dL (2.3-4.7)
[2023-12-04] MEDS ORDERED: Potassium Chloride 20 MEQ in Premix 1 BAG IVPB SCH (09:30)
[2023-12-04] MEDS ORDERED: Potassium Bicarbonate/Cit Ac 20 MEQ TAB PER TUBE SCH (09:45)
[2023-12-04] MEDS: Morphine 2 MG/ML VIAL SLOW IVP PRN ×2 (10:42→16:09)
[2023-12-04] MEDS ORDERED: Dextrose 50% Abboject 50 ML SYRINGE SLOW IVP PRN (17:08)
[2023-12-04] MEDS ORDERED: Glucagon 1 MG/ML KIT IM PRN (17:08)
[2023-12-04] MEDS ORDERED: HumaLOG 300 UNITS/3 ML VIAL SC PRN (17:08)
[2023-12-04] MEDS ORDERED: Dextrose 5% in Water 1,000 ML IV PRN (17:08)
[2023-12-04 18:17] LABS: Potassium 3.4 mmol/L (3.5-5.1)
[2023-12-04] MEDS: Melatonin 3 MG TAB PO SCH (20:43)
[2023-12-05] MEDS: Potassium Chloride 20 MEQ in Premix 1 BAG IVPB SCH ×2 (00:36→02:41)
[2023-12-05 06:01] LABS: #Eosinphils 0.1 thou/uL (0.0-0.7); #Monocytes 1.3 thou/uL (0.11-0.59); #Neutrophils 6.8 thou/uL (1.40-6.50); %Basophils 0.3 % (0.0-1.0); %Eosinophils 0.9 % (0.0-10.0); %Lymphocytes 7.6 % (21.0-51.0); %Monocytes 14.8 % (0.0-10.0); %Neutrophils 75.5 % (42.0-75.0); Hematocrit 34.2 % (42.0-52.0); Hemoglobin 10.5 g/dL (14.0-18.0); Mean Corpuscular HGB CONC 30.7 g/dL (32.0-36.0); Mean Corpuscular Hemoglobin 28.9 pg (27.0-31.0); Mean Corpuscular Volume 94.2 fl (78.0-98.0); Mean Platelet Volume 10.1 fL (7.4-10.4); Platelet Count 221 10x3/uL (130-400); RBC Distribution Width 15.9 % (11.5-14.5); Red Blood Cell (RBC) Count 3.63 mill/uL (4.70-6.10)
[2023-12-05 06:27] LABS: ALT (SGPT) 10 U/L (8-55); AST (SGOT) 33 U/L (5-34); Albumin 3.4 g/dL (3.4-4.8); Alkaline Phosphatase 167 U/L (40-110); BUN (Urea Nitrogen) 27 mg/dL (8.4-25.7); Bilirubin, Total 1.6 mg/dL (0.2-1.2); Calc. Creatinine Clearance 111 mL/min (70-130); Estimated GFR 97; Globulin 3.1 g/dL (2.4-3.5); Glucose 116 mg/dL (80-115); Protein, Total 6.5 g/dL (5.8-8.1)
[2023-12-05] MEDS: Furosemide 40 MG (4 mL) VIAL SLOW IVP SCH (06:35)
[2023-12-05] MEDS: Levothyroxine 100 MCG SDV SLOW IVP SCH (06:35)
[2023-12-05 06:37] LABS: Anion Gap 14 mmol/L (10-20); Carbon Dioxide 43 mmol/L (23-31); Chloride 92 mmol/L (98-107); Potassium 3.9 mmol/L (3.5-5.1); Sodium 145 mmol/L (136-145)
[2023-12-05] MEDS: Ipratropium/Albuterol 3 ML NEB NEB SCH ×3 (07:59→19:17)
[2023-12-05] MEDS: Senokot S 8.6-50 MG TAB PO SCH ×2 (10:03→22:25)
[2023-12-05] MEDS: levETIRAcetam 500 MG (5 mL) VIAL SLOW IVP SCH ×2 (10:04→22:25)
[2023-12-05] MEDS: Famotidine/PF 20 mg/2ml Vial SLOW IVP SCH ×2 (10:04→22:25)
[2023-12-05] MEDS: Cyanocobalamin (Vitamin B-12) 1,000 MCG TAB PO SCH (10:04)
[2023-12-05] MEDS: Polyethylene Glycol 3350 17 GM Packet PO SCH (10:04)
[2023-12-05] MEDS: Enoxaparin 40 MG (0.4 mL) SYRINGE SC SCH (10:04)
[2023-12-05] MEDS: Folic Acid 1 MG TAB PO SCH (10:04)
[2023-12-05] MEDS ORDERED: CEFAZOLIN 2 GM in Sodium Chloride 0.9% 100 ML IVPB SCH (15:15)
[2023-12-05] MEDS: Melatonin 3 MG TAB PO SCH (22:25)
[2023-12-06] MEDS: Ipratropium/Albuterol 3 ML NEB NEB SCH ×4 (00:14→19:02)
[2023-12-06] MEDS ORDERED: NOREPINEPHRINE 8 MG/250 ML-D5W 250 ML ONE (03:45)
[2023-12-06] MEDS: Levothyroxine 100 MCG SDV SLOW IVP SCH (06:58)
[2023-12-06 07:39] LABS: #Basophils 0.1 thou/uL (0.0-0.2); #Monocytes 1.7 thou/uL (0.11-0.59); #Neutrophils 10.6 thou/uL (1.40-6.50); %Basophils 0.5 % (0.0-1.0); %Eosinophils 0.2 % (0.0-10.0); %Lymphocytes 5.5 % (21.0-51.0); %Monocytes 12.8 % (0.0-10.0); %Neutrophils 79.8 % (42.0-75.0); Hematocrit 37.8 % (42.0-52.0); Hemoglobin 11.2 g/dL (14.0-18.0); Mean Corpuscular HGB CONC 29.6 g/dL (32.0-36.0); Mean Corpuscular Hemoglobin 28.9 pg (27.0-31.0); Mean Corpuscular Volume 97.7 fl (78.0-98.0); Mean Platelet Volume 10.5 fL (7.4-10.4); Platelet Count 216 10x3/uL (130-400); RBC Distribution Width 16.3 % (11.5-14.5); Red Blood Cell (RBC) Count 3.87 mill/uL (4.70-6.10); White Blood Cell (WBC) Count 13.3 10x3/uL (4.8-10.8)
[2023-12-06 08:05] LABS: ALT (SGPT) 18 U/L (8-55); AST (SGOT) 41 U/L (5-34); Albumin 3.5 g/dL (3.4-4.8); Alkaline Phosphatase 198 U/L (40-110); BUN (Urea Nitrogen) 28 mg/dL (8.4-25.7); Bilirubin, Total 1.8 mg/dL (0.2-1.2); Calc. Creatinine Clearance 113 mL/min (70-130); Calcium 9.5 mg/dL (7.8-10.44); Estimated GFR 97; Globulin 3.4 g/dL (2.4-3.5); Glucose 113 mg/dL (80-115); Protein, Total 6.9 g/dL (5.8-8.1)
[2023-12-06 08:11] LABS: Carbon Dioxide Greater than 37 mmol/L (23-31); Chloride 95 mmol/L (98-107); Sodium 141 mmol/L (136-145)
[2023-12-06] MEDS: Cyanocobalamin (Vitamin B-12) 1,000 MCG TAB PO SCH (09:02)
[2023-12-06] MEDS: Famotidine/PF 20 mg/2ml Vial SLOW IVP SCH ×2 (09:02→20:06)
[2023-12-06] MEDS: Folic Acid 1 MG TAB PO SCH (09:02)
[2023-12-06] MEDS: Senokot S 8.6-50 MG TAB PO SCH ×2 (09:02→20:10)
[2023-12-06] MEDS: levETIRAcetam 500 MG (5 mL) VIAL SLOW IVP SCH ×2 (09:02→20:06)
[2023-12-06] MEDS: Polyethylene Glycol 3350 17 GM Packet PO SCH ×2 (09:02→09:06)
[2023-12-06] MEDS ORDERED: Ketamine In 0.9 % NaCl 50 MG/5 ML SYRINGE ONE (13:37)
[2023-12-06] MEDS ORDERED: Midazolam HCl 2 mg/2 ml Vial ONE (13:41)
[2023-12-06] MEDS: Melatonin 3 MG TAB PO SCH (20:10)
[2023-12-07] MEDS: Ipratropium/Albuterol 3 ML NEB NEB SCH ×4 (00:42→18:20)
[2023-12-07 05:13] LABS: #Basophils 0.1 thou/uL (0.0-0.2); #Monocytes 2.3 thou/uL (0.11-0.59); #Neutrophils 14.7 thou/uL (1.40-6.50); %Basophils 0.4 % (0.0-1.0); %Eosinophils 0.1 % (0.0-10.0); %Lymphocytes 3.2 % (21.0-51.0); %Monocytes 12.8 % (0.0-10.0); %Neutrophils 82.5 % (42.0-75.0); Hematocrit 36.8 % (42.0-52.0); Mean Corpuscular HGB CONC 29.9 g/dL (32.0-36.0); Mean Corpuscular Hemoglobin 28.8 pg (27.0-31.0); Mean Corpuscular Volume 96.3 fl (78.0-98.0); Mean Platelet Volume 10.9 fL (7.4-10.4); Platelet Count 224 10x3/uL (130-400); Red Blood Cell (RBC) Count 3.82 mill/uL (4.70-6.10); White Blood Cell (WBC) Count 17.8 10x3/uL (4.8-10.8)
[2023-12-07 05:37] LABS: ALT (SGPT) 18 U/L (8-55); AST (SGOT) 40 U/L (5-34); Albumin 3.4 g/dL (3.4-4.8); Alkaline Phosphatase 198 U/L (40-110); BUN (Urea Nitrogen) 28 mg/dL (8.4-25.7); Bilirubin, Total 2.1 mg/dL (0.2-1.2); Calc. Creatinine Clearance 103 mL/min (70-130); Calcium 9.4 mg/dL (7.8-10.44); Estimated GFR 94; Globulin 3.6 g/dL (2.4-3.5); Glucose 143 mg/dL (80-115)
[2023-12-07 05:47] LABS: Anion Gap 15 mmol/L (10-20); Carbon Dioxide 35 mmol/L (23-31); Chloride 96 mmol/L (98-107); Potassium 4.4 mmol/L (3.5-5.1); Sodium 142 mmol/L (136-145)
[2023-12-07] MEDS: Levothyroxine 100 MCG SDV SLOW IVP SCH (06:00)
[2023-12-07] MEDS: levETIRAcetam 500 MG (5 mL) VIAL SLOW IVP SCH ×2 (09:58→20:03)
[2023-12-07] MEDS: Folic Acid 1 MG TAB PO SCH (09:58)
[2023-12-07] MEDS: Cyanocobalamin (Vitamin B-12) 1,000 MCG TAB PO SCH (09:58)
[2023-12-07] MEDS: Polyethylene Glycol 3350 17 GM Packet PO SCH (09:58)
[2023-12-07] MEDS: Famotidine/PF 20 mg/2ml Vial SLOW IVP SCH ×2 (09:58→20:03)
[2023-12-07] MEDS: Enoxaparin 40 MG (0.4 mL) SYRINGE SC SCH (09:58)
[2023-12-07] MEDS: Senokot S 8.6-50 MG TAB PO SCH ×2 (09:59→20:03)
[2023-12-07] MEDS: Melatonin 3 MG TAB PO SCH (20:03)
[2023-12-07] MEDS: Morphine 2 MG/ML VIAL SLOW IVP PRN (20:44)
[2023-12-08] MEDS: Ipratropium/Albuterol 3 ML NEB NEB SCH ×4 (01:02→18:59)
[2023-12-08 06:41] LABS: #Basophils 0.1 thou/uL (0.0-0.2); #Monocytes 2.2 thou/uL (0.11-0.59); #Neutrophils 13.5 thou/uL (1.40-6.50); %Basophils 0.3 % (0.0-1.0); %Lymphocytes 3.1 % (21.0-51.0); %Monocytes 13.3 % (0.0-10.0); %Neutrophils 82.6 % (42.0-75.0); Hematocrit 32.2 % (42.0-52.0); Mean Corpuscular HGB CONC 31.1 g/dL (32.0-36.0); Mean Corpuscular Hemoglobin 29.9 pg (27.0-31.0); Mean Corpuscular Volume 96.4 fl (78.0-98.0); Mean Platelet Volume 11.5 fL (7.4-10.4); Platelet Count 206 10x3/uL (130-400); Red Blood Cell (RBC) Count 3.34 mill/uL (4.70-6.10); White Blood Cell (WBC) Count 16.3 10x3/uL (4.8-10.8)
[2023-12-08] MEDS: Levothyroxine 100 MCG SDV SLOW IVP SCH (06:46)
[2023-12-08 07:13] LABS: ALT (SGPT) 18 U/L (8-55); AST (SGOT) 36 U/L (5-34); Albumin 2.9 g/dL (3.4-4.8); Alkaline Phosphatase 193 U/L (40-110); Anion Gap 12 mmol/L (10-20); BUN (Urea Nitrogen) 29 mg/dL (8.4-25.7); Bilirubin, Total 2.4 mg/dL (0.2-1.2); Calc. Creatinine Clearance 113 mL/min (70-130); Calcium 9.1 mg/dL (7.8-10.44); Carbon Dioxide 37 mmol/L (23-31); Chloride 98 mmol/L (98-107); Estimated GFR 97; Globulin 3.6 g/dL (2.4-3.5); Glucose 101 mg/dL (80-115); Potassium 3.6 mmol/L (3.5-5.1); Protein, Total 6.5 g/dL (5.8-8.1); Sodium 143 mmol/L (136-145)
[2023-12-08] MEDS: Famotidine/PF 20 mg/2ml Vial SLOW IVP SCH ×2 (09:04→20:02)
[2023-12-08] MEDS: Cyanocobalamin (Vitamin B-12) 1,000 MCG TAB PO SCH (09:05)
[2023-12-08] MEDS: Enoxaparin 40 MG (0.4 mL) SYRINGE SC SCH (09:05)
[2023-12-08] MEDS: levETIRAcetam 500 MG (5 mL) VIAL SLOW IVP SCH ×2 (09:05→20:02)
[2023-12-08] MEDS: Polyethylene Glycol 3350 17 GM Packet PO SCH (09:05)
[2023-12-08] MEDS: Senokot S 8.6-50 MG TAB PO SCH ×2 (09:05→20:02)
[2023-12-08] MEDS: Folic Acid 1 MG TAB PO SCH (09:05)
[2023-12-08] MEDS: Morphine 2 MG/ML VIAL SLOW IVP PRN (18:15)
[2023-12-08] MEDS: Melatonin 3 MG TAB PO SCH (20:02)
[2023-12-09] MEDS: Ipratropium/Albuterol 3 ML NEB NEB SCH ×4 (02:55→18:26)
[2023-12-09] MEDS: Levothyroxine 100 MCG SDV SLOW IVP SCH (05:32)
[2023-12-09 06:44] LABS: #Monocytes 2.2 thou/uL (0.11-0.59); #Neutrophils 11.7 thou/uL (1.40-6.50); %Basophils 0.3 % (0.0-1.0); %Eosinophils 0.1 % (0.0-10.0); %Lymphocytes 4.2 % (21.0-51.0); %Monocytes 15.1 % (0.0-10.0); %Neutrophils 79.5 % (42.0-75.0); Hematocrit 33.1 % (42.0-52.0); Hemoglobin 10.1 g/dL (14.0-18.0); Mean Corpuscular HGB CONC 30.5 g/dL (32.0-36.0); Mean Corpuscular Hemoglobin 29.7 pg (27.0-31.0); Mean Corpuscular Volume 97.4 fl (78.0-98.0); Mean Platelet Volume 11.7 fL (7.4-10.4); Platelet Count 239 10x3/uL (130-400); RBC Distribution Width 17.5 % (11.5-14.5); White Blood Cell (WBC) Count 14.8 10x3/uL (4.8-10.8)
[2023-12-09 07:15] LABS: ALT (SGPT) 21 U/L (8-55); AST (SGOT) 41 U/L (5-34); Alkaline Phosphatase 213 U/L (40-110); Anion Gap 15 mmol/L (10-20); BUN (Urea Nitrogen) 28 mg/dL (8.4-25.7); Bilirubin, Total 2.8 mg/dL (0.2-1.2); Calc. Creatinine Clearance 99 mL/min (70-130); Calcium 9.1 mg/dL (7.8-10.44); Carbon Dioxide 36 mmol/L (23-31); Chloride 101 mmol/L (98-107); Estimated GFR 94; Globulin 3.9 g/dL (2.4-3.5); Glucose 99 mg/dL (80-115); Potassium 3.6 mmol/L (3.5-5.1); Protein, Total 6.9 g/dL (5.8-8.1); Sodium 148 mmol/L (136-145)
[2023-12-09] MEDS: Enoxaparin 40 MG (0.4 mL) SYRINGE SC SCH (09:27)
[2023-12-09] MEDS: Famotidine/PF 20 mg/2ml Vial SLOW IVP SCH ×2 (09:27→21:01)
[2023-12-09] MEDS: Cyanocobalamin (Vitamin B-12) 1,000 MCG TAB PO SCH (09:27)
[2023-12-09] MEDS: levETIRAcetam 500 MG (5 mL) VIAL SLOW IVP SCH ×2 (09:27→21:01)
[2023-12-09] MEDS: Senokot S 8.6-50 MG TAB PO SCH ×2 (09:27→21:01)
[2023-12-09] MEDS: Polyethylene Glycol 3350 17 GM Packet PO SCH (09:27)
[2023-12-09] MEDS: Folic Acid 1 MG TAB PO SCH (09:27)
[2023-12-09] MEDS: Melatonin 3 MG TAB PO SCH (21:01)
[2023-12-10] MEDS: Ipratropium/Albuterol 3 ML NEB NEB SCH ×4 (02:22→18:41)
[2023-12-10 04:18] LABS: #Monocytes 1.9 thou/uL (0.11-0.59); %Basophils 0.3 % (0.0-1.0); %Eosinophils 0.2 % (0.0-10.0); %Lymphocytes 5.4 % (21.0-51.0); %Monocytes 14.7 % (0.0-10.0); %Neutrophils 78.8 % (42.0-75.0); Hematocrit 33.2 % (42.0-52.0); Hemoglobin 10.3 g/dL (14.0-18.0); Mean Corpuscular Hemoglobin 29.9 pg (27.0-31.0); Mean Corpuscular Volume 96.2 fl (78.0-98.0); Mean Platelet Volume 11.6 fL (7.4-10.4); Platelet Count 264 10x3/uL (130-400); RBC Distribution Width 17.4 % (11.5-14.5); Red Blood Cell (RBC) Count 3.45 mill/uL (4.70-6.10); White Blood Cell (WBC) Count 12.7 10x3/uL (4.8-10.8)
[2023-12-10 05:11] LABS: ALT (SGPT) 24 U/L (8-55); AST (SGOT) 45 U/L (5-34); Alkaline Phosphatase 223 U/L (40-110); Anion Gap 12 mmol/L (10-20); BUN (Urea Nitrogen) 27 mg/dL (8.4-25.7); Bilirubin, Total 2.6 mg/dL (0.2-1.2); Calc. Creatinine Clearance 104 mL/min (70-130); Carbon Dioxide 35 mmol/L (23-31); Chloride 104 mmol/L (98-107); Estimated GFR 95; Glucose 118 mg/dL (80-115); Sodium 148 mmol/L (136-145)
[2023-12-10] MEDS: Levothyroxine 100 MCG SDV SLOW IVP SCH (05:36)
[2023-12-10] MEDS: Folic Acid 1 MG TAB PO SCH (09:16)
[2023-12-10] MEDS: Senokot S 8.6-50 MG TAB PO SCH ×2 (09:16→21:55)
[2023-12-10] MEDS: Cyanocobalamin (Vitamin B-12) 1,000 MCG TAB PO SCH (09:16)
[2023-12-10] MEDS: Enoxaparin 40 MG (0.4 mL) SYRINGE SC SCH (09:16)
[2023-12-10] MEDS: Famotidine/PF 20 mg/2ml Vial SLOW IVP SCH ×2 (09:16→21:55)
[2023-12-10] MEDS: Polyethylene Glycol 3350 17 GM Packet PO SCH (09:16)
[2023-12-10] MEDS: levETIRAcetam 500 MG (5 mL) VIAL SLOW IVP SCH ×2 (09:20→21:55)
[2023-12-10] MEDS ORDERED: Potassium Chloride 20 MEQ TAB PO SCH (10:00)
[2023-12-10 13:39] VITALS: BMI 22.5
[2023-12-10] MEDS: Morphine 2 MG/ML VIAL SLOW IVP PRN ×4 (14:29→22:30)
[2023-12-10] MEDS: Potassium Chloride 20 MEQ TAB PO SCH (17:31)
[2023-12-10] MEDS: Acetaminophen 650 MG/20.3 ML UDCUP PO PRN (22:22)
[2023-12-11] MEDS: Melatonin 3 MG TAB PO SCH ×2 (00:20→21:26)
[2023-12-11] MEDS: Ipratropium/Albuterol 3 ML NEB NEB SCH ×4 (01:22→18:51)
[2023-12-11] MEDS: Levothyroxine 100 MCG SDV SLOW IVP SCH (07:32)
[2023-12-11 08:35] LABS: #Basophils 0.1 thou/uL (0.0-0.2); #Monocytes 2.5 thou/uL (0.11-0.59); #Neutrophils 13.6 thou/uL (1.40-6.50); %Basophils 0.4 % (0.0-1.0); %Eosinophils 0.1 % (0.0-10.0); %Lymphocytes 3.8 % (21.0-51.0); %Monocytes 14.7 % (0.0-10.0); %Neutrophils 80.3 % (42.0-75.0); Hematocrit 36.1 % (42.0-52.0); Hemoglobin 10.8 g/dL (14.0-18.0); Mean Corpuscular HGB CONC 29.9 g/dL (32.0-36.0); Mean Platelet Volume 11.6 fL (7.4-10.4); Platelet Count 316 10x3/uL (130-400); RBC Distribution Width 17.7 % (11.5-14.5); Red Blood Cell (RBC) Count 3.72 mill/uL (4.70-6.10); White Blood Cell (WBC) Count 16.9 10x3/uL (4.8-10.8)
[2023-12-11] MEDS: Potassium Chloride 20 MEQ TAB PO SCH ×2 (08:51→17:08)
[2023-12-11] MEDS: Polyethylene Glycol 3350 17 GM Packet PO SCH (08:52)
[2023-12-11] MEDS: Cyanocobalamin (Vitamin B-12) 1,000 MCG TAB PO SCH (08:52)
[2023-12-11] MEDS: Folic Acid 1 MG TAB PO SCH (08:52)
[2023-12-11] MEDS: Enoxaparin 40 MG (0.4 mL) SYRINGE SC SCH (08:52)
[2023-12-11] MEDS: Famotidine/PF 20 mg/2ml Vial SLOW IVP SCH ×2 (08:52→21:26)
[2023-12-11] MEDS: levETIRAcetam 500 MG (5 mL) VIAL SLOW IVP SCH ×2 (08:52→21:26)
[2023-12-11] MEDS: Senokot S 8.6-50 MG TAB PO SCH ×2 (08:52→21:26)
[2023-12-11 10:26] LABS: ALT (SGPT) 27 U/L (8-55); AST (SGOT) 49 U/L (5-34); Albumin 2.9 g/dL (3.4-4.8); Alkaline Phosphatase 246 U/L (40-110); Anion Gap 18 mmol/L (10-20); BUN (Urea Nitrogen) 27 mg/dL (8.4-25.7); Bilirubin, Total 3.5 mg/dL (0.2-1.2); Calc. Creatinine Clearance 94 mL/min (70-130); Calcium 8.8 mg/dL (7.8-10.44); Carbon Dioxide 30 mmol/L (23-31); Chloride 107 mmol/L (98-107); Estimated GFR 93; Globulin 4.3 g/dL (2.4-3.5); Glucose 86 mg/dL (80-115); Potassium 3.7 mmol/L (3.5-5.1); Protein, Total 7.2 g/dL (5.8-8.1)
[2023-12-11 10:33] LABS: Critical Call Chemistry NUR.MAT @1033; Sodium 151 mmol/L (136-145)
[2023-12-12] MEDS: Ipratropium/Albuterol 3 ML NEB NEB SCH ×3 (01:20→11:59)
[2023-12-12] MEDS: Levothyroxine 100 MCG SDV SLOW IVP SCH (05:05)
[2023-12-12 06:44] LABS: #Basophils 0.1 thou/uL (0.0-0.2); #Monocytes 1.8 thou/uL (0.11-0.59); %Basophils 0.3 % (0.0-1.0); %Lymphocytes 2.6 % (21.0-51.0); %Neutrophils 87.1 % (42.0-75.0); Hematocrit 35.2 % (42.0-52.0); Hemoglobin 10.5 g/dL (14.0-18.0); Mean Corpuscular HGB CONC 29.8 g/dL (32.0-36.0); Mean Corpuscular Hemoglobin 29.2 pg (27.0-31.0); Mean Corpuscular Volume 98.1 fl (78.0-98.0); Mean Platelet Volume 11.5 fL (7.4-10.4); Platelet Count 339 10x3/uL (130-400); RBC Distribution Width 17.6 % (11.5-14.5); Red Blood Cell (RBC) Count 3.59 mill/uL (4.70-6.10); White Blood Cell (WBC) Count 19.6 10x3/uL (4.8-10.8)
[2023-12-12 07:08] LABS: ALT (SGPT) 24 U/L (8-55); AST (SGOT) 40 U/L (5-34); Albumin 2.9 g/dL (3.4-4.8); Alkaline Phosphatase 231 U/L (40-110); Anion Gap 13 mmol/L (10-20); BUN (Urea Nitrogen) 27 mg/dL (8.4-25.7); Bilirubin, Total 3.6 mg/dL (0.2-1.2); Calc. Creatinine Clearance 105 mL/min (70-130); Calcium 8.7 mg/dL (7.8-10.44); Carbon Dioxide 29 mmol/L (23-31); Chloride 110 mmol/L (98-107); Estimated GFR 96; Globulin 4.2 g/dL (2.4-3.5); Glucose 112 mg/dL (80-115); Potassium 4.1 mmol/L (3.5-5.1); Protein, Total 7.1 g/dL (5.8-8.1); Sodium 148 mmol/L (136-145)
[2023-12-12] MEDS: Polyethylene Glycol 3350 17 GM Packet PO SCH (09:34)
[2023-12-12] MEDS: Senokot S 8.6-50 MG TAB PO SCH ×2 (09:34→21:32)
[2023-12-12] MEDS: Folic Acid 1 MG TAB PO SCH (09:34)
[2023-12-12] MEDS: levETIRAcetam 500 MG (5 mL) VIAL SLOW IVP SCH ×2 (09:34→21:18)
[2023-12-12] MEDS: Famotidine/PF 20 mg/2ml Vial SLOW IVP SCH ×2 (09:34→21:19)
[2023-12-12] MEDS: Cyanocobalamin (Vitamin B-12) 1,000 MCG TAB PO SCH (09:34)
[2023-12-12] MEDS: Enoxaparin 40 MG (0.4 mL) SYRINGE SC SCH (09:35)
[2023-12-12] MEDS: Acetaminophen 650 MG/20.3 ML UDCUP PO PRN (09:59)
[2023-12-12 16:01] VITALS: BP 135/96
[2023-12-12] MEDS: Melatonin 3 MG TAB PO SCH (21:18)
[2023-12-13 05:43] LABS: Hematocrit 39.6 % (42.0-52.0); Hemoglobin 11.5 g/dL (14.0-18.0); Manual Diff?? YES; Mean Corpuscular Hemoglobin 29.5 pg (27.0-31.0); Platelet Count 390 10x3/uL (130-400); RBC Distribution Width 17.9 % (11.5-14.5); White Blood Cell (WBC) Count 25.4 10x3/uL (4.8-10.8)
[2023-12-13 05:49] LABS: Delete Auto Diff?? YES; Mean Corpuscular Volume 101.5 fl (78.0-98.0)
[2023-12-13] MEDS: Morphine 2 MG/ML VIAL SLOW IVP PRN (06:12)
[2023-12-13 06:26] LABS: Band 7 % (5-11); CellaVision Operator ID LAB.GE; Large Platelets 1.9 % (0-5); Lymphocytes 4 % (21-51); Metamyelocyte 2 % (0-0); Monocytes 6 % (0-10); Neutrophil 82 % (42-75); Nucleated RBC (Manual Ct) 1 % (0); Platelet Adequacy Comment Platelets Normal; Polychromasia SLIGHT = 2-3 cells HPF (0-2); Total Cell Count 104
[2023-12-13 06:35] LABS: ALT (SGPT) 25 U/L (8-55); AST (SGOT) 35 U/L (5-34); Albumin 2.9 g/dL (3.4-4.8); Alkaline Phosphatase 254 U/L (40-110); Anion Gap 15 mmol/L (10-20); BUN (Urea Nitrogen) 34 mg/dL (8.4-25.7); Bilirubin, Total 2.1 mg/dL (0.2-1.2); Calc. Creatinine Clearance 101 mL/min (70-130); Carbon Dioxide 33 mmol/L (23-31); Chloride 110 mmol/L (98-107); Estimated GFR 95; Globulin 4.9 g/dL (2.4-3.5); Glucose 117 mg/dL (80-115); Potassium 3.9 mmol/L (3.5-5.1); Protein, Total 7.8 g/dL (5.8-8.1)
[2023-12-13 06:43] LABS: Critical Call Chemistry NUR.LIZ@0642; Sodium 154 mmol/L (136-145)
[2023-12-13] MEDS: Levothyroxine 100 MCG SDV SLOW IVP SCH (06:59)
[2023-12-13] MEDS ORDERED: Dextrose 5% in Water 1,000 ML IV SCH ×2 (07:00→10:17)
[2023-12-13] MEDS: Polyethylene Glycol 3350 17 GM Packet PO SCH (09:51)
[2023-12-13] MEDS: Senokot S 8.6-50 MG TAB PO SCH (09:52)
[2023-12-13] MEDS: Cyanocobalamin (Vitamin B-12) 1,000 MCG TAB PO SCH (09:59)
[2023-12-13] MEDS: levETIRAcetam 500 MG (5 mL) VIAL SLOW IVP SCH (09:59)
[2023-12-13] MEDS: Folic Acid 1 MG TAB PO SCH (09:59)
[2023-12-13] MEDS: Enoxaparin 40 MG (0.4 mL) SYRINGE SC SCH (09:59)
[2023-12-13] MEDS: Famotidine/PF 20 mg/2ml Vial SLOW IVP SCH (09:59)
[2023-12-13] MEDS ORDERED: Meropenem 2 GM, Admixture Fee 1 EACH in Sodium Chloride 0.9% 100 ML IVPB SCH ×2 (10:30→20:00)
[2023-12-13] MEDS ORDERED: Lorazepam 2 MG/ML VIAL SLOW IVP PRN (11:22)
[2023-12-13] MEDS: Morphine 4 MG/ML VIAL SLOW IVP SCH ×2 (11:39→11:40)
[2023-12-13] MEDS ORDERED: Meropenem 2 GM in Sodium Chloride 0.9% 100 ML IVPB SCH (14:00)
[2023-12-13 17:41] VITALS: TEMP 97
== END 2023-12-13 17:02 | disposition expired | DRG 480 ==
LOC: ERS 18:20 → UNDOADMIN 21:59 → CCU 21:59 → IMCU/EMU 12-08 06:01
PROVIDERS: ADMIT Surgery; ATTEND Surgery
PROC: 5A09357 Assistance with Respiratory Ventilation, Less than 24 Consecutive Hours, Continuous Positive Airway Pressure (ICD-10-PCS; 2023-11-26)
PROC: 5A0945A Assistance with Respiratory Ventilation, 24-96 Consecutive Hours, High Flow/Velocity Cannula (ICD-10-PCS; 2023-11-27)
PROC: 3E033XZ Introduction of Vasopressor into Peripheral Vein, Percutaneous Approach (ICD-10-PCS; 2023-11-27)
PROC: 30233N1 Transfusion of Nonautologous Red Blood Cells into Peripheral Vein, Percutaneous Approach (ICD-10-PCS; 2023-11-27)
PROC: 0QS606Z Reposition Right Upper Femur with Intramedullary Internal Fixation Device, Open Approach (ICD-10-PCS; principal; 2023-11-28)
PROC: 30233J1 Transfusion of Nonautologous Serum Albumin into Peripheral Vein, Percutaneous Approach (ICD-10-PCS; 2023-11-28)
PROC: 5A09457 Assistance with Respiratory Ventilation, 24-96 Consecutive Hours, Continuous Positive Airway Pressure (ICD-10-PCS; 2023-11-30)
PROC: 4A033R1 Measurement of Arterial Saturation, Peripheral, Percutaneous Approach (ICD-10-PCS; 2023-11-30)
PROC: 5A09357 Assistance with Respiratory Ventilation, Less than 24 Consecutive Hours, Continuous Positive Airway Pressure (ICD-10-PCS; 2023-12-02)
PROC: 5A09557 Assistance with Respiratory Ventilation, Greater than 96 Consecutive Hours, Continuous Positive Airway Pressure (ICD-10-PCS; 2023-12-04)
PROC: 0DH63UZ Insertion of Feeding Device into Stomach, Percutaneous Approach (ICD-10-PCS; 2023-12-06)
PROC: 5A0945A Assistance with Respiratory Ventilation, 24-96 Consecutive Hours, High Flow/Velocity Cannula (ICD-10-PCS; 2023-12-11)
DX: S72.141A Displaced intertrochanteric fracture of right femur, initial encounter for closed fracture (principal); G93.41 Metabolic encephalopathy; J96.01 Acute respiratory failure with hypoxia; S22.41XA Multiple fractures of ribs, right side, initial encounter for closed fracture; Z66 Do not resuscitate; Z51.5 Encounter for palliative care; S32.048A Other fracture of fourth lumbar vertebra, initial encounter for closed fracture; L03.116 Cellulitis of left lower limb; L03.115 Cellulitis of right lower limb; J90 Pleural effusion, not elsewhere classified; I48.20 Chronic atrial fibrillation, unspecified; G40.119 Localization-related (focal) (partial) symptomatic epilepsy and epileptic syndromes with simple partial seizures, intractable, without status epilepticus; E87.1 Hypo-osmolality and hyponatremia; E46 Unspecified protein-calorie malnutrition; E87.3 Alkalosis; E87.0 Hyperosmolality and hypernatremia; E03.9 Hypothyroidism, unspecified; K21.9 Gastro-esophageal reflux disease without esophagitis; N18.9 Chronic kidney disease, unspecified; F17.220 Nicotine dependence, chewing tobacco, uncomplicated; E78.5 Hyperlipidemia, unspecified; I50.9 Heart failure, unspecified; J38.00 Paralysis of vocal cords and larynx, unspecified; D64.9 Anemia, unspecified; E88.09 Other disorders of plasma-protein metabolism, not elsewhere classified; W18.30XA Fall on same level, unspecified, initial encounter; R13.12 Dysphagia, oropharyngeal phase; E87.6 Hypokalemia; Z86.79 Personal history of other diseases of the circulatory system; Z87.820 Personal history of traumatic brain injury; Z98.890 Other specified postprocedural states; Z79.01 Long term (current) use of anticoagulants
CPT/HCPCS: 36415; 36416; 36430; 36600; 70450; 71045; 71275; 72125; 72170; 74018; 74177; 80053; 82533; 82805; 83605; 83735; 83880; 84100; 84443; 84484; 85025; 85379; 86850; 86900; 86901; 90471; 90715; 93005; 93010; 93306; 94640; 94660; 95816; 95819; 96374; 96375; 97139; C1713; J0690; J1650; J1885; J1940; J1953; J2060; J2250; J2270; J2272; J2405; J2704; J3010; J3475; J3480; J3490; J7030; J7050; J7070; J7608; J7620; P9016; P9047; Q9967; S0028